=== PATIENT | female | born 1955 | race Caucasian/White ===

== ENCOUNTER → 2018-05-11 12:58 | Outpatient (CLI) | payer OTHER, SELFPAY ==
--- NOTE | 2018-05-11 | DI.MRI.S_ITS ---
PROCEDURE: MR SHOULDER RT WO CON INDICATIONS: PAIN IN RIGHT SHOULDER TECHNIQUE: Noncontrast oblique coronal T2 fast spin echo with fat saturation, oblique sagittal T1 spin echo and T2 fast spin echo with fat saturation, axial T1 spin echo and T2 fast spin echo with fat saturation through the shoulder. COMPARISON: None. FINDINGS: Image quality: Excellent. Rotator cuff: Tendinosis and low-grade articular and bursal surface partial-thickness tear involving distal supraspinatus at its insertion the humeral head is seen. Distal infraspinatus tendinosis is also noted. There is distal subscapularis tendinosis and low-grade intrasubstance partial thickness tear. No full-thickness rotator cuff tendon rupture. Sagittal images demonstrate no significant rotator muscle atrophy. Bones and bursae: No bone marrow contusions or fractures. Moderate acromioclavicular joint osteoarthritis is seen with joint space narrowing and prominent marginal osteophyte formation compressing on musculotendinous junction of supraspinatus. Mild glenohumeral joint osteoarthritis is also seen. The acromion demonstrates conventional anatomy, without an os acromiale. Small amount of fluid is seen in glenohumeral joint and subacromial subdeltoid bursa. Capsule and soft tissues: In the absence of intra-articular contrast, there is suggestion of focal superior anterior labral tear at 12 to 1:00 position. The glenohumeral ligaments appear intact. Tendinosis involving most proximal intra-articular portion of lung in the biceps tendon is seen. The rotator interval appears normal, without fibrosis. The coracohumeral ligament is normal in thickness. IMPRESSION: 1. Tendinosis and low-grade articular and bursal surface partial-thickness tear involving distal supraspinatus. Distal infraspinatus tendinosis. Distal subscapularis tendinosis and low-grade intrasubstance partial thickness tear. No full-thickness rotator cuff tendon rupture. Tendinosis involving most proximal intra-articular portion of long head biceps tendon. 2. Moderate acromioclavicular joint osteoarthritis and mild glenohumeral joint osteoarthritis. 3. Suggestion of focal superior anterior labral tear at 12 to 1:00 position. Dictated by: Christian Zhong M.D. on 05/11/2018 at 14:45 Approved by: Christian Zhong M.D. on 05/11/2018 at 14:49
== END ==
PROVIDERS: Visit Provider General Practice
DX: M25.511 Pain in right shoulder (principal); M75.111 Incomplete rotator cuff tear or rupture of right shoulder, not specified as traumatic; M19.011 Primary osteoarthritis, right shoulder
CPT/HCPCS: 73221

== ENCOUNTER → 2018-08-24 13:46 | Outpatient (REF) | payer OTHER, SELFPAY | LOC: LAB 13:46 | PROVIDERS: Visit Provider Otolaryngology | DX: J34.89 Other specified disorders of nose and nasal sinuses (principal); J01.41 Acute recurrent pansinusitis; G47.33 Obstructive sleep apnea (adult) (pediatric); J32.8 Other chronic sinusitis | CPT/HCPCS: 87070; 87077; 87147; 87186 ==

== ENCOUNTER 2018-10-18 10:08 | Day surgery (SDC) | payer OTHER, SELFPAY ==
--- NOTE | 2018-10-18 | PATH_ITS ---
[facility] Accession Number: [id number] . 01 Material submitted: . PART A: colon - ASCENDING COLON POLYP PART B: rectum - RECTAL POLYP . 02 Diagnosis: A. Ascending Colon, Polyp, Biopsy: Tubular adenoma. . B. Rectum, Polyp, Biopsy: Hyperplastic polyp. V/10/19/2018 . 02 Electronically signed: . Vicky Nolan MD, Pathologist NPI- [id number] . 01 Gross description: . Part A: ASCENDING COLON POLYP: Received in formalin are multiple fragment(s) of renae, soft tissue measuring 0.1 x 0.1 x 0.1 cm to 0.3 x 0.2 x 0.2 cm which is entirely submitted and submitted entirely in 1 cassette(s) Part B: RECTAL POLYP: Received in formalin is 1 fragment(s) of renae, soft tissue measuring 0.4 x 0.4 x 0.4 cm which is entirely submitted and submitted entirely in 1 cassette(s) /DMC /DMC . 02 Pathologist provided ICD-10: D12.2 . 02 CPT . 069910, [id number] Performed at: 01 [facility] [address] Formerly named [facility], [place], [place] [id number] MD Artemio Dixon MD Phone: [phone] Performed at: 02 [facility] [address] [place], [place] [id number] MD Vicky Nolan MD Phone: [phone]
[2018-10-18] MEDS: SODIUM CHLORIDE 0.9% 1,000 ML 100 ML IV (11:46)
[2018-10-18 11:57] VITALS: BP 152/66; PULSE 71; RESP 15; TEMP 36.2; O2SAT 96; BMI 30.7
--- NOTE | 2018-10-18 12:17 | PM.PREOP ---
Pre-operative Note Interval Note History & Physical reviewed/Exam performed by Physician: Yes Changes to H&P: No ASA Class (for procedural sedation): II
--- NOTE | 2018-10-18 12:18 | PM.OP.ENDO ---
Operative Date/Time/Diagnoses Date of procedure: 10/18/18 Time of procedure: 12:18 Pre-op diagnosis: See indication and findings Procedure & Clinicians Study performed: EGD and colonoscopy Same procedure as scheduled: Yes Indications: Dysphagia and history of colon polyps. Also worsening GE reflux. There is a cough but this probably related to lisinopril. Surgeon: Eloisa Cisneros Procedure Notes Procedure in detail: After informed consent was obtained the patient was placed in the left lateral decubitus position. The video upper scope was placed into the oropharynx and with the patient's help swallowed into the esophagus. The esophagus stomach and duodenum were carefully examined. On withdrawal retroflexed view the GE junction was performed. The scope was removed. The patient tolerated the procedure well. The patient was then turned and the scope was substituted and reduced to the rectum. The scope was easily passed the cecum. Preparation was good. On slow withdrawal mucosa was carefully examined. The scope was removed. The patient tolerated the procedure well. Blood loss none Complications none Sedation Total sedation time is 23 minutes Fentanyl 100 mg Versed 7 mg IV titration Findings EGD 1. Normal esophagus with fairly wide open lower esophageal sphincter 2. Normal stomach 3. Normal duodenum Colonoscopy 1. 3 x 8 mm ascending colon polyp removed piecemeal with Jumbo biopsy forceps 2. 6 mm polyp in the rectum Jumbo biopsy removed completely Three. Scattered diverticulosis Sigmoid colon resection at 15 cm. And decide. Completely normal. Will get back in touch with the patient regarding her polyp results. She will need follow-up colonoscopy in 5 years. As for her upper tract symptoms these will merely need to be treated with adjusting medications. She might try now going on Nexium b.i.d. to see if this helps even further.
--- NOTE | 2018-10-18 13:04 | SUR.OPER ---
GLASSES IN LABELED BAG TO PACU WITH PATIENT
[2018-10-18] MEDS: MIDAZOLAM 5 MG/5 ML VIAL IV (13:07)
[2018-10-18] MEDS: fentaNYL 250 MCG/5 ML INJ IV (13:08)
[2018-10-18 13:24] VITALS: BP 98/54; PULSE 68; RESP 14; TEMP 36.6; O2SAT 95
[2018-10-18 13:29] VITALS: BP 103/54; PULSE 67; RESP 12; O2SAT 96
[2018-10-18 13:34] VITALS: BP 106/48; PULSE 67; RESP 15; O2SAT 96
[2018-10-18 13:41] VITALS: BP 127/69; PULSE 68; RESP 14; O2SAT 94
[2018-10-18 13:52] VITALS: BP 132/71; PULSE 72; RESP 13; TEMP 36.2; O2SAT 97
== END 2018-10-18 14:18 | disposition home or self-care (01) ==
PROVIDERS: PCP Preventive Medicine Public Health & General Preventive Medicine; Visit Provider Internal Medicine Gastroenterology
PROC: 0DJD8ZZ Inspection of Lower Intestinal Tract, Via Natural or Artificial Opening Endoscopic (ICD-10-PCS; CPT 45378; principal; 2018-10-18 12:30)
PROC: 0DJ08ZZ Inspection of Upper Intestinal Tract, Via Natural or Artificial Opening Endoscopic (ICD-10-PCS; CPT 43235; 2018-10-18 12:30)
DX: Z86.010 Personal history of colon polyps (principal); R13.10 Dysphagia, unspecified; K21.9 Gastro-esophageal reflux disease without esophagitis; K57.30 Diverticulosis of large intestine without perforation or abscess without bleeding; I10 Essential (primary) hypertension; J45.909 Unspecified asthma, uncomplicated; E03.9 Hypothyroidism, unspecified; D12.2 Benign neoplasm of ascending colon; K62.1 Rectal polyp
CPT/HCPCS: 45380; 43235; 88305; J2250; J3010

== ENCOUNTER → 2019-12-08 15:03 | Outpatient (CLI) | payer OTHER, SELFPAY ==
--- NOTE | 2019-12-08 15:05 | DI.MG.S_ITS ---
BILATERAL DIGITAL SCREENING MAMMOGRAM 3D/2D WITH CAD: 12/08/2019 CLINICAL: Routine screening. Family history of breast cancer. Comparison is made to exams dated: 09/28/2018 mammogram, 08/25/2017 mammogram, and 09/15/2016 mammogram - [facility]. The tissue of both breasts is predominantly fatty. Current study was also evaluated with a Computer Aided Detection (CAD) system. There is a 0.7 cm oval focal asymmetry in the left breast at 7 o'clock in the retroareolar region. This is more prominent and increased in size. No other significant masses, calcifications, or other findings are seen in either breast. IMPRESSION: INCOMPLETE: NEEDS ADDITIONAL IMAGING EVALUATION The 0.7 cm oval focal asymmetry in the left breast resembles a cyst and is indeterminate. Additional views with possible ultrasound are recommended. This exam was interpreted at Station ID: [id number]. NOTE: For mammograms, a report in lay terms will be sent to the patient. Approximately 15% of breast malignancies will not be visualized mammographically. In the management of a palpable breast mass, a negative mammogram must not discourage biopsy of a clinically suspicious lesion. Electronically Signed By: Yves thompson/avelino:12/10/2019 09:08:12 letter sent: Additional Imaging Needed ACR BI-RADS Category 0: Incomplete 3340F
== END ==
PROVIDERS: PCP Preventive Medicine Public Health & General Preventive Medicine; Referring Provider Internal Medicine; Visit Provider Internal Medicine
DX: Z12.31 Encounter for screening mammogram for malignant neoplasm of breast (principal); Z80.3 Family history of malignant neoplasm of breast
CPT/HCPCS: 77063; 77067

== ENCOUNTER → 2019-12-10 07:49 | Outpatient (CLI) | payer OTHER, SELFPAY ==
--- NOTE | 2019-12-10 | DI.MRI.S_ITS ---
PROCEDURE: MR LUMBAR SPINE WO/W CON INDICATIONS: Nerve root and plexus disorder, unspecified TECHNIQUE: Noncontrast sagittal T1 spin echo and T2 fast spin echo, sagittal STIR, axial T1 and T2 fast spin echo through the lumbar spine. In cases with scoliosis, additional coronal T2 fast spin echo may be performed. After the administration of contrast, sagittal and axial T1 spin echo with fat saturation through the lumbar spine. In this patient, additional images were obtained through the sacrum, with oblique coronal T1-weighted and STIR images as well as oblique axial T1 weighted and STIR images. Postcontrast fat saturated T1-weighted images were also obtained through the sacrum and the oblique coronal and oblique axial planes. COMPARISON: None. FINDINGS: Image quality: Excellent. Alignment and curvature: There is normal bony alignment. Marrow: Marrow is of normal overall signal. No acute vertebral body compression fractures. No suspicious marrow enhancement. Spinal cord: Conus medullaris terminates at the T12-L1 level. Visualized spinal cord demonstrates normal signal, without suspicious enhancement. Paraspinous soft tissues: No paravertebral masses or abnormal enhancement. This patient has transitional lumbar anatomy. For the purposes of this examination, the level with the last well-developed disc space is considered to be L5-S1. T12-L1: Normal appearance. L1-L2: Moderate loss of disc height is seen. Loss of disc signal is seen. Moderate disc bulge is seen, which is eccentric to the right. Bridging endplate osteophytes are seen. There is a mild right foraminal disc protrusion seen. There is mild left-sided and moderate right-sided neural foraminal narrowing seen. Mild central canal narrowing is seen. L2-L3: Mild to moderate loss of disc height and disc signal can be seen. Moderate central canal narrowing is seen. There is a focal annular fissure seen posteriorly. Mild to moderate disc bulge is seen. Bridging endplate osteophytes are seen. Mild facet joint hypertrophy is seen. L3-L4: Moderate loss of disc height and disc signal can be seen. Moderate disc bulge is seen, which is eccentric to the right. There is a right lateral recess/right foraminal disc extrusion, with superior migration of the disc material. Moderate facet joint hypertrophy is seen. Fluid is seen within the facet joints themselves. There is at least moderate left-sided and moderate to severe right-sided neural foraminal narrowing seen. There is a degree of compression seen upon the exiting nerve roots. Moderate central canal narrowing is seen. L4-L5: The disc height is well-preserved. Loss of disc signal is seen at this level. Mild generalized disc bulge is seen. Mild to moderate facet hypertrophy is seen. Mild bilateral neural foraminal narrowing is seen. No significant central canal narrowing is seen. L5-S1: The disc height is well-preserved. Loss of disc signal is seen at this level. Mild generalized disc bulge is seen. Mild to moderate facet hypertrophy is seen. There is mild left-sided and no right-sided neural foraminal narrowing seen. No significant central canal narrowing is seen. The sacrum demonstrates normal signal, without abnormal enhancement. No abnormal signal or enhancement can be seen along the sacral plexus. IMPRESSION: Multiple levels of degenerative change are seen, which are overall most prominent at the L3-L4 level. Normal-appearing sacrum, without an abnormality detected of the sacral plexus. Transitional lumbar anatomy. Dictated by: Zak Cardenas M.D. on 12/10/2019 at 8:41 Approved by: Zak Cardenas M.D. on 12/10/2019 at 8:49
== END ==
PROVIDERS: PCP Internal Medicine; Referring Provider Internal Medicine; Visit Provider Internal Medicine
DX: M47.816 Spondylosis without myelopathy or radiculopathy, lumbar region (principal); M47.817 Spondylosis without myelopathy or radiculopathy, lumbosacral region
CPT/HCPCS: 72158

== ENCOUNTER → 2020-01-01 14:14 | Outpatient (CLI) | payer OTHER, SELFPAY ==
--- NOTE | 2020-01-01 | DI.US.S_ITS ---
ULTRASOUND OF LEFT BREAST: 01/01/2020 CLINICAL: Patient returns today to evaluate a focal asymmetry in the left breast. Comparison is made to exams dated: 01/01/2020 mammogram, 12/08/2019 mammogram - [facility], 08/25/2017 mammogram, 09/28/2018 mammogram, and 09/15/2016 mammogram - [facility]. Color flow ultrasound of the left breast was performed on the areas of interest. March scale images of the real-time examination were reviewed. There is a 0.9 cm x 0.6 cm x 0.4 cm oval cyst in the left breast at 9 o'clock anterior depth. This oval cyst displays internal echoes and posterior acoustic enhancement. This corresponds with mammographic findings. IMPRESSION: PROBABLY BENIGN The 0.9 cm x 0.6 cm x 0.4 cm oval cyst in the left breast is consistent with a complicated cyst and is probably benign. A follow-up left ultrasound in 6 months is recommended to demonstrate stability. This exam was interpreted at Station ID: [id number]. Electronically Signed By: Aleyda hu/:01/01/2020 15:38:45 letter sent: Followup Recommended Ultrasound BI-RADS: 3 Probably benign
--- NOTE | 2020-01-01 | DI.MG.S_ITS ---
UNILATERAL LEFT DIGITAL DIAGNOSTIC MAMMOGRAM 3D/2D WITH ADDITIONAL VIEWS: 01/01/2020 CLINICAL: Additional evaluation requested from prior study. Comparison is made to exams dated: 12/08/2019 mammogram - [facility], 09/28/2018 mammogram, and 08/25/2017 mammogram - [facility]. The tissue of left breast is predominantly fatty. There is an oval mass in the left breast at 9 o'clock anterior depth. This is seen in additional views. No other significant masses or calcifications are seen in the breast. IMPRESSION: INCOMPLETE: NEEDS ADDITIONAL IMAGING EVALUATION The oval mass in the left breast likely represents a cyst and is indeterminate. A targeted ultrasound of the left breast is recommended and will be performed immediately following this exam. This exam was interpreted at Station ID: [id number]. NOTE: For mammograms, a report in lay terms will be sent to the patient. Approximately 15% of breast malignancies will not be visualized mammographically. In the management of a palpable breast mass, a negative mammogram must not discourage biopsy of a clinically suspicious lesion. Electronically Signed By: Aleyda Pena M.D. lk/:01/01/2020 15:07:55 ACR BI-RADS Category 0: Incomplete [id number]
== END ==
PROVIDERS: PCP Internal Medicine; Referring Provider Internal Medicine; Visit Provider Internal Medicine
DX: R92.8 Other abnormal and inconclusive findings on diagnostic imaging of breast (principal); N60.02 Solitary cyst of left breast
CPT/HCPCS: 76642; 77065; G0279

== ENCOUNTER → 2020-06-02 07:29 | Outpatient (CLI) | payer OTHER, SELFPAY ==
--- NOTE | 2020-06-02 | DI.US.S_ITS ---
ULTRASOUND OF LEFT BREAST: 06/02/2020 CLINICAL: 6 month follow-up of cyst. Comparison is made to exams dated: 01/01/2020 ultrasound, 01/01/2020 mammogram, 12/08/2019 mammogram - [facility], 09/28/2018 mammogram, 08/25/2017 mammogram, and 09/15/2016 mammogram - [facility]. Color flow ultrasound of the left breast was performed. March scale images of the real-time examination were reviewed. There is a stable 0.9 cm x 0.6 cm x 0.4 cm oval cyst in the left breast at 9 o'clock anterior depth. This oval cyst displays internal echoes and posterior acoustic enhancement. IMPRESSION: BENIGN There is no sonographic evidence of malignancy. The stable 0.9 cm x 0.6 cm x 0.4 cm oval cyst in the left breast is consistent with a complicated cyst and is benign. Return to annual mammogram screening schedule is recommended. SCREENING MAMMOGRAM IS DUE IN 6 MONTHS This exam was interpreted at Station ID: [id number]. Electronically Signed By: Wilferdo Hartman acr/:06/02/2020 11:05:06 letter sent: Normal Exam Ultrasound BI-RADS: 2 Benign
== END ==
PROVIDERS: PCP Internal Medicine; Referring Provider Internal Medicine; Visit Provider Internal Medicine
DX: R92.8 Other abnormal and inconclusive findings on diagnostic imaging of breast (principal); N60.02 Solitary cyst of left breast
CPT/HCPCS: 76642

== ENCOUNTER 2020-06-02 22:55 | Observation (INO) | payer OTHER, SELFPAY ==
[2020-06-02 23:01] VITALS: PULSE 80; RESP 24; O2SAT 96
[2020-06-02 23:02] VITALS: BP 219/106; PULSE 80; RESP 18; O2SAT 95
[2020-06-02 23:07] VITALS: BP 219/109; PULSE 76; RESP 20; TEMP 36.6; O2SAT 97; BMI 33.3
--- NOTE | 2020-06-02 23:08 | ED.CHESTPAIN ---
HPI - Chest Pain General Chief Complaint: Hypertension Stated Complaint: HIGH BLOOD PRESSURE HEAVYNESS OF CHEST Time Seen by Provider: 06/02/20 22:58 Source: patient and family Mode of arrival: Ambulatory Limitations: no limitations History of Present Illness HPI narrative: 64-year-old female, former smoker with history of hypertension and GERD presents with a chief complaint of multiple episodes of anterior chest pressure as well as elevated blood pressure. She has recently seen her primary care provider and some alterations were made in her blood pressure medications, it sounds like largely the addition of spironolactone. She often has blood pressures in the 170s but this evening when she took it she noted it had risen to the 190s. She denied any headache or blurred vision. She states that over the past few weeks she has had increasing episodes of chest pressure with exertion and increased fatigue with exertion. She most recently had chest pressure this evening, while at rest. She denies any radiation of her discomfort nor associated symptoms such as diaphoresis, nausea, vomiting. She denies any history of cardiac disease and has never had provocative testing. MD complaint: chest pain Onset (ago): hour(s) Duration: intermittent and improved Onset: during rest and during exertion Pain location: substernal Severity: moderate Quality: tightness and aching Pain radiation: none Relieving factors: rest Exacerbating factors: exertion Associated symptoms: dyspnea Treatments prior to arrival chest pain: none Related Data On Oral Contraceptives: No Home Medications Medication Instructions Recorded Confirmed esomeprazole magnesium [Nexium] 40 mg PO QDAY #0 06/13/16 06/03/20 fexofenadine [Sherry Allergy] 180 mg PO QDAY #0 06/13/16 06/03/20 fluticasone propionate [Flonase 1 spray INTRANASAL QDAY #0 06/13/16 06/03/20 Allergy Relief] levothyroxine [Synthroid] 0.125 mg PO QAM #0 06/13/16 06/03/20 lisinopril 40 mg PO QDAY #0 06/13/16 06/03/20 Resmed Airsense CPAP #1 ea 11/14/18 06/03/20 trazodone 50 mg tablet 50 mg PO DAILY 11/14/18 06/03/20 spironolactone See Protocol PO DIRECTED 06/03/20 06/03/20 Previous Rx's Medication Instructions Recorded hydrocodone-acetaminophen [[place]] 1 tab PO Q6HP PRN #10 tab 06/13/16 carvedilol 6.25 mg tablet 6.25 mg PO BID #60 tab 12/21/19 chlorthalidone 25 mg tablet 25 mg PO DAILY #30 tab 12/21/19 Allergies Allergy/AdvReac Type Severity Reaction Status Date / Time gluten Allergy Severe Agitated Verified 06/02/20 23:07 amoxicillin [From AUGMENTIN] Allergy Unknown Verified 06/02/20 23:07 clavulanic acid Allergy Unknown Verified 06/02/20 23:07 [From AUGMENTIN] codeine [CODEINE] Allergy Unknown Verified 06/02/20 23:07 Review of Systems Constitutional Constitutional: Denies chills, Reports fatigue, Denies fever(s), Denies frequent falls, Denies lethargy and Denies weakness Eyes Eyes: Denies change in vision, Denies eye discharge, Denies irritation and Denies loss of vision ENT Ears, Nose, Mouth, and Throat: Denies change in voice, Denies dizziness, Denies neck pain, Denies sore throat and Denies throat swelling Cardiovascular Cardiovascular: Reports chest pain, Denies irregular heart rhythm, Denies lightheadedness, Denies palpitations, Denies dyspnea and Reports dyspnea on exertion Respiratory Respiratory: Denies cough, Denies dyspnea, Reports dyspnea on exertion and Denies wheezing Gastrointestinal Gastrointestinal: Denies abdominal pain, Denies change in bowel habits, Denies diarrhea, Denies nausea and Denies vomiting Musculoskeletal Musculoskeletal: Denies neck pain and Denies numbness Integumentary/Breasts Skin/Breast: Denies pruritus, Denies erythema, Denies rash and Denies wounds Neurologic Neurologic: Denies behavioral changes, Denies confusion, Denies dizziness, Denies frequent falls, Denies loss of vision, Denies numbness and Denies weakness Psychiatric Psychiatric: Denies anxiety, Denies behavioral changes, Denies confusion, Denies depression, Denies homicidal ideation and Denies suicidal ideation Endocrine Endocrine: Reports fatigue, Denies flushing and Denies palpitations Hematologic/Lymphatic Hematologic/Lymphatic: Denies easy bruising Allergic/Immunologic Allergic/Immunologic: Denies urticaria, Denies throat swelling and Denies wheezing Patient History Medical History Excessive daytime sleepiness Exercise-induced asthma Hypertension Hypothyroidism Obesity Obstructive sleep apnea syndrome Primary insomnia Snoring Family History (Updated 06/03/20 @ 04:24 by DINORAH Shepherd) Father Myocardial infarction Mother Cancer Brother Atrial fibrillation Sister Atrial fibrillation Myocardial infarction Social History marital status: household members: spouse lives independently: Yes caregiver/support person: No education level: college occupational status: employed ( [employer]) travel history: over 6 months ago Smoking Status: Former smoker alcohol intake: current Smoking Status: Former smoker alcohol intake frequency: 0-2 drinks per day Substance Use Type: does not use Exam Narrative Exam Narrative: GENERAL: [64] year old patient appears stated age. Well-nourished, well-developed patient, in mild distress. HEAD: Atraumatic. Normocephalic. EYES: Pupils equal round and reactive. Extraocular motions intact. No scleral icterus. No injection or drainage. ENT: Nose without bleeding, purulent drainage. Throat without erythema, tonsillar hypertrophy or exudate. Airway patent. NECK: Trachea midline. Non tender CARDIOVASCULAR: Regular rate and rhythm without murmurs, gallops, or rubs. RESPIRATORY: Clear to auscultation. Breath sounds equal bilaterally. No wheezes, rales, or rhonchi. GASTROINTESTINAL: Abdomen soft, non-tender, nondistended. EXTREMITIES: No edema or joint tenderness. BACK: Nontender without deformity or crepitance. No flank tenderness. NEURO: AOx3. SKIN: No rash or erythema of visible areas Initial Vital Signs Initial Vital Signs: Vital Signs Pulse Rate 80 06/02/20 23:01 Respiratory Rate 24 06/02/20 23:01 Pulse Oximetry 96 06/02/20 23:01 Course Course Course Narrative: Patient developed rather significant headache after nitro. Orders Ordered: ED Orders 06/02/20 23:04 Complete Blood Count AUTO DIFF Stat Comprehensive Metabolic Panel Stat D Dimer Stat Lipase Stat NT-proBNP (BNP-Adult 18+) Stat Prothrombin Time INR Stat Troponin & CK Cardiac Panel Stat 06/02/20 23:09 XR chest 1V Stat 06/03/20 00:04 COVID19 Stat 06/03/20 01:06 Education, smoking cessation ONGOING 06/03/20 01:09 Consult to Dietitian, Adult Routine Consult to Discharge Planning Routine 06/03/20 03:13 Troponin I Urgent 06/03/20 07:00 Basic Metabolic Panel Urgent Lipid Panel Urgent Magnesium Urgent Troponin I Urgent Acetaminophen (Acetaminophen 325 Mg Tablet) 650 mg PO Q6HR PRN PRN Reason: Fever/Mild Pain (1-3) Aspirin (Aspirin Ec 81 Mg Tablet) 81 mg PO DAILY [facility] Atorvastatin Calcium (Atorvastatin 20 Mg Tablet) 20 mg PO BEDTIME [facility] Bisacodyl (Bisacodyl 5 Mg Tablet) 10 mg PO DAILY PRN PRN Reason: Constipation Carvedilol (Carvedilol 3.125 Mg Tablet) 6.25 mg PO BIDWM [facility] Docusate Sodium (Docusate 100 Mg Capsule) 100 mg PO BID PRN PRN Reason: Constipation Enoxaparin Sodium (Enoxaparin 40 Mg/0.4 Ml Syringe) 40 mg SUBCUT DAILY [facility] Hydralazine HCl (Hydralazine 20 Mg/Ml Vial) 10 mg IV Q6HR PRN PRN Reason: Hypertension Sodium Chloride (Normal Saline 0.9%) 1,000 mls @ 50 mls/hr IV CONT [facility] Last Admin: 06/03/20 02:42 Dose: 50 mls/hr Documented by: CNEVEU Levothyroxine Sodium (Levothyroxine 125 Mcg Tablet) 125 mcg PO QACBREAK [facility] Lisinopril (Lisinopril 20 Mg Tablet) 40 mg PO DAILY [facility] Morphine Sulfate (Morphine 2 Mg/Ml Inj) 2 mg IV Q5MIN PRN PRN Reason: Chest Pain Naloxone HCl (Naloxone 0.4 Mg/Ml Vial) 0.2 mg IV Q2MIN PRN PRN Reason: Opiate Reversal Nitroglycerin (Nitroglycerin 0.4 Mg Sl Tab) 0.4 mg SL [id number] PRN PRN Reason: Chest Pain Ondansetron HCl (Ondansetron 4 Mg/2 Ml Inj) 4 mg IV Q8HR PRN PRN Reason: Nausea And Vomiting Pantoprazole Sodium (Pantoprazole 40 Mg Tablet) 40 mg PO 0600 [facility] Spironolactone (Spironolactone 25 Mg Tablet) 125 mg PO SEEINSTR [facility] Discontinued Medications Aspirin (Aspirin 81 Mg Chew Tab) 324 mg PO NOW ONE Stop: 06/02/20 23:09 Last Admin: 06/02/20 23:21 Dose: Not Given Documented by: RMARTIN Aspirin (Aspirin 81 Mg Chew Tab) 324 mg PO NOW ONE Stop: 06/02/20 23:49 Last Admin: 06/03/20 00:03 Dose: 324 mg Documented by: NILSON Sodium Chloride (Normal Saline 0.9%) 1,000 mls @ 150 mls/hr IV CONT [facility] Last Infusion: 06/03/20 01:20 Dose: 0 mls/hr Documented by: Admin: 06/02/20 23:16 Dose: 150 mls/hr Documented by: NILSON Nitroglycerin (Nitroglycerin 0.4 Mg Sl Tab) 0.4 mg SL [id number] PRN PRN Reason: Chest Pain Last Admin: 06/03/20 02:32 Dose: 0.4 mg Documented by: Admin: 06/02/20 23:16 Dose: 0.4 mg Documented by: NILSON Nitroglycerin (Nitroglycerin Oint 1 Inch/Gm Oint...G.) 1 inch TOP NOW ONE Stop: 06/03/20 02:57 Last Admin: 06/03/20 03:04 Dose: 1 inch Documented by: SABINO Pantoprazole Sodium (Pantoprazole 40 Mg Vial) 40 mg IV NOW ONE Stop: 06/03/20 00:06 Last Admin: 06/03/20 00:08 Dose: 40 mg Documented by: NILSON Consultations Consultation #1: discussed with restaurant front manager cardio (Korin). She shares the opinion that patient is best served to be admitted for provocative testing and echo. No need to transfer her unless patient rules in. Consultation #2: hospitalist happy to accept. Vital Signs Vital signs: Vital Signs - 8 hr 06/02/20 23:01 06/02/20 23:02 06/02/20 23:07 Temperature 97.8 F Pulse Rate 80 80 76 Respiratory Rate 24 18 20 Blood Pressure 219/106 H 219/109 H Pulse Oximetry 96 95 97 06/02/20 23:16 06/02/20 23:30 06/02/20 23:31 Temperature Pulse Rate 79 89 88 Respiratory Rate 20 20 Blood Pressure 219/106 H 180/84 H Pulse Oximetry 93 94 06/03/20 00:00 Temperature Pulse Rate 89 Respiratory Rate 18 Blood Pressure Pulse Oximetry 95 MDM - Chest Pain Lab Data Result diagrams: 06/02/20 23:04 06/02/20 23:04 Labs: Lab Results 06/02/20 06/02/20 06/02/20 Range/Units 23:04 23:04 23:04 WBC 8.6 (4.5-11.0) X10^3/uL RBC 4.26 (4.0-5.2) X10^6/uL Hgb 13.7 (12.0-16.0) g/dL Hct 39.5 (36-46) % MCV 92.7 (80-100) fL MCH 32.2 (26-34) PG MCHC 34.7 (30-36) % RDW 12.5 (11.6-14.8) % Plt Count 348 (150-400) X10^3/uL Neut % (Auto) 53.9 (50-75) % Lymph % (Auto) 33.7 (25-40) % [place] % (Auto) 9.7 (3-14) % Eos % (Auto) 1.8 L (2-4) % Baso % (Auto) 0.9 (0-2) % Neut # (Auto) 4600 (1002-4322) /uL Lymph # (Auto) 2900 (6421-8443) /uL [place] # (Auto) 800 (0-900) /uL Eos # (Auto) 200 (0-450) /uL Baso # (Auto) 100 (0-100) /uL PT 11.3 (10.1-12.7) SECONDS INR 1.0 (0.9-1.3) D-Dimer < 200 (<230) ng/mL Sodium 139 (137-145) mmol/L Potassium 4.0 (3.4-5.1) mmol/L Chloride 104 (98-107) mmol/L Carbon Dioxide 29 (22-32) mmol/L BUN 16 (7-17) mg/dL Creatinine 0.80 (0.52-1.04) mg/dL Estimated GFR > 60.0 (>60) mL/min BUN/Creatinine Ratio 20.0 (6-22) Glucose 108 (80-110) mg/dL Calcium 9.5 (8.4-10.2) mg/dL Total Bilirubin 0.4 (0.2-1.3) mg/dL AST 56 H (14-36) IU/L ALT 104 H (<35) IU/L Alkaline Phosphatase 78 (38-126) U/L Total Creatine Kinase 79 (30-135) U/L CK-MB (CK-2) TNP CK-MB (CK-2) Rel Index TNP Troponin I < 0.012 (0.01-0.034) ng/mL NT-Pro-B Natriuret Pep 57 (<125) pg/mL Total Protein 8.1 (6.3-8.2) g/dL Albumin 4.6 (3.5-5.0) g/dL Globulin 3.5 (1.7-4.1) g/dL Albumin/Globulin Ratio 1.3 (1.0-2.8) Lipase 109 (23-300) U/L COVID-19 PCR (Negative) 06/03/20 Range/Units 00:04 WBC (4.5-11.0) X10^3/uL RBC (4.0-5.2) X10^6/uL Hgb (12.0-16.0) g/dL Hct (36-46) % MCV (80-100) fL MCH (26-34) PG MCHC (30-36) % RDW (11.6-14.8) % Plt Count (150-400) X10^3/uL Neut % (Auto) (50-75) % Lymph % (Auto) (25-40) % [place] % (Auto) (3-14) % Eos % (Auto) (2-4) % Baso % (Auto) (0-2) % Neut # (Auto) (9494-8491) /uL Lymph # (Auto) (1544-4988) /uL [place] # (Auto) (0-900) /uL Eos # (Auto) (0-450) /uL Baso # (Auto) (0-100) /uL PT (10.1-12.7) SECONDS INR (0.9-1.3) D-Dimer (<230) ng/mL Sodium (137-145) mmol/L Potassium (3.4-5.1) mmol/L Chloride (98-107) mmol/L Carbon Dioxide (22-32) mmol/L BUN (7-17) mg/dL Creatinine (0.52-1.04) mg/dL Estimated GFR (>60) mL/min BUN/Creatinine Ratio (6-22) Glucose (80-110) mg/dL Calcium (8.4-10.2) mg/dL Total Bilirubin (0.2-1.3) mg/dL AST (14-36) IU/L ALT (<35) IU/L Alkaline Phosphatase (38-126) U/L Total Creatine Kinase (30-135) U/L CK-MB (CK-2) CK-MB (CK-2) Rel Index Troponin I (0.01-0.034) ng/mL NT-Pro-B Natriuret Pep (<125) pg/mL Total Protein (6.3-8.2) g/dL Albumin (3.5-5.0) g/dL Globulin (1.7-4.1) g/dL Albumin/Globulin Ratio (1.0-2.8) Lipase (23-300) U/L COVID-19 PCR Negative (Negative) MDM Narrative Medical decision making narrative: Though patient presents with chief complaint of elevated BP there is no clear temporal relationship between HTN and chest pain, when in fact the CP seems to be provoked by exertion. Patient requires admission to further evaluate this. Discharge Plan Departure Patient Disposition: Admitted as Observation Clinical Impression: Chest pain Admit Date/Time: 06/03/20 01:08 Admit Provider: Delfin Piña
--- NOTE | 2020-06-02 23:09 | DI.RAD.S_ITS ---
PROCEDURE: XR CHEST 1V INDICATIONS: chest pain TECHNIQUE: One view of the chest was acquired. COMPARISON: None. FINDINGS: Surgical changes and devices: None. Lungs and pleura: Lungs are clear. No pleural effusions or pneumothorax. Mediastinum: Mediastinal contours appear normal. Heart size is normal. Bones and chest wall: No suspicious bony lesions. Overlying soft tissues appear unremarkable. IMPRESSION: No acute cardiopulmonary disease. Dictated by: Bailey Silva M.D. on 06/03/2020 at 8:46 Approved by: Bailey Silva M.D. on 06/03/2020 at 8:46
[2020-06-02 23:16] VITALS: BP 219/106; PULSE 79
[2020-06-02] MEDS: NITROGLYCERIN 0.4 MG SL TAB SL (23:16)
[2020-06-02] MEDS: SODIUM CHLORIDE 0.9% 1,000 ML 150 ML IV (23:16)
[2020-06-02 23:19] LABS: Add Manual Diff / Slide Review NO; Basophils Absolute Auto 100 /uL (0-100); Basophils Percent Auto 0.9 % (0-2); Eosinophils Absolute Auto 200 /uL (0-450); Eosinophils Percent Auto 1.8 % (2-4); Hematocrit 39.5 % (36-46); Hemoglobin 13.7 g/dL (12.0-16.0); Lymphocytes Absolute Auto 2900 /uL (1100-4500); Lymphocytes Percent Auto 33.7 % (25-40); Mean Corpuscular HGB Conc 34.7 % (30-36); Mean Corpuscular Hemoglobin 32.2 PG (26-34); Mean Corpuscular Volume 92.7 fL (80-100); Monocytes Absolute Auto 800 /uL (0-900); Monocytes Percent Auto 9.7 % (3-14); Neutrophils Absolute Auto 4600 /uL (1500-7000); Neutrophils Percent Auto 53.9 % (50-75); Platelet Count 348 X10^3/uL (150-400); Red Blood Cell Count 4.26 X10^6/uL (4.0-5.2); Red Cell Distribution Width 12.5 % (11.6-14.8); White Blood Cell Count 8.6 X10^3/uL (4.5-11.0)
[2020-06-02 23:21] LABS: Prothrombin Time 11.3 SECONDS (10.1-12.7)
[2020-06-02 23:25] LABS: Alanine Aminotransferase 104 IU/L (<35); Albumin 4.6 g/dL (3.5-5.0); Albumin Globulin Ratio 1.3 (1.0-2.8); Alkaline Phosphatase 78 U/L (38-126); Aspartate Aminotransferase 56 IU/L (14-36); Bilirubin Total 0.4 mg/dL (0.2-1.3); Blood Urea Nitrogen 16 mg/dL (7-17); Calcium 9.5 mg/dL (8.4-10.2); Carbon Dioxide 29 mmol/L (22-32); Chloride 104 mmol/L (98-107); Creatine Kinase 79 U/L (30-135); D Dimer < 200 ng/mL (<230); Estimated Glomerular Filt Rate > 60.0 mL/min (>60); Globulin 3.5 g/dL (1.7-4.1); Glucose 108 mg/dL (80-110); HEMOLYSIS 22 (0-50); Lipase 109 U/L (23-300); Sodium 139 mmol/L (137-145); Total Protein 8.1 g/dL (6.3-8.2)
[2020-06-02 23:30] VITALS: PULSE 89; RESP 20; O2SAT 93
[2020-06-02 23:31] VITALS: BP 180/84; PULSE 88; RESP 20; O2SAT 94
[2020-06-02 23:37] LABS: NT-proBNP (BNP-Adult 18+) 57 pg/mL (<125); Troponin I < 0.012 ng/mL (0.01-0.034)
[2020-06-03] VITALS (11 sets, daily range): BP systolic 138–183; BP diastolic 75–100; PULSE 74–89; RESP 16–20; TEMP 35.9–36.4; O2SAT 95–98; BMI 33.3
[2020-06-03] MEDS: ASPIRIN 81 MG CHEW TAB 324 MG PO (00:03)
[2020-06-03] MEDS: PANTOPRAZOLE 40 MG VIAL IV (00:08)
[2020-06-03 00:36] LABS: COVID19 -Nasal RAPID Negative (Negative)
--- NOTE | 2020-06-03 02:20 | PC.NURSE ---
patient admitted to AC room 207 from ED, report received from ER nurse. Pt can ambulate independently and was able to go to the bathroom without assistance. Pt admission assessment done. Pt complains of chest tightness while in the elevator with ED RN. EKG obtained, Pt is hypertensive without any symptoms aside from chest tightness
[2020-06-03] MEDS: NITROGLYCERIN 0.4 MG SL TAB SL (02:32)
[2020-06-03] MEDS: SODIUM CHLORIDE 0.9% 1,000 ML 50 ML IV (02:42)
[2020-06-03] MEDS: NITROGLYCERIN OINT 1 INCH/GM OINT...G. TOP (03:04)
--- NOTE | 2020-06-03 03:06 | PM.HP.1 ---
History of Present Illness History of Present Illness Date Patient Seen: 06/03/20 Time Patient Seen: 02:30 Chief complaint: HIGH BLOOD PRESSURE HEAVYNESS OF CHEST Narrative: Ms. Mery Price is a 64-year-old female patient with a past medical history significant for exercise-induced asthma, hypertension, hypothyroidism obstructive sleep apnea on CPAP and obesity presents to the ER with complaints of chest pain. The patient recent ports developing 2 episodes of chest pain today with an onset with activity that is nonradiating and nonpleuritic. She does report associated palpitations with shortness of breath and diaphoresis that she thought initially was hot flashes. The patient endorses increasing exertional dyspnea over the last week when walking up hills or stairs. The patient also endorses a 20 lb weight gain over the last few months. The patient reports having routine labs done with low potassium and was recently taken off chlorthalidone and started on spirolactone. She reports blood pressure was up to 190's at home today prompting her to present to the emergency department. She has had no recent flu or cold symptoms, fevers or chills. She endorses that her mother has COVID-19 following at [facility]. She denies headaches or dizziness nasal congestion or sore throat. Chest substernal chest pain as described above with palpitations. She denies epigastric or abdominal pain, no nausea vomiting, no diarrhea or constipation. She denies urinary symptoms. Upon arrival the ER the patient has a temperature of 97.8?, heart rate of 76, blood pressure 219/109, respiratory rate 20 saturating 97% on room air. Chest x-rays taken which finds minimal bibasilar atelectasis. On laboratory analysis he has white count of 8.6, hemoglobin of 13.7, hematocrit of 39.5 platelets 348. She has a PT of 11.3 and INR 1.0. Her D-dimer is less than 200. Her electrolytes are all within normal limits and she has a BUN of 16 and creatinine 0.8. Her nonfasting glucose is 108. She has a total bilirubin of 0.4, AST of 56, ALT of 104 and alkaline phosphatase of 78. Her total CK 79 and troponin is less than 0.012. Her proBNP is 57. COVID screening is negative. In the ER the patient received aspirin 324 mg, nitroglycerin for chest pain and Protonix. Cardiology was consulted and Dr. Langley agrees with admission following troponins and stress test. The patient is admitted to the medicine service for chest pain rule out ACS. Patient History Medical History Excessive daytime sleepiness Exercise-induced asthma Hypertension Hypothyroidism Obesity Obstructive sleep apnea syndrome Primary insomnia Snoring Family & Social History Family History (Updated 06/03/20 @ 04:24 by DINORAH Shepherd) Father Myocardial infarction Mother Cancer Brother Atrial fibrillation Sister Atrial fibrillation Myocardial infarction Social History: household members spouse Prior Living Arrangements House lives independently Yes caregiver/support person No Safety & Behavioral: Feels Safe in Current Yes Environment Been Physically Hurt or No Threatened By a Person Suicidal Ideation Description None Suicide Plan Description No Plan Tobacco & Substance use: Smoking Status Former smoker alcohol intake current alcohol intake frequency 0-2 drinks per day Substance Use Type does not use Meds Home Medications and Allergies Home Medications Medication Instructions Recorded Confirmed Type esomeprazole magnesium [Nexium] 40 mg PO QDAY #0 06/13/16 06/03/20 History fexofenadine [Sherry Allergy] 180 mg PO QDAY #0 06/13/16 06/03/20 History fluticasone propionate [Flonase 1 spray INTRANASAL QDAY #0 06/13/16 06/03/20 History Allergy Relief] hydrocodone-acetaminophen [Kinde] 1 tab PO Q6HP PRN #10 tab 06/13/16 06/03/20 Rx levothyroxine [Synthroid] 0.125 mg PO QAM #0 06/13/16 06/03/20 History lisinopril 40 mg PO QDAY #0 06/13/16 06/03/20 History Resmed Airsense CPAP #1 ea 11/14/18 06/03/20 History trazodone 50 mg tablet 50 mg PO DAILY 11/14/18 06/03/20 History carvedilol 6.25 mg tablet 6.25 mg PO BID #60 tab 12/21/19 06/03/20 Rx chlorthalidone 25 mg tablet 25 mg PO DAILY #30 tab 12/21/19 06/03/20 Rx spironolactone See Protocol PO DIRECTED 06/03/20 06/03/20 History Allergies Allergy/AdvReac Type Severity Reaction Status Date / Time gluten Allergy Severe Agitated Verified 06/02/20 23:07 amoxicillin [From AUGMENTIN] Allergy Unknown Verified 06/02/20 23:07 clavulanic acid Allergy Unknown Verified 06/02/20 23:07 [From AUGMENTIN] codeine [CODEINE] Allergy Unknown Verified 06/02/20 23:07 Review of Systems Review of Systems ROS: Yes All systems reviewed with the patient and are negative except as otherwise documented Exam Vital Signs (past 8 hours): - 06/02/20 23:01 06/02/20 23:02 06/02/20 23:07 Temperature 97.8 F Pulse Rate 80 80 76 Respiratory Rate 24 18 20 Blood Pressure 219/106 H 219/109 H Pulse Oximetry 96 95 97 06/02/20 23:16 06/02/20 23:30 06/02/20 23:31 Temperature Pulse Rate 79 89 88 Respiratory Rate 20 20 Blood Pressure 219/106 H 180/84 H Pulse Oximetry 93 94 06/03/20 00:00 06/03/20 01:54 06/03/20 02:20 Temperature 96.7 F L Pulse Rate 89 76 88 Respiratory Rate 18 20 16 Blood Pressure 183/95 H 156/85 H Pulse Oximetry 95 96 97 06/03/20 02:32 Temperature Pulse Rate 88 Respiratory Rate Blood Pressure 156/85 H Pulse Oximetry Oxygen Delivery Method Room Air Narrative Exam Narrative: GENERAL APPEARANCE: well developed, obese female with a BMI of 33.3, in no acute distress. HEENT: Normocephalic, PERRLA, conjunctiva clear, EOMs intact without nystagmus, mucous membranes are moist and pink. NECK/THYROID: neck supple, no JVD, no thyromegaly, trachea midline. LYMPH NODES: no cervical or supraclavicular lymphadenopathy. SKIN: [place], warm and dry, no visible lesions, rashes, ulcerations or petechiae. HEART: regular rate and rhythm, S1-S2, no murmur, no rubs or gallops, brisk capillary refill, trace bilateral lower extremity edema LUNGS: clear to auscultation bilaterally, no coarseness crackles or wheezing, no cough present CHEST: Symmetrical movement, no accessory muscle use, good tidal volume. ABDOMEN: Soft, round, tympanitic to percussion, no abdominal tenderness, no guarding or peritoneal signs, no organomegaly, no flank or suprapubic tenderness, active bowel tones. BACK: Normal curvature, nontender to palpation, no CVA tenderness on percussion EXTREMITIES: moves all extremities, strength is 5/5 and symmetrical, no deformities or joint effusions. NEUROLOGIC: AAO x 3, no focal neurologic deficits, cranial nerves II-XII grossly intact, sensation intact to light touch, hearing grossly normal to speech. PSYCH: Good judgment, good insight, linear thought process, cooperative, appropriate with stable behavior Objective Labs Result Diagrams: 06/02/20 23:04 06/02/20 23:04 Labs: Laboratory Results - last 24 hr 06/02/20 06/02/20 06/02/20 23:04 23:04 23:04 WBC 8.6 RBC 4.26 Hgb 13.7 Hct 39.5 MCV 92.7 MCH 32.2 MCHC 34.7 RDW 12.5 Plt Count 348 Neut % (Auto) 53.9 Lymph % (Auto) 33.7 [place] % (Auto) 9.7 Eos % (Auto) 1.8 L Baso % (Auto) 0.9 Neut # (Auto) 4600 Lymph # (Auto) 2900 [place] # (Auto) 800 Eos # (Auto) 200 Baso # (Auto) 100 PT 11.3 INR 1.0 D-Dimer < 200 Sodium 139 Potassium 4.0 Chloride 104 Carbon Dioxide 29 BUN 16 Creatinine 0.80 Estimated GFR > 60.0 BUN/Creatinine Ratio 20.0 Glucose 108 Calcium 9.5 Total Bilirubin 0.4 AST 56 H ALT 104 H Alkaline Phosphatase 78 Total Creatine Kinase 79 CK-MB (CK-2) TNP CK-MB (CK-2) Rel Index TNP Troponin I < 0.012 NT-Pro-B Natriuret Pep 57 Total Protein 8.1 Albumin 4.6 Globulin 3.5 Albumin/Globulin Ratio 1.3 Lipase 109 COVID-19 PCR 06/03/20 00:04 WBC RBC Hgb Hct MCV MCH MCHC RDW Plt Count Neut % (Auto) Lymph % (Auto) [place] % (Auto) Eos % (Auto) Baso % (Auto) Neut # (Auto) Lymph # (Auto) [place] # (Auto) Eos # (Auto) Baso # (Auto) PT INR D-Dimer Sodium Potassium Chloride Carbon Dioxide BUN Creatinine Estimated GFR BUN/Creatinine Ratio Glucose Calcium Total Bilirubin AST ALT Alkaline Phosphatase Total Creatine Kinase CK-MB (CK-2) CK-MB (CK-2) Rel Index Troponin I NT-Pro-B Natriuret Pep Total Protein Albumin Globulin Albumin/Globulin Ratio Lipase COVID-19 PCR Negative Assessment & Plan Assessment & Plan narrative: This is a 64-year-old female who presents to the hospital with with 2 episodes of chest pain associated with severe hypertension and progressive exertional dyspnea. 1. Acute chest pain, substernal, nonradiating, present on admission, active -patient without prior personal history cardiovascular disease however significant family history including her father brother and sister. -patient endorses increasing exertional dyspnea for 1 week, 2 episodes of chest pain today with episode chest pain for which she received nitroglycerin in the emergency department. -total CK is 79 and troponin is less than 0.012. BNP is 57. D-dimer is less than 200. -12 lead EKG reveals a normal sinus rhythm with a rate of 78 without ectopy or block, no ST or T-wave changes, no evidence of infarct. -chest x-ray reveals a normal cardiac silhouette with minimal bibasilar atelectasis. -patient received aspirin 324 mg in the emergency department, ordered aspirin 81 mg daily. -ordered atorvastatin 20 mg daily at bedtime -ordered nitroglycerin 0.4 mg sublingual Q 5 minutes x3 as needed for chest pain. -ordered morphine 2 mg IV as needed for chest pain unresponsive to nitroglycerin. -ordered echocardiogram. -Ordered cardiac stress test 40 the patient will be NPO. -will check a lipid panel, hemoglobin A1c, TSH and free T4. 2. Acute hypertensive urgency on chronic hypertension, present on admission, active. -patient presents to the the ER with complaints of chest pain and has elevated blood pressure of 219/109. Blood pressure improved to 162/75 following admission to the inpatient unit. -patient has had recent change in her antihypertensives changing from chlorthalidone to spirolactone. -will continue the patient's routine home regimen of lisinopril, spironolactone and carvedilol. -order hydralazine 10 mg IV as needed for systolic blood pressure greater than 180 or diastolic blood pressure greater than 100. 3. Hypothyroidism, chronic, stable -will continue patient's home regimen of levothyroxine 125 mcg daily. -ordered TSH and free T4 level. 4. Obstructive sleep apnea with CPAP, chronic, stable -requested respiratory therapy consult, patient has own CPAP machine. VTE prophylaxis: Enoxaparin IV fluid: Normal saline 50 cc/hour. Diet: NPO. Code status: Full code, The patient designates her son Albert to be her surrogate decision maker. The patient is admitted to the hospital due to the severity and persistence of her symptoms requiring further evaluation and treatment to prevent complications and adverse events. The patient is admitted as an observation with expected length of stay to be less than 2 midnights. COVID-19 COVID-19 status: Negative Result date/Date tested (Pos, Neg/Pending): 06/03/20 Scores GCS Sourav coma scale eye opening: Spontaneous Sourav coma scale verbal response: Orientated Sourav coma scale motor response: Obey commands [place] coma scale total score: 15
[2020-06-03 03:43] LABS: Troponin I < 0.012 ng/mL (0.01-0.034)
--- NOTE | 2020-06-03 04:16 | DI.ECHO.S_ITS ---
[facility]---------+ [facility] +---------+ : : [address] [address] : : : : [id number] : : : : Phone: [phone] Echocardiogram Report + + :Name: YULIANA REINOSO Study Date: 06/03/2020 Height: 65 in : :[facility] Weight: 200 lb : : Gender: Female BSA: 2.0 m2 : :: 1955 Age: 64 yrs BP: 183/95 mmHg: :Reason For Study: CHEST PAIN, EXERTIONAL DYSPNEA : :Ordering Physician: JOVI, : :DARIN COPELAND Performed By: Nhi Amador : :Referring: DARIN ESPANA : + + Interpretation Summary The left ventricle is normal in size. Left ventricular systolic function appears normal without focal wall motion abnormalities. The ejection fraction is estimated to be 60-65%. The right ventricle is normal in size and function. The right ventricular systolic pressure is estimated to be at least 40 mmHg based on an estimated right atrial pressure of 15 mm Hg. The left atrium is mildly dilated. Right atrial size is normal. There is mild to moderate mitral regurgitation. There is no other significant valvular heart disease. The aortic root is normal size. Procedure: A two-dimensional transthoracic echocardiogram with color flow and Doppler was performed. The study quality was technically adequate. There is no prior echocardiogram noted for this patient. The patient was in sinus rhythm with heart rates between 72-94 bpm during the exam. Left Ventricle: The left ventricle is normal in size. Left ventricular wall thickness is at the upper limits of normal. Left ventricular systolic function appears normal without focal wall motion abnormalities. The ejection fraction is estimated to be 60-65%. Right Ventricle: The right ventricle is normal in size and function. Atria: The left atrium is mildly dilated. Right atrial size is normal. There is no Doppler evidence for an interatrial shunt. Mitral Valve: The mitral valve leaflets appear mildly thickened, but open well. There is mild to moderate mitral regurgitation. Aortic Valve: The aortic valve is trileaflet. The aortic valve opens well. There is no aortic valve stenosis. No aortic regurgitation is present. Tricuspid Valve: The tricuspid valve leaflets are thin and pliable. The right ventricular systolic pressure is estimated to be at least 40 mmHg based on an estimated right atrial pressure of 15 mm Hg. There is mild to moderate tricuspid regurgitation. Pulmonic Valve: The pulmonic valve is not well visualized. There is no pulmonic valvular regurgitation. There is no other significant valvular heart disease. Great Vessels: The aortic root is normal size. The IVC is dilated (diameter is greater than 2.1 cm) and it collapses less than 50% with a sniff. This suggests a high right atrial pressure of 15 mm Hg. Pericardium/ Pleura There is no pericardial effusion. There is no pleural effusion. MMode/2D Measurements & Calculations LVIDd: 4.1 cm LVOT diam: 1.9 cm LVIDs: 2.5 cm Ao root diam: 3.0 cm FS: 39.4 % Ao Arch Diam (Prox Trans): 2.8 cm EPSS: 0.53 cm IVSd: 1.1 cm LVPWd: 1.0 cm LV lion. diameter/BSA (cm/m^2): 2.1 LV sys. diameter/BSA (cm/m^2): 1.3 LA A2 area: 21.5 cm2 RA long axis: 5.0 cm LA A4 area: 19.7 cm2 RA area: 15.9 cm2 LA length (vol): 5.6 cm RA vol: 43.2 ml LA vol: 64.0 ml RA : 21.8 ml/m2 LA vol index: 32.3 ml/m2 IVC diam: 2.2 cm RVD1 (basal): 3.6 cm TAPSE: 2.0 cm Doppler Measurements & Calculations Ao V2 max: 124.5 cm/sec LVOT Max Ric: 115.9 cm/sec Ao V2 mean: 87.7 cm/sec LV V1 max P.4 mmHg Ao max P.2 mmHg LV V1 VTI: 25.3 cm Ao mean P.5 mmHg ELYSSA(I,D): 2.5 cm2 Ao V2 VTI: 27.4 cm ELYSSA(V,D): 2.5 cm2 sev ratio: 0.92 ELYSSA indexed to BSA (cm^2/m^2): 1.3 Med Peak E' Ric: 6.8 cm/sec TR max ric: 248.9 cm/sec Lat Peak E' Ric: 10.3 cm/sec TR max P.8 mmHg PA V2 max: 66.7 cm/sec PA V2 mean: 46.0 cm/sec PA mean P.96 mmHg PA pr(Accel): 3.6 mmHg SV(LVOT): 68.9 ml Reading Physician:02:32 PM
[2020-06-03] MEDS: PANTOPRAZOLE 40 MG TABLET PO (05:41)
[2020-06-03] MEDS: LEVOTHYROXINE 137 MCG TABLET PO (06:49)
[2020-06-03] MEDS: ACETAMINOPHEN 325 MG TABLET 650 MG PO (07:47)
[2020-06-03] MEDS: ASPIRIN EC 81 MG TABLET PO (07:47)
[2020-06-03] MEDS: ENOXAPARIN 40 MG/0.4 ML SYRINGE SUBCUT (07:47)
[2020-06-03 08:00] LABS: BUN Creatinine Ratio 26.1 (6-22); Blood Urea Nitrogen 18 mg/dL (7-17); Calcium 8.9 mg/dL (8.4-10.2); Carbon Dioxide 27 mmol/L (22-32); Chloride 107 mmol/L (98-107); Cholesterol 157 mg/dL (140-199); Estimated Glomerular Filt Rate > 60.0 mL/min (>60); Glucose 114 mg/dL (80-110); HDL Cholesterol 28 mg/dL (40-60); HEMOLYSIS < 15 (0-50); LDL Cholesterol Calculated 88 mg/dL (<100); Magnesium 2.2 mg/dL (1.6-2.3); Potassium 3.8 mmol/L (3.4-5.1); Sodium 139 mmol/L (137-145); Triglycerides 206 mg/dL (35-150)
[2020-06-03 08:12] LABS: Hemoglobin A1C% w Est Avg Glu 5.6 % (4.0-6.0); Troponin I < 0.012 ng/mL (0.01-0.034)
[2020-06-03 08:17] LABS: Free T4, Direct Thyroxine 1.07 ng/dL (0.78-2.19)
--- NOTE | 2020-06-03 10:48 | PC.NURSE ---
Day shiift: Pt off funit for stress test at approx 1045.
--- NOTE | 2020-06-03 12:30 | PC.NURSE ---
Day shift: Pt back on AC unit at approx 1230. Per Stress Test OK for Pt to eat and drink now.
[2020-06-03] MEDS: MAG HYDROX/ALUM/SIMETH 30 ML UDC PO (14:28)
--- NOTE | 2020-06-03 16:49 | P.DS_ITS ---
History of Present Illness History of Present Illness Date Patient Seen: 06/03/20 Time Patient Seen: 16:49 Chief complaint: HIGH BLOOD PRESSURE HEAVYNESS OF CHEST Narrative: As per DINORAH Shepherd: Ms. Mery Price is a 64-year-old female patient with a past medical history significant for exercise-induced asthma, hypertension, hypothyroidism obstructive sleep apnea on CPAP and obesity presents to the ER with complaints of chest pain. The patient recent ports developing 2 episodes of chest pain today with an onset with activity that is nonradiating and nonpleuritic. She does report associated palpitations with shortness of breath and diaphoresis that she thought initially was hot flashes. The patient endorses increasing exertional dyspnea over the last week when walking up hills or stairs. The patient also endorses a 20 lb weight gain over the last few months. The patient reports having routine labs done with low potassium and was recently taken off chlorthalidone and started on spirolactone. She reports blood pressure was up to 190's at home today prompting her to present to the emergency department. She has had no recent flu or cold symptoms, fevers or chills. She endorses that her mother has COVID-19 following at [facility]. She denies headaches or dizziness nasal congestion or sore throat. Chest substernal chest pain as described above with palpitations. She denies epigastric or abdominal pain, no nausea vomiting, no diarrhea or constipation. She denies urinary symptoms. Upon arrival the ER the patient has a temperature of 97.8?, heart rate of 76, blood pressure 219/109, respiratory rate 20 saturating 97% on room air. Chest x-rays taken which finds minimal bibasilar atelectasis. On laboratory analysis he has white count of 8.6, hemoglobin of 13.7, hematocrit of 39.5 platelets 348. She has a PT of 11.3 and INR 1.0. Her D-dimer is less than 200. Her electrolytes are all within normal limits and she has a BUN of 16 and creatinine 0.8. Her nonfasting glucose is 108. She has a total bilirubin of 0.4, AST of 56, ALT of 104 and alkaline phosphatase of 78. Her total CK 79 and troponin is less than 0.012. Her proBNP is 57. COVID screening is negative. In the ER the patient received aspirin 324 mg, nitroglycerin for chest pain and Protonix. Cardiology was consulted and Dr. Langley agrees with admission following troponins and stress test. The patient is admitted to the medicine service for chest pain rule out ACS. Discharge Providers Provider Date of admission: 06/03/20 01:08 Discharge Date: 06/03/20 Primary care physician: Alejandra Barakat MD Consults: 06/03/20 01:09 Consult to Dietitian, Adult Routine Comment: Reason For Exam: Hypertensive urgency and chest Consult to Discharge Planning Routine Comment: 06/03/20 04:50 Consult to Respiratory Therapy Evaluate & Treat Comment: WATSON with CPAP Physician Instructions: Evaluate and treat Discharge provider: Delfin Regalado DO Summary Hospital Course Discharge Diagnosis: 1. Acute chest pain, substernal, nonradiating, present on admission, active 2. hypertensive urgency on chronic hypertension, present on admission, active. 3. Hypothyroidism, chronic, stable 4. Obstructive sleep apnea with CPAP, chronic, stableelow Hospital Course: This is a 64-year-old female who presented to the hospital with with 2 episodes of chest pain associated with severe hypertension and progressive exertional dyspnea. Patient had an intermediate risk score on admi ssion and underwent nuclear stress testing which was deemed low risk. Echocardiogram was unremarkable. She was discharged home with increased dosing of carvedilol and recommendation for follow up as an outpatient. Further evaluation can include pulmonary function testing as an outpatient. Exam Vital Signs (past 8 hours): - 06/03/20 12:50 06/03/20 14:22 06/03/20 15:10 Temperature 96.9 F L 97.5 F L Pulse Rate 83 85 77 Respiratory Rate 16 17 Blood Pressure 170/100 H 165/90 H 152/83 H Pulse Oximetry 96 97 Oxygen Delivery Method Room Air Oxygen Flow Rate 0 Narrative Exam Narrative: GENERAL APPEARANCE: well developed, obese female with a BMI of 33.3, in no acute distress. HEENT: Normocephalic, PERRLA, conjunctiva clear, EOMs intact without nystagmus, mucous membranes are moist and pink. NECK/THYROID: neck supple, no JVD, no thyromegaly, trachea midline. LYMPH NODES: no cervical or supraclavicular lymphadenopathy. SKIN: [place], warm and dry, no visible lesions, rashes, ulcerations or petechiae. HEART: regular rate and rhythm, S1-S2, no murmur, no rubs or gallops, brisk capillary refill, trace bilateral lower extremity edema LUNGS: clear to auscultation bilaterally, no coarseness crackles or wheezing, no cough present CHEST: Symmetrical movement, no accessory muscle use, good tidal volume. ABDOMEN: Soft, round, tympanitic to percussion, no abdominal tenderness, no guarding or peritoneal signs, no organomegaly, no flank or suprapubic tenderness, active bowel tones. BACK: Normal curvature, nontender to palpation, no CVA tenderness on percussion EXTREMITIES: moves all extremities, strength is 5/5 and symmetrical, no deformities or joint effusions. NEUROLOGIC: AAO x 3, no focal neurologic deficits, cranial nerves II-XII grossly intact, sensation intact to light touch, hearing grossly normal to speech. PSYCH: Good judgment, good insight, linear thought process, cooperative, appropriate with stable behavior Objective Labs Result Diagrams: 06/02/20 23:04 06/03/20 07:16 Labs: Laboratory Results - last 24 hr 06/02/20 06/02/20 06/02/20 23:04 23:04 23:04 WBC 8.6 RBC 4.26 Hgb 13.7 Hct 39.5 MCV 92.7 MCH 32.2 MCHC 34.7 RDW 12.5 Plt Count 348 Neut % (Auto) 53.9 Lymph % (Auto) 33.7 Union % (Auto) 9.7 Eos % (Auto) 1.8 L Baso % (Auto) 0.9 Neut # (Auto) 4600 Lymph # (Auto) 2900 Union # (Auto) 800 Eos # (Auto) 200 Baso # (Auto) 100 PT 11.3 INR 1.0 D-Dimer < 200 Sodium 139 Potassium 4.0 Chloride 104 Carbon Dioxide 29 BUN 16 Creatinine 0.80 Estimated GFR > 60.0 BUN/Creatinine Ratio 20.0 Glucose 108 Hemoglobin A1c Calcium 9.5 Magnesium Total Bilirubin 0.4 AST 56 H ALT 104 H Alkaline Phosphatase 78 Total Creatine Kinase 79 CK-MB (CK-2) TNP CK-MB (CK-2) Rel Index TNP Troponin I < 0.012 NT-Pro-B Natriuret Pep 57 Total Protein 8.1 Albumin 4.6 Globulin 3.5 Albumin/Globulin Ratio 1.3 Triglycerides Cholesterol LDL Cholesterol, Calc HDL Cholesterol Lipase 109 TSH Free T4 COVID-19 PCR 06/03/20 06/03/20 06/03/20 00:04 03:13 07:16 WBC RBC Hgb Hct MCV MCH MCHC RDW Plt Count Neut % (Auto) Lymph % (Auto) Union % (Auto) Eos % (Auto) Baso % (Auto) Neut # (Auto) Lymph # (Auto) Union # (Auto) Eos # (Auto) Baso # (Auto) PT INR D-Dimer Sodium 139 Potassium 3.8 Chloride 107 Carbon Dioxide 27 BUN 18 H Creatinine 0.69 Estimated GFR > 60.0 BUN/Creatinine Ratio 26.1 H Glucose 114 H Hemoglobin A1c Calcium 8.9 Magnesium 2.2 Total Bilirubin AST ALT Alkaline Phosphatase Total Creatine Kinase CK-MB (CK-2) CK-MB (CK-2) Rel Index Troponin I < 0.012 < 0.012 NT-Pro-B Natriuret Pep Total Protein Albumin Globulin Albumin/Globulin Ratio Triglycerides 206 H Cholesterol 157 LDL Cholesterol, Calc 88 HDL Cholesterol 28 L Lipase TSH Free T4 COVID-19 PCR Negative 06/03/20 06/03/20 07:16 07:16 WBC RBC Hgb Hct MCV MCH MCHC RDW Plt Count Neut % (Auto) Lymph % (Auto) Union % (Auto) Eos % (Auto) Baso % (Auto) Neut # (Auto) Lymph # (Auto) Union # (Auto) Eos # (Auto) Baso # (Auto) PT INR D-Dimer Sodium Potassium Chloride Carbon Dioxide BUN Creatinine Estimated GFR BUN/Creatinine Ratio Glucose Hemoglobin A1c 5.6 Calcium Magnesium Total Bilirubin AST ALT Alkaline Phosphatase Total Creatine Kinase CK-MB (CK-2) CK-MB (CK-2) Rel Index Troponin I NT-Pro-B Natriuret Pep Total Protein Albumin Globulin Albumin/Globulin Ratio Triglycerides Cholesterol LDL Cholesterol, Calc HDL Cholesterol Lipase TSH 11.0 H Free T4 1.07 COVID-19 PCR [facility] Medical History Excessive daytime sleepiness Exercise-induced asthma Hypertension Hypothyroidism Obesity Obstructive sleep apnea syndrome Primary insomnia Snoring Family History (Updated 06/03/20 @ 04:24 by DINORAH Shepherd) Father Myocardial infarction Mother Cancer Brother Atrial fibrillation Sister Atrial fibrillation Myocardial infarction Social History marital status: household members: spouse lives independently: Yes caregiver/support person: No education level: college occupational status: employed ( [employer]) travel history: over 6 months ago Smoking Status: Former smoker alcohol intake: current Discharge Plan Discharge Plan Patient Disposition: Home Provider Discharge Comment: You were admitted to the hospital with chest pain. Your stress test was deemed low risk for heart disease. Your blood pressure was high and your carvedilol will be increased. Follow up with your primary care provider for another blood pressure check and further medication titration later this week if possible. I also would recommend a pulmonary function test to check for lung disease. Discharge orders & Medications Prescriptions: New carvedilol 12.5 mg tablet 12.5 mg PO BID 30 Days Qty: 60 RF: 0 Continued lisinopril 20 MG tablet 40 mg PO QDAY Qty: 0 RF: 0 fexofenadine [Sherry Allergy] 180 mg tablet 180 mg PO QDAY Qty: 0 RF: 0 levothyroxine [Synthroid] 125 MCG tablet 0.125 mg PO QAM Qty: 0 RF: 0 fluticasone propionate [Flonase Allergy Relief] 9.9 ML spray,suspension 1 spray Intranasal QDAY Qty: 0 RF: 0 esomeprazole magnesium [Nexium] 40 MG capsule,delayed release(DR/EC) 40 mg PO QDAY Qty: 0 RF: 0 hydrocodone-acetaminophen [[place]hertz] 5 MG/325 MG tablet 1 tab PO Q6HP PRNQty: 10 RF: 0 spironolactone 25 mg tablet See Protocol mg PO BEDTIME RF: 0 trazodone 50 mg tablet 50 mg PO DAILY RF: 0 Discontinued carvedilol 6.25 mg tablet 6.25 mg PO BID Qty: 60 RF: 0 chlorthalidone 25 mg tablet 25 mg PO DAILY Qty: 30 RF: 0 No Action (DME) Resmed Airsense CPAP Qty: 1 RF: 0 Follow up/Referrals: Alejandra Barakat MD [Primary Care Provider] - Diet/Activity/Treatments Diet: Diet as Tolerated and Low-sodium Activity: As tolerated Discharge Data Primary Care Provider: Alejandra Barakat Attending Provider: Delfin Piña
--- NOTE | 2020-06-03 17:15 | CM.DANOTE ---
DCP/Assessment: Reviewed chart. Patient is a 64yr old female admitted to [facility] with [facility] pain. PCP listed is Alejandra Barakat. Primary payor is 1) [employer]. Met with patient and spouse at bedside. Patient reports completely I in all ADL's. Patient active and works full-time. P: Home when stable. 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 Yes History Provided By Patient,Medical Record Prior Living Arrangements House Household Members spouse Type of transporation used prior to Drives own vehicle admit Independent with ADL's Yes Is patient alert and oriented? Yes Caregiver for Another No Barriers to Discharge No Discharge Plan Home Transportation Arrangement Family to provide transport. Referrals Initiated None needed Whiteboard Updated in Patient Room with Yes name and ext. # of Commercial Light Fixture Assembler Review Status In Process Next Review Type Continued Stay Review
--- NOTE | 2020-06-03 17:39 | DI.NM.S_ITS ---
DATE OF SERVICE: 06/03/2020 PROCEDURE: Exercise perfusion study. DATE OF STUDY: 06/03/2020. INDICATIONS: Chest pain with underlying hypertension. RADIOPHARMACEUTICAL: 25.0 millicurie technetium-99m Myoview IV was injected at stress. Please note this is a exercise stress perfusion study only. CARDIAC STRESS: The patient underwent exercise perfusion study under the supervision of an attending staff. She walked on Von protocol for 6 minutes and achieved 89 percent of target heart rate with normal blood pressure response. The patient achieved 7 METS of workload. Functional aerobic impairment positive 7%. She felt fatigued. At about 5 minutes and 19 seconds during exercise, patient felt chest tightness, which got resolved within a few minutes in recovery. Baseline rhythm was sinus with some nonspecific ST/T changes. During stress, no convincing ischemic changes. Patient may have some nonspecific ST/T changes. No significant arrhythmias seen. RAW DATA: Large breast shadow was seen. GATED STUDY: Stress LV ejection fraction 85% without any obvious wall motion abnormalities. Lung/heart ratio 0.45 which is borderline. LV stress end- diastolic volume 87 mL. MYOCARDIAL PERFUSION SCAN: Stress supine and stress prone images revealed some apical thinning, otherwise normal myocardial perfusion. CONCLUSION: I will call this study likely a normal myocardial perfusion study without any convincing ischemia or infarction on perfusion scan. Large breast shadow was seen during raw images. Overall preserved left ventricular function. Functional aerobic impairment positive 7%. No convincing ischemic changes. No significant arrhythmias. The patient has chest tightness at peak exercise, which got resolved during recovery. As far as perfusion scan is concerned, this is a low risk perfusion scan. Correlate clinically. Mery Kimble - YARA/holly/miki doc#: [id number]/job#: [id number] dd: 06/03/2020 16:42:00 dt: 06/03/2020 17:26:00 DICTATING MD/COPIES TO: Paulette Gardner MD COPIES MNE: SAHIL;
--- NOTE | 2020-06-03 18:24 | PC.NURSE ---
SHIFT Report received 1530, care assumed. A&Ox4. VSS. Discharge plan and orders received. Tele dc'd, pt dressed, IV dc'd. Discharge instructions given. Out by wheelchair with PERSONAL LINES ACCOUNT MANAGER to private vehicle at 1803.
--- NOTE | 2020-06-05 15:49 | PC.NURSE ---
Late Entry; NS infusion initiated 06/03 at 02:42, stopped per d/c order, at 11:52.
== END 2020-06-03 18:03 | disposition home or self-care (01) ==
LOC: ED 06-03 01:08 → AC 06-03 01:09
PROVIDERS: Admitting Provider Nurse Practitioner Adult Health; Emergency Provider Emergency Medicine; PCP Internal Medicine; Visit Provider Nurse Practitioner Adult Health
DX: I16.0 Hypertensive urgency (principal); I10 Essential (primary) hypertension; K21.9 Gastro-esophageal reflux disease without esophagitis; J45.990 Exercise induced bronchospasm; E03.9 Hypothyroidism, unspecified; G47.33 Obstructive sleep apnea (adult) (pediatric); E66.9 Obesity, unspecified; Z11.59 Encounter for screening for other viral diseases
CPT/HCPCS: 36415; 71045; 78451; 80048; 80053; 80061; 82550; 83036; 83690; 83735; 83880; 84439; 84443; 84484; 85025; 85379; 85610; 87635; 93005; 93010; 93017; 93306; 94762; 96361; 96372; 96374; 99282; 99284; G0378; A9502; C9113; J1650

== ENCOUNTER 2020-09-22 09:00 | Outpatient (RCR) | payer OTHER, SELFPAY ==
[2020-06-03 01:38] VITALS: BMI 33.3
--- NOTE | 2020-07-07 16:49 | PT.OIE ---
Current Diagnoses Pain in unspecified wrist (07/07/20) Pain in right hand (07/07/20) Strain of intrinsic muscle, fascia and tendon of right thumb at wrist and hand level, initial encounter (07/07/20) Past Medical History (Last Reviewed 07/04/20 @ 20:49 by DINORAH Hurley) Excessive daytime sleepiness Exercise-induced asthma Hypertension Hypothyroidism Obesity Obstructive sleep apnea syndrome Primary insomnia Snoring Visit Care Team Role Provider Type Alejandra Barakat MD Attending Provider Non-Staff Primary Care Provider Referring Provider Specialty: Internal Medicine Address: [address] [place] [address], 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 Hospitalized May 2020 for HBP, now controlled. 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 Saw a couple weeks after returning and was given exercises that made it worse. Was given a R thumb splint at night. States it has helped. Prior Treatments and Tests Nighttime thumb splint. 2 yrs ago treatment for tendonitis of R elbow with possibly damage to Biceps. Treatment Goals Patient/Caregiver Goals Pt goal is to get exercises that she can do on her own mostly because of her job and to become painfree. Prior Functional Status Baseline Function- ADL's Independent Baseline Function- Mobility Independent Baseline Function- Work/School No limitations with performing work duties. Baseline Function- Recreation/Hobbies Row, ex @ gym (high intensity) Current Functional Impairments (Reported) Functional Limitations- ADL's Drives with mostly L hand and keeps R hand down resting. 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 Retiring with last day, 08/15/2020 Functional Limitations- Recreation/ Gym is closed. Hobbies Personal Factors Other Personal Factors That May Effect Skin CA Therapy/Recovery PT-OP-C Subjective Start: 07/04/20 19:08 Freq: Status: Active Protocol: Document 07/07/20 08:17 LRN (Rec: 07/07/20 09:04 LRN [id number]) Patient Questionnaires Quick Dash- Upper Extremity Quick Dash UE Score 43.18 Quick Dash UE Impairment 40 to 59% Impaired (Score 40- 59) OP-PT Pain Assessment Location Right Medial Hand Pain Location Details Around R thumb (MCP joint) Intensity 5 Scale Used Numeric (0 - 10) Description Aching Description- Other Lifting something has sharp pain. Frequency Constant Radiating Location Radiates up medial arm to R shoulder Pain Alleviating Factors Cold,Heat,Medication Other Pain Alleviating Factors Tyelenol & aspercreme PT-OP-F Manual Assessment Start: 07/04/20 19:08 Freq: Status: Active Protocol: Document 07/07/20 08:17 LRN (Rec: 07/07/20 10:25 LRN [id number]) Manual Assessments Soft Tissue Assessment Soft Tissue Mobility Assessment ......Tender R hand with AP & PA glides at CMC joint and at MCP/trapezium and trapezium/ trapezoid, and to lesser extent trapezoid/capitate joints. Scaphoid joints with trapezium & trapezoid mildly tender with PA glides. R hand ADD Policus muscle weakness and visible atrophy. PT-OP-H Neuro Start: 07/04/20 19:08 Freq: Status: Active Protocol: Document 07/07/20 08:17 LRN (Rec: 07/07/20 09:04 LRN [id number]) Sensation Evaluation Comments Summary Comments Driving or exercising on Eliptical has numbness of R hand. Tingling after a while numb. PT-OP-J Posture/Palpation/Skin Start: 07/04/20 19:08 Freq: Status: Active Protocol: Document 07/07/20 08:17 LRN (Rec: 07/07/20 09:04 LRN [id number]) Posture Evaluation Comments Posture Comments Forward rounded shoulders. R thumb atrophy at 1st interosseous. Palpation Assessment Location R hand Palpation Location Snuff Box Palpation Findings Tenderness Palpation Details Extreme tenderness at tendons of anatomical snuff box of R hand. Tenderness of carpel bones closest to CMC joint. PT-OP-K Range of Motion Start: 07/04/20 19:08 Freq: Status: Active Protocol: Document 07/07/20 08:17 LRN (Rec: 07/07/20 09:04 LRN [id number]) Elbow/Forearm Range of Motion Elbow/Forearm Right Active Elbow/Forearm ROM WFL Yes Left Active Elbow/Forearm ROM WFL Yes Wrist Goniometric Range of Motion Wrist Right Wrist ROM WFL No Flexion Active (degrees) 60 Extension Active (degrees) 50 Ulnar Deviation Active (degrees) 29 Radial Deviation Active (degrees) 15 Left Wrist ROM WFL Yes Flexion Active (degrees) 64 Extension Active (degrees) 65 Ulnar Deviation Active (degrees) 50 Radial Deviation Active (degrees) 38 PT-OP-L Special Tests Start: 07/04/20 19:08 Freq: Status: Active Protocol: Document 07/07/20 08:17 LRN (Rec: 07/07/20 09:04 LRN [id number]) Special Tests Wrist/Hand Special Tests Lateral Epicondylitis Extended Test Results - Comments Pain at R wrist, not elbow Kay's Test Results + Comments Indicates possible de quervain 's tenosynovitis PT-OP-M Strength Start: 07/04/20 19:08 Freq: Status: Active Protocol: Document 07/07/20 08:17 LRN (Rec: 07/07/20 09:04 LRN [id number]) Shoulder Strength Shoulder Manual Muscle Testing Right Comments Generally 5/5 with pain in R UE. Elbow/Forearm Strength Elbow and Forearm Manual Muscle Testing Left Comments Generally 5/5 Right Comments Generally 5/5 with pain in R UE. Wrist Strength Wrist Manual Muscle Testing Right Flexion (C7) 3+ Fair+ Extension (C6) 3+ Fair+ Ulnar Deviation 5 Normal Radial Deviation 4 Good Left Comments Generally 5/5 Finger/Thumb Strength Finger Manual Muscle Testing Right Thumb Flexion (fingers C8) 5 Normal Extension (thumb C8) 3 Fair Adduction 3 Fair Abduction (fingers T1) 5 Normal Hand Field Radio Technician/Pinch Strength Hand Dominance Hand Dominance Right Hand Strength Left Field Radio Technician (lbs) 31 Comments 3 trials (lbs): 30, 35, 30 Right Field Radio Technician (lbs) 20 Comments 3 trials (lbs): 20, 20, 20 PT-OP-Q Treatments Start: 07/04/20 19:08 Freq: Status: Active Protocol: Document 07/07/20 08:17 LRN (Rec: 07/07/20 10:25 LRN [id number]) Self-Care/Home Management Treatment Education Patient Education Home Exercise Program,Pain Management Other Education Discussed results of evaluation and scheduling for plan of care. Pt was not able to come at opening time for another visit this week; therefore started at 1x this week. Pt is open to more visits per week to help eliminate the pain. Activities Self-Care/Home Management Activities Instructed pt in self care use of cryotherapy at home to R wrist. Discussed use of thumb splint during the day as well as at nighttime. Instructed pt in self care of thumb flex gentle stretch with progression to addition of wrist UD if able to do thumb flex stretch without pain. PT-OP-T Assessment and Plan Start: 07/04/20 19:08 Freq: Status: Active Protocol: Document 07/07/20 08:17 LRN (Rec: 07/07/20 09:04 LRN [id number]) Physical Therapy Assessment Rehab Potential Rehabilitation Potential Excellent Evaluation Complexity Number of Personal Factors/Comorbidities 1-2 Number of Body Systems Impaired 4 or More Clinical Presentation at Evaluation Stable Impairments Impairments Activity Tolerance,Edema,Pain, Posture,ROM,Sensation,Soft Tissue Mobility,Strength Goals Five Impairment Decreased function per UE QuickDASH score 43.18 (40<60% impairment) Halfway Goal (LTG) Improve function per UE QuickDASH score of no more than 39. LTG Duration 10/05/20 Four Impairment Decreased R hand strength (20# right, 31# left) Short Term Goal (STG) Improve R dominant hand occupational health technician strength by 5#'s. STG Duration 09/01/20 Halfway Goal (LTG) Symmetrical occupational health technician strength without R wrist pain. LTG Duration 10/05/20 Three Impairment Decreased R wrist mobility Short Term Goal (STG) Improve mobility. STG Duration 08/25/20 Halfway Goal (LTG) Normal R wrist mobility equal to the L (Initial: ext: 50 deg's R, 65 deg's L; flex: 60 deg's R, 64 deg's L, UD: 29 deg's R, 50 deg's L, RD: 15 deg's R, 38 deg's L) LTG Duration 10/05/20 Two Impairment Pt not able to write due to R wrist/thumb pain Medical Sales Representative Goal (LTG) Pt will be able to hold a pen and write without pain. LTG Duration 10/05/20 One Impairment Lacks appropriate self care HEP Short Term Goal (STG) Pt started on initial HEP of stretches and self care. STG Duration 07/18/20 Halfway Goal (LTG) Pt educated in a HEP for strengthening and prevention of reoccurance of symptoms. LTG Duration 10/05/20 Assessment Summary Assessment Pt presents with + Finklestein Test indicating possible de quervain's tenosynovitis. Pt treatment will focus on decreasing inflammatioin and pain followed by progressive slow increase in strength for painfree strengthening. The pt will benefit from skilled physical therapy for modalities to reduce inflammation and pt education on proper R wrist/thumb care and slow progressive strengthening on mostly a home program at pt's request. If she is not able to manage at 1x/week then we will try increasing to 2x/week in order to decrease pain and inflammation as quickly as possible. Physical Therapy Plan Frequency and Duration Frequency of Treatment 1-2x/week Plan of Care Start Date 07/07/20 Plan of Care End Date 10/05/20 Therapeutic Interventions Therapeutic Interventions Home Exercise Program,Joint Mobilizations,Manual Therapy, Patient/Caregiver Education, Self-Care/Home Management,Soft Tissue Mobilization,Taping, Therapeutic Exercises Modalities Cold Pack/Ice Massage,Hot Packs,Ultrasound Other Therapeutic Interventions Iontophoresis with 4mg/ml Dexamethasone w/Sodium Phosphate. Next Visit Focus/Plan Next Note Type Treatment Note Next Visit Plan Issue HEP: R thumb stretch ( Thumb flexor carpi radialis longus & brevis, Kay stretch), R wrist stretches ( flex, ext, RD, UD, supination) , AB/AD strengthening of fingers and thumb. Educate pt in modaility use at home. Educate pt in contrast baths. JMT of carpels (Radial side: Trapezium, Trapezoid). K-tape for inflammation and muscle relaxation, Ultrasound and Iontophoresis, When pain managed, start strengthening of intrinsics, AD's AB's, wrist.
--- NOTE | 2020-07-07 16:49 | PT.OPPOC ---
Physical, Occupational & Speech Therapy At [facility] Current Diagnoses Pain in unspecified wrist (07/07/20) Pain in right hand (07/07/20) Strain of intrinsic muscle, fascia and tendon of right thumb at wrist and hand level, initial encounter (07/07/20) Visit Care Team Role Provider Type Alejandra Barakat MD Attending Provider Non-Staff Primary Care Provider Referring Provider Specialty: Internal Medicine Address: [address] [place] [address], [id number] Email: Plan Of Care PT-OP-T Assessment and Plan Start: 07/04/20 19:08 Freq: Status: Active Protocol: Document 07/07/20 08:17 LRN (Rec: 07/07/20 09:04 LRN [id number]) Physical Therapy Assessment Rehab Potential Rehabilitation Potential Excellent Evaluation Complexity Number of Personal Factors/Comorbidities 1-2 Number of Body Systems Impaired 4 or More Clinical Presentation at Evaluation Stable Impairments Impairments Activity Tolerance,Edema,Pain, Posture,ROM,Sensation,Soft Tissue Mobility,Strength Goals Five Impairment Decreased function per UE QuickDASH score 43.18 (40<60% impairment) Ramp Boss Goal (LTG) Improve function per UE QuickDASH score of no more than 39. LTG Duration 10/05/20 Four Impairment Decreased R hand strength (20# right, 31# left) Short Term Goal (STG) Improve R dominant hand traffic circuit engineer strength by 5#'s. STG Duration 09/01/20 Ramp Boss Goal (LTG) Symmetrical traffic circuit engineer strength without R wrist pain. LTG Duration 10/05/20 Three Impairment Decreased R wrist mobility Short Term Goal (STG) Improve mobility. STG Duration 08/25/20 Ramp Boss Goal (LTG) Normal R wrist mobility equal to the L (Initial: ext: 50 deg's R, 65 deg's L; flex: 60 deg's R, 64 deg's L, UD: 29 deg's R, 50 deg's L, RD: 15 deg's R, 38 deg's L) LTG Duration 10/05/20 Two Impairment Pt not able to write due to R wrist/thumb pain Ramp Boss Goal (LTG) Pt will be able to hold a pen and write without pain. LTG Duration 10/05/20 One Impairment Lacks appropriate self care HEP Short Term Goal (STG) Pt started on initial HEP of stretches and self care. STG Duration 07/18/20 Prison Goal (LTG) Pt educated in a HEP for strengthening and prevention of reoccurance of symptoms. LTG Duration 10/05/20 Assessment Summary Assessment Pt presents with + Finklestein Test indicating possible de quervain's tenosynovitis. Pt treatment will focus on decreasing inflammatioin and pain followed by progressive slow increase in strength for painfree strengthening. The pt will benefit from skilled physical therapy for modalities to reduce inflammation and pt education on proper R wrist/thumb care and slow progressive strengthening on mostly a home program at pt's request. If she is not able to manage at 1x/week then we will try increasing to 2x/week in order to decrease pain and inflammation as quickly as possible. Physical Therapy Plan Frequency and Duration Frequency of Treatment 1-2x/week Plan of Care Start Date 07/07/20 Plan of Care End Date 10/05/20 Therapeutic Interventions Therapeutic Interventions Home Exercise Program,Joint Mobilizations,Manual Therapy, Patient/Caregiver Education, Self-Care/Home Management,Soft Tissue Mobilization,Taping, Therapeutic Exercises Modalities Cold Pack/Ice Massage,Hot Packs,Ultrasound Other Therapeutic Interventions Iontophoresis with 4mg/ml Dexamethasone w/Sodium Phosphate. Next Visit Focus/Plan Next Note Type Treatment Note Next Visit Plan Issue HEP: R thumb stretch ( Thumb flexor carpi radialis longus & brevis, Kay stretch), R wrist stretches ( flex, ext, RD, UD, supination) , AB/AD strengthening of fingers and thumb. Educate pt in modaility use at home. Educate pt in contrast baths. JMT of carpels (Radial side: Trapezium, Trapezoid). K-tape for inflammation and muscle relaxation, Ultrasound and Iontophoresis, When pain managed, start strengthening of intrinsics, AD's AB's, wrist. Plan of Care Dates Plan of Care Start Date 07/07/20 Plan of Care End Date 10/05/20 Electronically Signed by: Aleyda Alvarez, PT 07/08/20 4051 Please Sign and Return: I have reviewed this Plan of Care and certify that the skilled therapy services above are required to meet the patient?s needs. Physician Signature Date Printed Name and Credentials Clinical Instructor Signature Printed Name and Credentials
--- NOTE | 2020-07-14 17:15 | PT.OTN ---
Current Diagnoses Pain in unspecified wrist (07/14/20) Pain in right hand (07/14/20) Strain of intrinsic muscle, fascia and tendon of right thumb at wrist and hand level, initial encounter (07/14/20) Physical Therapy Treatment Note PT-OP-A Visit Information Start: 07/04/20 19:08 Freq: Status: Active Protocol: Document 07/14/20 08:15 LRN (Rec: 07/14/20 09:03 LRN [id number]) Out-Patient Physical Therapy Visit Information Visit Information Visit Type Treatment Note Visit Start Time 08:15 Visit Stop Time 09:00 Total Visit Minutes 45 Visit Number 2 Evaluation Information Evaluation Date 07/07/20 Precautions Precautions 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 Hospitalized May 2020 for HBP, now controlled. 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 Saw a couple weeks after returning and was given exercises that made it worse. Was given a R thumb splint at night. States it has helped. Prior Treatments and Tests Nighttime thumb splint. 2 yrs ago treatment for tendonitis of R elbow with possibly damage to Biceps. Treatment Goals Patient/Caregiver Goals Pt goal is to get exercises that she can do on her own mostly because of her job and to become painfree. Prior Functional Status Baseline Function- ADL's Independent Baseline Function- Mobility Independent Baseline Function- Work/School No limitations with performing work duties. Baseline Function- Recreation/Hobbies Row, ex @ gym (high intensity) Current Functional Impairments (Reported) Functional Limitations- ADL's Drives with mostly L hand and keeps R hand down resting. 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 Retiring with last day, 08/15/2020 Functional Limitations- Recreation/ Gym is closed. Hobbies Personal Factors Other Personal Factors That May Effect Skin CA Therapy/Recovery PT-OP-C Subjective Start: 07/04/20 19:08 Freq: Status: Active Protocol: Document 07/14/20 08:15 LRN (Rec: 07/14/20 09:03 LRN [id number]) OP-PT Subjective Patient Comments Patient Comments Still hurts quite a bit but it helps to have the R thumb/ wrist splint on. Must take the splint off when having to write. Pain is down a little bit. Patient Questionnaires Quick Dash- Upper Extremity Quick Dash UE Score 43.18 Quick Dash UE Impairment 40 to 59% Impaired (Score 40- 59) PT-OP-F Manual Assessment Start: 07/04/20 19:08 Freq: Status: Active Protocol: Document 07/07/20 08:17 LRN (Rec: 07/07/20 10:25 LRN [id number]) Manual Assessments Soft Tissue Assessment Soft Tissue Mobility Assessment ......Tender R hand with AP & PA glides at CMC joint and at MCP/trapezium and trapezium/ trapezoid, and to lesser extent trapezoid/capitate joints. Scaphoid joints with trapezium & trapezoid mildly tender with PA glides. R hand ADD Policus muscle weakness and visible atrophy. PT-OP-H Neuro Start: 07/04/20 19:08 Freq: Status: Active Protocol: Document 07/07/20 08:17 LRN (Rec: 07/07/20 09:04 LRN [id number]) Sensation Evaluation Comments Summary Comments Driving or exercising on Eliptical has numbness of R hand. Tingling after a while numb. PT-OP-J Posture/Palpation/Skin Start: 07/04/20 19:08 Freq: Status: Active Protocol: Document 07/07/20 08:17 LRN (Rec: 07/07/20 09:04 LRN [id number]) Posture Evaluation Comments Posture Comments Forward rounded shoulders. R thumb atrophy at 1st interosseous. Palpation Assessment Location R hand Palpation Location Snuff Box Palpation Findings Tenderness Palpation Details Extreme tenderness at tendons of anatomical snuff box of R hand. Tenderness of carpel bones closest to CMC joint. PT-OP-K Range of Motion Start: 07/04/20 19:08 Freq: Status: Active Protocol: Document 07/07/20 08:17 LRN (Rec: 07/07/20 09:04 LRN [id number]) Elbow/Forearm Range of Motion Elbow/Forearm Right Active Elbow/Forearm ROM WFL Yes Left Active Elbow/Forearm ROM WFL Yes Wrist Goniometric Range of Motion Wrist Right Wrist ROM WFL No Flexion Active (degrees) 60 Extension Active (degrees) 50 Ulnar Deviation Active (degrees) 29 Radial Deviation Active (degrees) 15 Left Wrist ROM WFL Yes Flexion Active (degrees) 64 Extension Active (degrees) 65 Ulnar Deviation Active (degrees) 50 Radial Deviation Active (degrees) 38 PT-OP-L Special Tests Start: 07/04/20 19:08 Freq: Status: Active Protocol: Document 07/07/20 08:17 LRN (Rec: 07/07/20 09:04 LRN [id number]) Special Tests Wrist/Hand Special Tests Lateral Epicondylitis Extended Test Results - Comments Pain at R wrist, not elbow Kay's Test Results + Comments Indicates possible de quervain 's tenosynovitis PT-OP-M Strength Start: 07/04/20 19:08 Freq: Status: Active Protocol: Document 07/07/20 08:17 LRN (Rec: 07/07/20 09:04 LRN [id number]) Shoulder Strength Shoulder Manual Muscle Testing Right Comments Generally 5/5 with pain in R UE. Elbow/Forearm Strength Elbow and Forearm Manual Muscle Testing Left Comments Generally 5/5 Right Comments Generally 5/5 with pain in R UE. Wrist Strength Wrist Manual Muscle Testing Right Flexion (C7) 3+ Fair+ Extension (C6) 3+ Fair+ Ulnar Deviation 5 Normal Radial Deviation 4 Good Left Comments Generally 5/5 Finger/Thumb Strength Finger Manual Muscle Testing Right Thumb Flexion (fingers C8) 5 Normal Extension (thumb C8) 3 Fair Adduction 3 Fair Abduction (fingers T1) 5 Normal Hand Registered Nurse/Pinch Strength Hand Dominance Hand Dominance Right Hand Strength Left Registered Nurse (lbs) 31 Comments 3 trials (lbs): 30, 35, 30 Right Registered Nurse (lbs) 20 Comments 3 trials (lbs): 20, 20, 20 PT-OP-Q Treatments Start: 07/04/20 19:08 Freq: Status: Active Protocol: Document 07/14/20 08:15 LRN (Rec: 07/14/20 09:03 LRN [id number]) Therapeutic Exercises Sitting Exercises Tendon Glides Sitting Exercise Name AROM intrinsics Side right Kay stretch Side right Reps/Minutes 4 Thumb passive flex stretch Sitting Exercise Name Wrist neutral, passive flex @ MCP & IP jt flex Side right Reps/Minutes 2', plus extra time Comments Extra time for max tolerance position for stretch Manual Therapy Treatment Soft Tissue Mobilization R thumb extensors Body Location R thumb extensors & AB Mobilization Type Strumming,Sustained Pressure Intensity/Depth Moderate Body Position Sitting Self-Care/Home Management Treatment Education Other Education Educated pt in how to write without using the thumb. Activities Self-Care/Home Management Activities Issued & reviewed HEP: Tendon Gliding ex of fingers (2-4) of table top glides, finger curls, fingers fisting. Started light movement of thumb from slight flex to shadow duck hold. Pt to do without pain. PT-OP-R Modalities Start: 07/04/20 19:08 Freq: Status: Active Protocol: Document 07/14/20 08:15 LRN (Rec: 07/14/20 09:03 LRN [id number]) Iontophoresis Treatment R wrist Treatment Medication Dexamethasone (-) Medication Dosage 4mg/mL Treatment Polarity Negative to Negative Active Electrode Placement Thumb ext/AB tendons/AD ms. Dispersive Electrode Placement Forearm PT-OP-T Assessment and Plan Start: 07/04/20 19:08 Freq: Status: Active Protocol: Document 07/14/20 08:15 LRN (Rec: 07/14/20 09:03 LRN [id number]) Physical Therapy Assessment Goals Five Impairment Decreased function per UE QuickDASH score 43.18 (40<60% impairment) Can Cleaner Goal (LTG) Improve function per UE QuickDASH score of no more than 39. 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 STG Duration 09/01/20 Can Cleaner Goal (LTG) Symmetrical airconditioning plant operator strength without R wrist pain. LTG Duration 10/05/20 Three Impairment Decreased R wrist mobility Short Term Goal (STG) Improve mobility. STG Duration 08/25/20 Senior Care Goal (LTG) Normal R wrist mobility equal to the L (Initial: ext: 50 deg's R, 65 deg's L; flex: 60 deg's R, 64 deg's L, UD: 29 deg's R, 50 deg's L, RD: 15 deg's R, 38 deg's L) LTG Duration 10/05/20 Two Impairment Pt not able to write due to R wrist/thumb pain Can Cleaner Goal (LTG) Pt will be able to hold a pen and write without pain. LTG Duration 10/05/20 One Impairment Lacks appropriate self care HEP Short Term Goal (STG) Pt started on initial HEP of stretches and self care. STG Duration 07/18/20 (07/14/20: Started tendon glides of fingers and slightly w/thumb) Senior Care Goal (LTG) Pt educated in a HEP for strengthening and prevention of reoccurance of symptoms. LTG Duration 10/05/20 Progress Towards Goals Progress Comments R wrist pain less with more use of thumb splint. Assessment Summary Assessment Pt's R hand/wrist pain has lessened with use of thumb splint wearing all day. She increases discomfort during her day when using her thumb to write. Suggestion and education to reduce usage of thumb when writing should be helpful. Pt tends to push her limits; therefore continued encouragement to not work into pain will be necessary. Physical Therapy Plan Frequency and Duration Frequency of Treatment 1-2x/week Plan of Care Start Date 07/07/20 Plan of Care End Date 10/05/20 Next Visit Focus/Plan Next Note Type Treatment Note Next Visit Plan Assess response to Iontophoresis. Issue HEP: R thumb stretch (Thumb flexor carpi radialis longus & brevis , Kay stretch), R wrist stretches (flex, ext, RD , UD, supination), AB/AD strengthening of fingers and thumb. Educate pt in modaility use at home. Issue contrast bath for self detention program. JMT of carpels (Radial side: Trapezium, Trapezoid). K-tape for inflammation and muscle relaxation, Ultrasound and Iontophoresis, When pain managed, start strengthening of intrinsics, AD's AB's, wrist.
--- NOTE | 2020-07-21 09:53 | PT.OTN ---
Current Diagnoses Pain in unspecified wrist (07/21/20) Pain in right hand (07/21/20) Strain of intrinsic muscle, fascia and tendon of right thumb at wrist and hand level, initial encounter (07/21/20) Physical Therapy Treatment Note PT-OP-A Visit Information Start: 07/04/20 19:08 Freq: Status: Active Protocol: Document 07/21/20 08:17 LRN (Rec: 07/21/20 09:06 LRN [id number]) Out-Patient Physical Therapy Visit Information Visit Information Visit Type Treatment Note Visit Start Time 08:17 Visit Stop Time 09:03 Total Visit Minutes 46 Visit Number 3 Evaluation Information Evaluation Date 07/07/20 Precautions Precautions 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 Hospitalized May 2020 for HBP, now controlled. 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 Saw a couple weeks after returning and was given exercises that made it worse. Was given a R thumb splint at night. States it has helped. Prior Treatments and Tests Nighttime thumb splint. 2 yrs ago treatment for tendonitis of R elbow with possibly damage to Biceps. Treatment Goals Patient/Caregiver Goals Pt goal is to get exercises that she can do on her own mostly because of her job and to become painfree. Prior Functional Status Baseline Function- ADL's Independent Baseline Function- Mobility Independent Baseline Function- Work/School No limitations with performing work duties. Baseline Function- Recreation/Hobbies Row, ex @ gym (high intensity) Current Functional Impairments (Reported) Functional Limitations- ADL's Drives with mostly L hand and keeps R hand down resting. 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 Hobbies Personal Factors Other Personal Factors That May Effect Skin CA Therapy/Recovery PT-OP-C Subjective Start: 07/04/20 19:08 Freq: Status: Active Protocol: Document 07/21/20 08:17 LRN (Rec: 07/21/20 09:06 LRN [id number]) OP-PT Subjective Patient Comments Patient Comments Patch helped a lot, took the pain away. States after removal of the patch the pain returned. States working makes the R wrist hurt again. Pt states she must do her job as she is retiring and her last day is 08/15/20. Pt agreeable to minimize treatments until after retiring. PT-OP-F Manual Assessment Start: 07/04/20 19:08 Freq: Status: Active Protocol: Document 07/07/20 08:17 LRN (Rec: 07/07/20 10:25 LRN [id number]) Manual Assessments Soft Tissue Assessment Soft Tissue Mobility Assessment ......Tender R hand with AP & PA glides at CMC joint and at MCP/trapezium and trapezium/ trapezoid, and to lesser extent trapezoid/capitate joints. Scaphoid joints with trapezium & trapezoid mildly tender with PA glides. R hand ADD Policus muscle weakness and visible atrophy. PT-OP-H Neuro Start: 07/04/20 19:08 Freq: Status: Active Protocol: Document 07/07/20 08:17 LRN (Rec: 07/07/20 09:04 LRN [id number]) Sensation Evaluation Comments Summary Comments Driving or exercising on Eliptical has numbness of R hand. Tingling after a while numb. PT-OP-J Posture/Palpation/Skin Start: 07/04/20 19:08 Freq: Status: Active Protocol: Document 07/07/20 08:17 LRN (Rec: 07/07/20 09:04 LRN [id number]) Posture Evaluation Comments Posture Comments Forward rounded shoulders. R thumb atrophy at 1st interosseous. Palpation Assessment Location R hand Palpation Location Snuff Box Palpation Findings Tenderness Palpation Details Extreme tenderness at tendons of anatomical snuff box of R hand. Tenderness of carpel bones closest to CMC joint. PT-OP-K Range of Motion Start: 07/04/20 19:08 Freq: Status: Active Protocol: Document 07/21/20 08:17 LRN (Rec: 07/21/20 09:06 LRN [id number]) Thumb Goniometric Range of Motion Thumb Right Thumb ROM WFL No MCP Flexion Passive (degrees) 70 IP Flexion Passive (degrees) 90 PT-OP-L Special Tests Start: 07/04/20 19:08 Freq: Status: Active Protocol: Document 07/07/20 08:17 LRN (Rec: 07/07/20 09:04 LR [id number]) Special Tests Wrist/Hand Special Tests Lateral Epicondylitis Extended Test Results - Comments Pain at R wrist, not elbow Kay's Test Results + Comments Indicates possible de quervain 's tenosynovitis PT-OP-M Strength Start: 07/04/20 19:08 Freq: Status: Active Protocol: Document 07/07/20 08:17 LRN (Rec: 07/07/20 09:04 [facility] [id number]) Shoulder Strength Shoulder Manual Muscle Testing Right Comments Generally 5/5 with pain in R UE. Elbow/Forearm Strength Elbow and Forearm Manual Muscle Testing Left Comments Generally 5/5 Right Comments Generally 5/5 with pain in R UE. Wrist Strength Wrist Manual Muscle Testing Right Flexion (C7) 3+ Fair+ Extension (C6) 3+ Fair+ Ulnar Deviation 5 Normal Radial Deviation 4 Good Left Comments Generally 5/5 Finger/Thumb Strength Finger Manual Muscle Testing Right Thumb Flexion (fingers C8) 5 Normal Extension (thumb C8) 3 Fair Adduction 3 Fair Abduction (fingers T1) 5 Normal Hand Credit Review Manager/Pinch Strength Hand Dominance Hand Dominance Right Hand Strength Left Credit Review Manager (lbs) 31 Comments 3 trials (lbs): 30, 35, 30 Right Credit Review Manager (lbs) 20 Comments 3 trials (lbs): 20, 20, 20 PT-OP-Q Treatments Start: 07/04/20 19:08 Freq: Status: Active Protocol: Document 07/21/20 08:17 LRN (Rec: 07/21/20 09:06 [facility] [id number]) Therapeutic Exercises Sitting Exercises Elbow Curls Sitting Exercise Name Elbow Curl Side right Resistance 2# Equipment Used db Reps/Minutes 10x 3 Comments Pt fatigued with each set Tricep Ext Sitting Exercise Name Overhead elbow ext Reps/Minutes 10x 3 Tendon Glides Sitting Exercise Name AROM intrinsics Side right Kay stretch Side right Reps/Minutes 4 Comments Low tolerance Thumb passive flex stretch Sitting Exercise Name Wrist neutral, passive flex @ MCP & IP jt flex Side right Reps/Minutes 4' Comments Extra time for max tolerance position for stretch & rest periods Manual Therapy Treatment Soft Tissue Mobilization R thumb extensors Body Location R thumb extensors & AB, AD, Flexors Mobilization Type Strumming,Sustained Pressure Intensity/Depth Moderate Body Position Sitting Self-Care/Home Management Treatment Education Patient Education Pain Management Other Education Educated pt in use of contrast bath method to reduce inflammation at hand. Discussed with pt importance of resting the thumb and discussed minimizing therapy visits until she is able to focus on her program (once she has retired). PT-OP-R Modalities Start: 07/04/20 19:08 Freq: Status: Active Protocol: Document 07/21/20 08:17 LRN (Rec: 07/21/20 09:06 LRN [id number]) Iontophoresis Treatment R wrist Treatment Medication Dexamethasone (-) Medication Dosage 4mg/mL Treatment Polarity Negative to Negative Active Electrode Placement Thumb ext/AB tendons/AD ms. Dispersive Electrode Placement Forearm PT-OP-T Assessment and Plan Start: 07/04/20 19:08 Freq: Status: Active Protocol: Document 07/21/20 08:17 LRN (Rec: 07/21/20 09:06 LRN [id number]) Physical Therapy Assessment Goals Five Impairment Decreased function per UE QuickDASH score 43.18 (40<60% impairment) Half-Way Goal (LTG) Improve function per UE QuickDASH score of no more than 39. 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 STG Duration 09/01/20 Half-Way Goal (LTG) Symmetrical automatic shirring machine operator strength without R wrist pain. LTG Duration 10/05/20 Three Impairment Decreased R wrist mobility Short Term Goal (STG) Improve mobility. STG Duration 08/25/20 Center Mgr Goal (LTG) Normal R wrist mobility equal to the L (Initial: ext: 50 deg's R, 65 deg's L; flex: 60 deg's R, 64 deg's L, UD: 29 deg's R, 50 deg's L, RD: 15 deg's R, 38 deg's L) LTG Duration 04/11/21 Two Impairment Pt not able to write due to R wrist/thumb pain Center Mgr Goal (LTG) Pt will be able to hold a pen and write without pain. LTG Duration 10/05/20 One Impairment Lacks appropriate self care HEP Short Term Goal (STG) Pt started on initial HEP of stretches and self care. STG Duration 07/18/20 (07/14/20: Started tendon glides of fingers and slightly w/thumb) Center Mgr Goal (LTG) Pt educated in a HEP for strengthening and prevention of reoccurance of symptoms. LTG Duration 10/05/20 Progress Towards Goals Progress Towards Goals Slow Progress due to Activity Tolerance Progress Comments Progress slow due to pt continued work requirements. Assessment Summary Assessment Pt had positive response to use of iontophoresis, but was negated by us of her hand while at work by the end of the day. 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 Physical Therapy Plan Frequency and Duration Frequency of Treatment 1-2x/week Plan of Care Start Date 07/07/20 Plan of Care End Date 10/05/20 Next Visit Focus/Plan Next Note Type Treatment Note Next Visit Plan Assess response to Iontophoresis. Monitor for cervical involvement. Issue HEP: R thumb stretch ( Thumb flexor carpi radialis longus & brevis, Kay stretch), R wrist stretches ( flex, ext, RD, UD, supination) , AB/AD strengthening of fingers. Educate & issue modality use at home (cryotherapy & contrast bath). JMT of carpels (Radial side: Trapezium, Trapezoid). K-tape for inflammation and muscle relaxation, Ultrasound and Iontophoresis. When pain managed, start strengthening of intrinsics, AD's AB's, wrist.
--- NOTE | 2020-07-28 16:20 | PT.OTN ---
Current Diagnoses Pain in unspecified wrist (07/28/20) Pain in right hand (07/28/20) Strain of intrinsic muscle, fascia and tendon of right thumb at wrist and hand level, initial encounter (07/28/20) Physical Therapy Treatment Note PT-OP-A Visit Information Start: 07/04/20 19:08 Freq: Status: Active Protocol: Document 07/28/20 15:02 LRN (Rec: 07/28/20 16:17 LRN [id number]) Out-Patient Physical Therapy Visit Information Visit Information Visit Type Treatment Note Visit Start Time 15:02 Visit Stop Time 15:51 Total Visit Minutes 49 Visit Number 4 Evaluation Information Evaluation Date 07/07/20 Precautions Precautions 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 Hospitalized May 2020 for HBP, now controlled. 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 Saw a couple weeks after returning and was given exercises that made it worse. Was given a R thumb splint at night. States it has helped. Prior Treatments and Tests Nighttime thumb splint. 2 yrs ago treatment for tendonitis of R elbow with possibly damage to Biceps. Treatment Goals Patient/Caregiver Goals Pt goal is to get exercises that she can do on her own mostly because of her job and to become painfree. Prior Functional Status Baseline Function- ADL's Independent Baseline Function- Mobility Independent Baseline Function- Work/School No limitations with performing work duties. Baseline Function- Recreation/Hobbies Row, ex @ gym (high intensity) Current Functional Impairments (Reported) Functional Limitations- ADL's Drives with mostly L hand and keeps R hand down resting. 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 Hobbies Personal Factors Other Personal Factors That May Effect Skin CA Therapy/Recovery PT-OP-C Subjective Start: 07/04/20 19:08 Freq: Status: Active Protocol: Document 07/28/20 15:02 LRN (Rec: 07/28/20 16:17 LRN [id number]) OP-PT Subjective Patient Comments Patient Comments States her thumb is sore, gets sore sometime from being in brace. States her thumb felt good after the last session for 3 days. Hurt on due to return to work, typing and writing makes her worse. PT-OP-F Manual Assessment Start: 07/04/20 19:08 Freq: Status: Active Protocol: Document 07/07/20 08:17 LRN (Rec: 07/07/20 10:25 LRN [id number]) Manual Assessments Soft Tissue Assessment Soft Tissue Mobility Assessment ......Tender R hand with AP & PA glides at CMC joint and at MCP/trapezium and trapezium/ trapezoid, and to lesser extent trapezoid/capitate joints. Scaphoid joints with trapezium & trapezoid mildly tender with PA glides. R hand ADD Policus muscle weakness and visible atrophy. PT-OP-H Neuro Start: 07/04/20 19:08 Freq: Status: Active Protocol: Document 07/07/20 08:17 LRN (Rec: 07/07/20 09:04 LRN [id number]) Sensation Evaluation Comments Summary Comments Driving or exercising on Eliptical has numbness of R hand. Tingling after a while numb. PT-OP-J Posture/Palpation/Skin Start: 07/04/20 19:08 Freq: Status: Active Protocol: Document 07/07/20 08:17 LRN (Rec: 07/07/20 09:04 LRN [id number]) Posture Evaluation Comments Posture Comments Forward rounded shoulders. R thumb atrophy at 1st interosseous. Palpation Assessment Location R hand Palpation Location Snuff Box Palpation Findings Tenderness Palpation Details Extreme tenderness at tendons of anatomical snuff box of R hand. Tenderness of carpel bones closest to CMC joint. PT-OP-K Range of Motion Start: 07/04/20 19:08 Freq: Status: Active Protocol: Document 07/21/20 08:17 LRN (Rec: 07/21/20 09:06 LRN [id number]) Thumb Goniometric Range of Motion Thumb Right Thumb ROM WFL No MCP Flexion Passive (degrees) 70 IP Flexion Passive (degrees) 90 PT-OP-L Special Tests Start: 07/04/20 19:08 Freq: Status: Active Protocol: Document 07/07/20 08:17 LRN (Rec: 07/07/20 09:04 LRN [id number]) Special Tests Wrist/Hand Special Tests Lateral Epicondylitis Extended Test Results - Comments Pain at R wrist, not elbow Kay's Test Results + Comments Indicates possible de quervain 's tenosynovitis PT-OP-M Strength Start: 07/04/20 19:08 Freq: Status: Active Protocol: Document 07/07/20 08:17 LRN (Rec: 07/07/20 09:04 LR [id number]) Shoulder Strength Shoulder Manual Muscle Testing Right Comments Generally 5/5 with pain in R UE. Elbow/Forearm Strength Elbow and Forearm Manual Muscle Testing Left Comments Generally 5/5 Right Comments Generally 5/5 with pain in R UE. Wrist Strength Wrist Manual Muscle Testing Right Flexion (C7) 3+ Fair+ Extension (C6) 3+ Fair+ Ulnar Deviation 5 Normal Radial Deviation 4 Good Left Comments Generally 5/5 Finger/Thumb Strength Finger Manual Muscle Testing Right Thumb Flexion (fingers C8) 5 Normal Extension (thumb C8) 3 Fair Adduction 3 Fair Abduction (fingers T1) 5 Normal Hand Sales Department Clerk/Pinch Strength Hand Dominance Hand Dominance Right Hand Strength Left Sales Department Clerk (lbs) 31 Comments 3 trials (lbs): 30, 35, 30 Right Sales Department Clerk (lbs) 20 Comments 3 trials (lbs): 20, 20, 20 PT-OP-Q Treatments Start: 07/04/20 19:08 Freq: Status: Active Protocol: Document 07/28/20 15:02 LRN (Rec: 07/28/20 16:17 LRN [id number]) Therapeutic Exercises Sitting Exercises Wrist stretch Sitting Exercise Name Flex, Ext Side right Pronation Sitting Exercise Name Active & resisted Side right Equipment Used Lev 2 TB Supination Sitting Exercise Name Stretch, active & resisted Side right Equipment Used Lev 2 TB Comments Resisted DC'd due to R lateral wrist pain Elbow Curls Sitting Exercise Name Elbow Curl - no docketing specialist w/thumb Side right Resistance 2# Equipment Used db Reps/Minutes 10x 3 Tricep Ext Sitting Exercise Name Overhead elbow ext - no docketing specialist w /thumb Side right Reps/Minutes 10x 3 Kay stretch Side right Reps/Minutes 3' Comments Low tolerance Thumb passive flex stretch Sitting Exercise Name Wrist neutral, passive flex @ MCP & IP jt flex Side right Reps/Minutes 4' Comments Extra time for max tolerance position for stretch & rest periods Manual Therapy Treatment Soft Tissue Mobilization R Wrist/forearm Body Location R posterior wrist/forearm Mobilization Type Myofascial Release,Strumming, Sustained Pressure Intensity/Depth Moderate Body Position Sitting R thumb extensors Body Location R thumb extensors & AB, AD, Flexors Mobilization Type Strumming,Sustained Pressure Intensity/Depth Moderate Body Position Sitting PT-OP-R Modalities Start: 07/04/20 19:08 Freq: Status: Active Protocol: Document 07/28/20 15:02 LRN (Rec: 07/28/20 16:17 LRN [id number]) Iontophoresis Treatment R wrist Treatment Medication Dexamethasone (-) Medication Dosage 4mg/mL Treatment Polarity Negative to Negative Active Electrode Placement Thumb ext/AB tendons/AD ms. Dispersive Electrode Placement Forearm Ultrasound Therapy Treatment R Thenar [place] Treatment Duration (minutes) 8 Patient Position Sitting Coupling Medium Ultrasound Gel Applicator Size (cm2) 2 Mode Setting Pulsed Duty Cycle 50% Intensity Setting (w/cm2) 1.0 Comments R AB & ext tendons area of Snuff Box. PT-OP-T Assessment and Plan Start: 07/04/20 19:08 Freq: Status: Active Protocol: Document 07/28/20 15:02 LRN (Rec: 07/28/20 16:17 LRN [id number]) Physical Therapy Assessment Goals Five Impairment Decreased function per UE QuickDASH score 43.18 (40<60% impairment) Automatic Paint Sprayer Operator Goal (LTG) Improve function per UE QuickDASH score of no more than 39. LTG Duration 10/05/20 Four Impairment Decreased R hand strength (20# right, 31# left) Short Term Goal (STG) Improve R dominant hand docketing specialist strength by 5#'s. STG Duration 09/01/20 Residential Goal (LTG) Symmetrical docketing specialist strength without R wrist pain. LTG Duration 10/05/20 Three Impairment Decreased R wrist mobility Short Term Goal (STG) Improve mobility. STG Duration 08/25/20 Residential Goal (LTG) Normal R wrist mobility equal to the L (Initial: ext: 50 deg's R, 65 deg's L; flex: 60 deg's R, 64 deg's L, UD: 29 deg's R, 50 deg's L, RD: 15 deg's R, 38 deg's L) LTG Duration 10/05/20 Two Impairment Pt not able to write due to R wrist/thumb pain Residential Goal (LTG) Pt will be able to hold a pen and write without pain. LTG Duration 10/05/20 One Impairment Lacks appropriate self care HEP Short Term Goal (STG) Pt started on initial HEP of stretches and self care. STG Duration 07/18/20 (07/14/20: Started tendon glides of fingers and slightly w/thumb) Automatic Paint Sprayer Operator Goal (LTG) Pt educated in a HEP for strengthening and prevention of reoccurance of symptoms. LTG Duration 10/05/20 Assessment Summary Assessment + Finklestein Test; therefore possible De Quervain's tenosynovitis. 3 day relief of pain after last treatment ( ionto), but pain return with work activities. Pt able to tolerate tucking R thumb into fist without pain, but pain onset with UD. At end of therapy pt pain felt in wrist extensors. Physical Therapy Plan Frequency and Duration Frequency of Treatment 1-2x/week Plan of Care Start Date 07/07/20 Plan of Care End Date 10/05/20 Next Visit Focus/Plan Next Note Type Treatment Note Next Visit Plan Monitor for cervical involvement. Issue HEP: R thumb stretch ( Thumb flexor carpi radialis longus & brevis, Kay stretch), R wrist stretches ( flex, ext, RD, UD, supination) , AB/AD strengthening of fingers. Educate & issue modality use at home (cryotherapy & contrast bath). JMT of carpels (Radial side: Trapezium, Trapezoid). K-tape for inflammation and muscle relaxation, Ultrasound and Iontophoresis. When pain managed, start strengthening of intrinsics, AD's AB's, wrist.
--- NOTE | 2020-08-08 16:42 | PT.OTN ---
Current Diagnoses Pain in unspecified wrist (08/08/20) Pain in right hand (08/08/20) Strain of intrinsic muscle, fascia and tendon of right thumb at wrist and hand level, initial encounter (08/08/20) Physical Therapy Treatment Note PT-OP-A Visit Information Start: 07/04/20 19:08 Freq: Status: Active Protocol: Document 08/08/20 10:30 LRN (Rec: 08/08/20 11:11 LRN [id number]) Out-Patient Physical Therapy Visit Information Visit Information Visit Type Treatment Note Visit Start Time 10:30 Visit Stop Time 11:17 Total Visit Minutes 47 Visit Number 5 Evaluation Information Evaluation Date 07/07/20 Precautions Precautions 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 Hospitalized May 2020 for HBP, now controlled. 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 Saw a couple weeks after returning and was given exercises that made it worse. Was given a R thumb splint at night. States it has helped. Prior Treatments and Tests Nighttime thumb splint. 2 yrs ago treatment for tendonitis of R elbow with possibly damage to Biceps. Treatment Goals Patient/Caregiver Goals Pt goal is to get exercises that she can do on her own mostly because of her job and to become painfree. Prior Functional Status Baseline Function- ADL's Independent Baseline Function- Mobility Independent Baseline Function- Work/School No limitations with performing work duties. Baseline Function- Recreation/Hobbies Row, ex @ gym (high intensity) Current Functional Impairments (Reported) Functional Limitations- ADL's Drives with mostly L hand and keeps R hand down resting. 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 Retiring with last day, 08/15/2020 Functional Limitations- Recreation/ Gym is closed. Hobbies Personal Factors Other Personal Factors That May Effect Skin CA Therapy/Recovery PT-OP-C Subjective Start: 07/04/20 19:08 Freq: Status: Active Protocol: Document 08/08/20 10:30 LRN (Rec: 08/08/20 11:11 LRN [id number]) OP-PT Subjective Patient Comments Patient Comments Still sore in R wrist and medial foream. Hurts worse first in morning and worse if not wearing the brace at night . Last week of work next week . Will be having a relief next week. PT-OP-F Manual Assessment Start: 07/04/20 19:08 Freq: Status: Active Protocol: Document 07/07/20 08:17 LRN (Rec: 07/07/20 10:25 LRN [id number]) Manual Assessments Soft Tissue Assessment Soft Tissue Mobility Assessment ......Tender R hand with AP & PA glides at CMC joint and at MCP/trapezium and trapezium/ trapezoid, and to lesser extent trapezoid/capitate joints. Scaphoid joints with trapezium & trapezoid mildly tender with PA glides. R hand ADD Policus muscle weakness and visible atrophy. PT-OP-H Neuro Start: 07/04/20 19:08 Freq: Status: Active Protocol: Document 07/07/20 08:17 LRN (Rec: 07/07/20 09:04 LRN [id number]) Sensation Evaluation Comments Summary Comments Driving or exercising on Eliptical has numbness of R hand. Tingling after a while numb. PT-OP-J Posture/Palpation/Skin Start: 07/04/20 19:08 Freq: Status: Active Protocol: Document 07/07/20 08:17 LRN (Rec: 07/07/20 09:04 LRN [id number]) Posture Evaluation Comments Posture Comments Forward rounded shoulders. R thumb atrophy at 1st interosseous. Palpation Assessment Location R hand Palpation Location Snuff Box Palpation Findings Tenderness Palpation Details Extreme tenderness at tendons of anatomical snuff box of R hand. Tenderness of carpel bones closest to CMC joint. PT-OP-K Range of Motion Start: 07/04/20 19:08 Freq: Status: Active Protocol: Document 07/21/20 08:17 LRN (Rec: 07/21/20 09:06 LRN [id number]) Thumb Goniometric Range of Motion Thumb Right Thumb ROM WFL No MCP Flexion Passive (degrees) 70 IP Flexion Passive (degrees) 90 PT-OP-L Special Tests Start: 07/04/20 19:08 Freq: Status: Active Protocol: Document 07/07/20 08:17 LRN (Rec: 07/07/20 09:04 LRN [id number]) Special Tests Wrist/Hand Special Tests Lateral Epicondylitis Extended Test Results - Comments Pain at R wrist, not elbow Kay's Test Results + Comments Indicates possible de quervain 's tenosynovitis PT-OP-M Strength Start: 07/04/20 19:08 Freq: Status: Active Protocol: Document 07/07/20 08:17 LRN (Rec: 07/07/20 09:04 LRN [id number]) Shoulder Strength Shoulder Manual Muscle Testing Right Comments Generally 5/5 with pain in R UE. Elbow/Forearm Strength Elbow and Forearm Manual Muscle Testing Left Comments Generally 5/5 Right Comments Generally 5/5 with pain in R UE. Wrist Strength Wrist Manual Muscle Testing Right Flexion (C7) 3+ Fair+ Extension (C6) 3+ Fair+ Ulnar Deviation 5 Normal Radial Deviation 4 Good Left Comments Generally 5/5 Finger/Thumb Strength Finger Manual Muscle Testing Right Thumb Flexion (fingers C8) 5 Normal Extension (thumb C8) 3 Fair Adduction 3 Fair Abduction (fingers T1) 5 Normal Hand Control Systems Eng/Pinch Strength Hand Dominance Hand Dominance Right Hand Strength Left Control Systems Eng (lbs) 31 Comments 3 trials (lbs): 30, 35, 30 Right Control Systems Eng (lbs) 20 Comments 3 trials (lbs): 20, 20, 20 PT-OP-Q Treatments Start: 07/04/20 19:08 Freq: Status: Active Protocol: Document 08/08/20 10:30 LRN (Rec: 08/08/20 11:11 LRN [id number]) Manual Therapy Treatment Soft Tissue Mobilization Cervical Body Location Posterior neck & UT Mobilization Type Rolling,Strumming Intensity/Depth Moderate Body Position Prone Manual Traction Cervical Details Manual & Mechanical Traction Body Position Supine Reps/Duration 3' Self-Care/Home Management Treatment Education Other Education Discussed pt could try home C/ S traction on her spouse's home unit at lowest setting and 10-8# or minimal if reduction of pain occurs. PT-OP-R Modalities Start: 07/04/20 19:08 Freq: Status: Active Protocol: Document 08/08/20 10:30 LRN (Rec: 08/08/20 11:11 LRN [id number]) Spinal Traction Traction Treatment Cervical Method Static Patient Position Supine Force Applied (Pounds) 8 Duration of Treatment (Minutes) 8 Heating Pad Applied No Traction Treatment Comment Elimination of R shoulder, forearm, wrist and thumb pain. Ultrasound Therapy Treatment R posterior neck Treatment Duration (minutes) 8 Patient Position Prone Mode Setting Continuous Duty Cycle 100% Intensity Setting (w/cm2) 1.7 PT-OP-T Assessment and Plan Start: 07/04/20 19:08 Freq: Status: Active Protocol: Document 08/08/20 10:30 LRN (Rec: 08/08/20 11:11 LRN [id number]) Physical Therapy Assessment Goals Five Impairment Decreased function per UE QuickDASH score 43.18 (40<60% impairment) Salesperson Hosiery Goal (LTG) Improve function per UE QuickDASH score of no more than 39. LTG Duration 10/05/20 Four Impairment Decreased R hand strength (20# right, 31# left) Short Term Goal (STG) Improve R dominant hand language pathologist strength by 5#'s. STG Duration 09/01/20 Salesperson Hosiery Goal (LTG) Symmetrical language pathologist strength without R wrist pain. LTG Duration 10/05/20 Three Impairment Decreased R wrist mobility Short Term Goal (STG) Improve mobility. STG Duration 08/25/20 Residential Goal (LTG) Normal R wrist mobility equal to the L (Initial: ext: 50 deg's R, 65 deg's L; flex: 60 deg's R, 64 deg's L, UD: 29 deg's R, 50 deg's L, RD: 15 deg's R, 38 deg's L) LTG Duration 10/05/20 Two Impairment Pt not able to write due to R wrist/thumb pain Salesperson Hosiery Goal (LTG) Pt will be able to hold a pen and write without pain. LTG Duration 10/05/20 One Impairment Lacks appropriate self care HEP Short Term Goal (STG) Pt started on initial HEP of stretches and self care. STG Duration 07/18/20 (07/14/20: Started tendon glides of fingers and slightly w/thumb) Residential Goal (LTG) Pt educated in a HEP for strengthening and prevention of reoccurance of symptoms. LTG Duration 10/05/20 Assessment Summary Assessment Cervical traction resulted in reduction in R shoulder, forearm, wrist, Thenar [place] pain by 70% (pain decreased from 5/10 to 2/10). Tight R UT/posterior neck, L midback paraspinals and decreased thoracic mobility. Physical Therapy Plan Frequency and Duration Frequency of Treatment 1-2x/week Plan of Care Start Date 07/07/20 Plan of Care End Date 10/05/20 Next Visit Focus/Plan Next Note Type Treatment Note Next Visit Plan Assess for response to traction. Issue HEP: R thumb stretch ( Thumb flexor carpi radialis longus & brevis, Kay stretch), R wrist stretches ( flex, ext, RD, UD, supination) , AB/AD strengthening of fingers. Educate & issue modality use at home (cryotherapy & contrast bath). JMT of carpels (Radial side: Trapezium, Trapezoid). K-tape for inflammation and muscle relaxation, Ultrasound and Iontophoresis. When pain managed, start strengthening of intrinsics, AD's AB's, wrist.
--- NOTE | 2020-08-21 17:35 | PT.OTN ---
Current Diagnoses Pain in unspecified wrist (08/21/20) Radiculopathy, site unspecified (08/21/20) Pain in right hand (08/21/20) Strain of intrinsic muscle, fascia and tendon of right thumb at wrist and hand level, initial encounter (08/21/20) Physical Therapy Treatment Note PT-OP-A Visit Information Start: 07/04/20 19:08 Freq: Status: Active Protocol: Document 08/21/20 12:46 LRN (Rec: 08/21/20 13:29 LRN [id number]) Out-Patient Physical Therapy Visit Information Visit Information Visit Type Progress Note Visit Start Time 12:46 Visit Stop Time 13:27 Total Visit Minutes 41 Visit Number 6 Evaluation Information Evaluation Date 07/07/20 Precautions Precautions 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 Hospitalized May 2020 for HBP, now controlled. 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 Saw a couple weeks after returning and was given exercises that made it worse. Was given a R thumb splint at night. States it has helped. Prior Treatments and Tests Nighttime thumb splint. 2 yrs ago treatment for tendonitis of R elbow with possibly damage to Biceps. Treatment Goals Patient/Caregiver Goals Pt goal is to get exercises that she can do on her own mostly because of her job and to become painfree. Prior Functional Status Baseline Function- ADL's Independent Baseline Function- Mobility Independent Baseline Function- Work/School No limitations with performing work duties. Baseline Function- Recreation/Hobbies Row, ex @ gym (high intensity) Current Functional Impairments (Reported) Functional Limitations- ADL's Drives with mostly L hand and keeps R hand down resting. 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 Retiring with last day, 08/15/2020 Functional Limitations- Recreation/ Gym is closed. Hobbies Personal Factors Other Personal Factors That May Effect Skin CA Therapy/Recovery PT-OP-C Subjective Start: 07/04/20 19:08 Freq: Status: Active Protocol: Document 08/21/20 12:46 LRN (Rec: 08/21/20 13:29 LRN [id number]) OP-PT Subjective Patient Comments Patient Comments Was starting to feel better but misplaced wrist splint then it was worse again. PT-OP-F Manual Assessment Start: 07/04/20 19:08 Freq: Status: Active Protocol: Document 08/21/20 12:46 LRN (Rec: 08/21/20 17:35 LRN [id number]) Manual Assessments Soft Tissue Assessment Soft Tissue Mobility Assessment No palpable pain in R forearm or volar wrist after manual c. tx. No edema in R forearm is visible. R hand ADD Policus muscle weakness and visible atrophy. PT-OP-H Neuro Start: 07/04/20 19:08 Freq: Status: Active Protocol: Document 07/07/20 08:17 LRN (Rec: 07/07/20 09:04 LRN [id number]) Sensation Evaluation Comments Summary Comments Driving or exercising on [employer] has numbness of R hand. Tingling after a while numb. PT-OP-J Posture/Palpation/Skin Start: 07/04/20 19:08 Freq: Status: Active Protocol: Document 07/07/20 08:17 LRN (Rec: 07/07/20 09:04 LRN [id number]) Posture Evaluation Comments Posture Comments Forward rounded shoulders. R thumb atrophy at 1st interosseous. Palpation Assessment Location R hand Palpation Location Snuff Box Palpation Findings Tenderness Palpation Details Extreme tenderness at tendons of anatomical snuff box of R hand. Tenderness of carpel bones closest to CMC joint. PT-OP-K Range of Motion Start: 07/04/20 19:08 Freq: Status: Active Protocol: Document 07/21/20 08:17 LRN (Rec: 07/21/20 09:06 LRN [id number]) Thumb Goniometric Range of Motion Thumb Right Thumb ROM WFL No MCP Flexion Passive (degrees) 70 IP Flexion Passive (degrees) 90 PT-OP-L Special Tests Start: 07/04/20 19:08 Freq: Status: Active Protocol: Document 07/07/20 08:17 LRN (Rec: 07/07/20 09:04 LRN [id number]) Special Tests Wrist/Hand Special Tests Lateral Epicondylitis Extended Test Results - Comments Pain at R wrist, not elbow Kay's Test Results + Comments Indicates possible de quervain 's tenosynovitis PT-OP-M Strength Start: 07/04/20 19:08 Freq: Status: Active Protocol: Document 07/07/20 08:17 LRN (Rec: 07/07/20 09:04 LRN [id number]) Shoulder Strength Shoulder Manual Muscle Testing Right Comments Generally 5/5 with pain in R UE. Elbow/Forearm Strength Elbow and Forearm Manual Muscle Testing Left Comments Generally 5/5 Right Comments Generally 5/5 with pain in R UE. Wrist Strength Wrist Manual Muscle Testing Right Flexion (C7) 3+ Fair+ Extension (C6) 3+ Fair+ Ulnar Deviation 5 Normal Radial Deviation 4 Good Left Comments Generally 5/5 Finger/Thumb Strength Finger Manual Muscle Testing Right Thumb Flexion (fingers C8) 5 Normal Extension (thumb C8) 3 Fair Adduction 3 Fair Abduction (fingers T1) 5 Normal Hand [employer] Restaurant/Pinch Strength Hand Dominance Hand Dominance Right Hand Strength Left [employer] (lbs) 31 Comments 3 trials (lbs): 30, 35, 30 Right [employer] (lbs) 20 Comments 3 trials (lbs): 20, 20, 20 PT-OP-Q Treatments Start: 07/04/20 19:08 Freq: Status: Active Protocol: Document 08/21/20 12:46 LRN (Rec: 08/21/20 13:29 LRN [id number]) Therapeutic Exercises Supine Exercises Pec stretch Supine Exercise Name Pec Minor stretch Side right Cervical SB stretch Supine Exercise Name Cervical SB stretch Side bilateral Cervical retraction Supine Exercise Name Chin tuck Reps/Minutes 10 hold x 8 Comments Extra time needed for training of max positioning Manual Therapy Treatment Soft Tissue Mobilization Pec Minor Body Location R Pec Minor Mobilization Type Myofascial Release,Other Intensity/Depth Moderate Body Position Supine Comments OTHER: Contract/Relax (C/R) stretch Cervical Body Location Suboccipital Mobilization Type Sustained Pressure Intensity/Depth Moderate Body Position Supine Comments Suboccipital release R Wrist/forearm Body Location R posterior wrist/forearm Mobilization Type Strumming,Sustained Pressure Intensity/Depth Moderate Body Position Sitting Comments Relieved pain with c. tx R thumb extensors Body Location R thumb extensors & AB, AD, Flexors Mobilization Type Strumming,Sustained Pressure Intensity/Depth Moderate Body Position Sitting Comments Relieved pain with c. tx Manual Traction Cervical Details Manual C. tx Reps/Duration 8' Self-Care/Home Management Treatment Education Patient Education Home Exercise Program Activities Self-Care/Home Management Activities Issued & reviewed HEP: Radial n stretch & I/S pt in Pec stretch, C retraction stretch, C SB stretch. PT-OP-R Modalities Start: 07/04/20 19:08 Freq: Status: Active Protocol: Document 08/08/20 10:30 LRN (Rec: 08/08/20 11:11 LRN [id number]) Spinal Traction Traction Treatment Cervical Method Static Patient Position Supine Force Applied (Pounds) 8 Duration of Treatment (Minutes) 8 Heating Pad Applied No Traction Treatment Comment Elimination of R shoulder, forearm, wrist and thumb pain. Ultrasound Therapy Treatment R posterior neck Treatment Duration (minutes) 8 Patient Position Prone Mode Setting Continuous Duty Cycle 100% Intensity Setting (w/cm2) 1.7 PT-OP-T Assessment and Plan Start: 07/04/20 19:08 Freq: Status: Active Protocol: Document 08/21/20 12:46 LRN (Rec: 08/21/20 17:02 LRN [id number]) Physical Therapy Assessment Rehab Potential Rehabilitation Potential Excellent Evaluation Complexity Number of Personal Factors/Comorbidities 1-2 Number of Body Systems Impaired 4 or More Clinical Presentation at Evaluation Stable Impairments Impairments Activity Tolerance,Pain, Posture,ROM,Sensation,Soft Tissue Mobility,Strength Goals Five Impairment Decreased function per UE QuickDASH score 43.18 (40<60% impairment) Half-Way Goal (LTG) Improve function per UE QuickDASH score of no more than 39. LTG Duration 10/05/20 Four Impairment Decreased R hand strength (20# right, 31# left) Short Term Goal (STG) Improve R dominant hand instrument maker strength by 5#'s. STG Duration 09/01/20 Half-Way Goal (LTG) Symmetrical instrument maker strength without R wrist pain. LTG Duration 10/05/20 Three Impairment Decreased R wrist mobility Short Term Goal (STG) Improve mobility. STG Duration 08/25/20 Basket Mender Goal (LTG) Normal R wrist mobility equal to the L (Initial: ext: 50 deg's R, 65 deg's L; flex: 60 deg's R, 64 deg's L, UD: 29 deg's R, 50 deg's L, RD: 15 deg's R, 38 deg's L) LTG Duration 10/05/20 Two Impairment Pt not able to write due to R wrist/thumb pain Basket Mender Goal (LTG) Pt will be able to hold a pen and write without pain. LTG Duration 10/05/20 One Impairment Lacks appropriate self care HEP Short Term Goal (STG) Pt started on initial HEP of stretches and self care. HEP ISSUED TO DATE: *Finger tendon glides, *UE radial nerve stretch INSTRUCTIONS: SUP: *Cervical SB stretch, *Pec stretch, *C retraction stretch STG Duration 07/18/20 (08/21/20: Progressing) Half-Way Goal (LTG) Pt educated in a HEP for strengthening and prevention of reoccurance of symptoms. LTG Duration 10/05/20 Progress Towards Goals Progress Towards Goals Slow Progress due to Activity Tolerance Progress Comments Progress slow due to pt using R hand without brace causing increased pain. Assessment Summary Assessment Pt is a 64 yo female with R thumb/wrist/forearm pain. 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 She had a + response to C. tx last session with elimination of pain upon traction; therefore it is expected that she has cervical involvement causing R hand pain. Pt recalled relief of R thumb pain for a couple hours after last session of traction. Manual cervical traction helped to reduce pain in R thumb and at volar surface of wrist and forearm today. Pain was reproduced briefly with Suboccipital release. Pt felt relief of ms tension with Pec minor stretching. + Radial nerve glide. Pt had no R hand pain after treatment. Physical Therapy Plan Frequency and Duration Frequency of Treatment 1-2x/week Plan of Care Start Date 07/07/20 Plan of Care End Date 10/05/20 Therapeutic Interventions Therapeutic Interventions Home Exercise Program,Joint Mobilizations,Manual Therapy, Patient/Caregiver Education, Self-Care/Home Management,Soft Tissue Mobilization, Therapeutic Activities, Therapeutic Exercises Modalities Cold Pack/Ice Massage,Hot Packs,Traction- Mechanical Other Referrals/Consults Referrals/Consults Recommended If pt is unable to gain stability in her UE symptoms, cervical imaging (recommend MRI) would be appropriate. Next Visit Focus/Plan Next Note Type Progress Note Next Visit Plan Start treatment for R UE pain due to cervical involvement but complete home care for R thumb/wrist/forearm pain. Review radial n stretch, start cervical ext strengthening, Issue HEP: R thumb stretch ( Thumb flexor carpi radialis longus & brevis, Kay stretch), R wrist stretches ( flex, ext, RD, UD, supination) , AB/AD strengthening of fingers. Educate & issue modality use at home (cryotherapy & contrast bath). Pain managed, start strengthening intrinsics, AD's AB's, wrist.
--- NOTE | 2020-08-21 17:36 | PT.OPPOC ---
Physical, Occupational & Speech Therapy At [facility] Current Diagnoses Pain in unspecified wrist (08/21/20) Radiculopathy, site unspecified (08/21/20) Pain in right hand (08/21/20) Strain of intrinsic muscle, fascia and tendon of right thumb at wrist and hand level, initial encounter (08/21/20) Visit Care Team Role Provider Type Alejandra Barakat MD Attending Provider Non-Staff Primary Care Provider Referring Provider Specialty: Internal Medicine Address: [address] [place] [address], [facility] Email: Plan Of Care PT-OP-T Assessment and Plan Start: 07/04/20 19:08 Freq: Status: Active Protocol: Document 08/21/20 12:46 LRN (Rec: 08/21/20 17:02 LRN [id number]) Physical Therapy Assessment Rehab Potential Rehabilitation Potential Excellent Evaluation Complexity Number of Personal Factors/Comorbidities 1-2 Number of Body Systems Impaired 4 or More Clinical Presentation at Evaluation Stable Impairments Impairments Activity Tolerance,Pain, Posture,ROM,Sensation,Soft Tissue Mobility,Strength Goals Five Impairment Decreased function per UE QuickDASH score 43.18 (40<60% impairment) Mcc Goal (LTG) Improve function per UE QuickDASH score of no more than 39. LTG Duration 10/05/20 Four Impairment Decreased R hand strength (20# right, 31# left) Short Term Goal (STG) Improve R dominant hand retail marketing executive strength by 5#'s. STG Duration 09/01/20 Batch And Furnace Operator Goal (LTG) Symmetrical retail marketing executive strength without R wrist pain. LTG Duration 10/05/20 Three Impairment Decreased R wrist mobility Short Term Goal (STG) Improve mobility. STG Duration 08/25/20 Batch And Furnace Operator Goal (LTG) Normal R wrist mobility equal to the L (Initial: ext: 50 deg's R, 65 deg's L; flex: 60 deg's R, 64 deg's L, UD: 29 deg's R, 50 deg's L, RD: 15 deg's R, 38 deg's L) LTG Duration 10/05/20 Two Impairment Pt not able to write due to R wrist/thumb pain Mcc Goal (LTG) Pt will be able to hold a pen and write without pain. LTG Duration 10/05/20 One Impairment Lacks appropriate self care HEP Short Term Goal (STG) Pt started on initial HEP of stretches and self care. HEP ISSUED TO DATE: *Finger tendon glides, *UE radial nerve stretch INSTRUCTIONS: SUP: *Cervical SB stretch, *Pec stretch, *C retraction stretch STG Duration 07/18/20 (08/21/20: Progressing) Batch And Furnace Operator Goal (LTG) Pt educated in a HEP for strengthening and prevention of reoccurance of symptoms. LTG Duration 10/05/20 Progress Towards Goals Progress Towards Goals Slow Progress due to Activity Tolerance Progress Comments Progress slow due to pt using R hand without brace causing increased pain. Assessment Summary Assessment Pt is a 64 yo female with R thumb/wrist/forearm pain. 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 She had a + response to C. tx last session with elimination of pain upon traction; therefore it is expected that she has cervical involvement causing R hand pain. Pt recalled relief of R thumb pain for a couple hours after last session of traction. Manual cervical traction helped to reduce pain in R thumb and at volar surface of wrist and forearm today. Pain was reproduced briefly with Suboccipital release. Pt felt relief of ms tension with Pec minor stretching. + Radial nerve glide. Pt had no R hand pain after treatment. Physical Therapy Plan Frequency and Duration Frequency of Treatment 1-2x/week Plan of Care Start Date 07/07/20 Plan of Care End Date 10/05/20 Therapeutic Interventions Therapeutic Interventions Home Exercise Program,Joint Mobilizations,Manual Therapy, Patient/Caregiver Education, Self-Care/Home Management,Soft Tissue Mobilization, Therapeutic Activities, Therapeutic Exercises Modalities Cold Pack/Ice Massage,Hot Packs,Traction- Mechanical Other Referrals/Consults Referrals/Consults Recommended If pt is unable to gain stability in her UE symptoms, cervical imaging (recommend MRI) would be appropriate. Next Visit Focus/Plan Next Note Type Progress Note Next Visit Plan Start treatment for R UE pain due to cervical involvement but complete home care for R thumb/wrist/forearm pain. Review radial n stretch, start cervical ext strengthening, Issue HEP: R thumb stretch ( Thumb flexor carpi radialis longus & brevis, Kay stretch), R wrist stretches ( flex, ext, RD, UD, supination) , AB/AD strengthening of fingers. Educate & issue modality use at home (cryotherapy & contrast bath). Pain managed, start strengthening intrinsics, AD's AB's, wrist. Plan of Care Dates Plan of Care Start Date 07/07/20 Plan of Care End Date 10/05/20 Electronically Signed by: Aleyda Alvarez, PT 08/21/20 1131 Please Sign and Return: I have reviewed this Plan of Care and certify that the skilled therapy services above are required to meet the patient?s needs. Physician Signature Date Printed Name and Credentials Clinical Instructor Signature Printed Name and Credentials
--- NOTE | 2020-08-26 12:33 | PT.OTN ---
Current Diagnoses Pain in unspecified wrist (08/26/20) Radiculopathy, site unspecified (08/26/20) Pain in right hand (08/26/20) Strain of intrinsic muscle, fascia and tendon of right thumb at wrist and hand level, initial encounter (08/26/20) Physical Therapy Treatment Note PT-OP-A Visit Information Start: 07/04/20 19:08 Freq: Status: Active Protocol: Document 08/26/20 10:44 LRN (Rec: 08/26/20 11:26 LRN [id number]) Out-Patient Physical Therapy Visit Information Visit Information Visit Type Treatment Note Visit Note 1 after PN Visit Start Time 10:44 Visit Stop Time 11:29 Total Visit Minutes 45 Visit Number 7 Evaluation Information Evaluation Date 07/07/20 Precautions Precautions 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 Hospitalized May 2020 for HBP, now controlled. 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 Saw a couple weeks after returning and was given exercises that made it worse. Was given a R thumb splint at night. States it has helped. Prior Treatments and Tests Nighttime thumb splint. 2 yrs ago treatment for tendonitis of R elbow with possibly damage to Biceps. Treatment Goals Patient/Caregiver Goals Pt goal is to get exercises that she can do on her own mostly because of her job and to become painfree. Prior Functional Status Baseline Function- ADL's Independent Baseline Function- Mobility Independent Baseline Function- Work/School No limitations with performing work duties. Baseline Function- Recreation/Hobbies Row, ex @ gym (high intensity) Current Functional Impairments (Reported) Functional Limitations- ADL's Drives with mostly L hand and keeps R hand down resting. 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 Retiring with last day, 08/15/2020 Functional Limitations- Recreation/ Gym is closed. Hobbies Personal Factors Other Personal Factors That May Effect Skin CA Therapy/Recovery PT-OP-C Subjective Start: 07/04/20 19:08 Freq: Status: Active Protocol: Document 08/26/20 10:44 LRN (Rec: 08/26/20 11:26 LRN [id number]) OP-PT Subjective Patient Comments Patient Comments Doing a little better because wearing wrist splint. After last session was painfree in thumb for 1.5 days. Pain today is 2/10. PT-OP-F Manual Assessment Start: 07/04/20 19:08 Freq: Status: Active Protocol: Document 08/21/20 12:46 LRN (Rec: 08/21/20 17:35 LRN [id number]) Manual Assessments Soft Tissue Assessment Soft Tissue Mobility Assessment No palpable pain in R forearm or volar wrist after manual c. tx. No edema in R forearm is visible. R hand ADD Policus muscle weakness and visible atrophy. PT-OP-H Neuro Start: 07/04/20 19:08 Freq: Status: Active Protocol: Document 07/07/20 08:17 LRN (Rec: 07/07/20 09:04 LRN [id number]) Sensation Evaluation Comments Summary Comments Driving or exercising on Eliptical has numbness of R hand. Tingling after a while numb. PT-OP-J Posture/Palpation/Skin Start: 07/04/20 19:08 Freq: Status: Active Protocol: Document 07/07/20 08:17 LRN (Rec: 07/07/20 09:04 LRN [id number]) Posture Evaluation Comments Posture Comments Forward rounded shoulders. R thumb atrophy at 1st interosseous. Palpation Assessment Location R hand Palpation Location Snuff Box Palpation Findings Tenderness Palpation Details Extreme tenderness at tendons of anatomical snuff box of R hand. Tenderness of carpel bones closest to CMC joint. PT-OP-K Range of Motion Start: 07/04/20 19:08 Freq: Status: Active Protocol: Document 07/21/20 08:17 LRN (Rec: 07/21/20 09:06 LRN [id number]) Thumb Goniometric Range of Motion Thumb Right Thumb ROM WFL No MCP Flexion Passive (degrees) 70 IP Flexion Passive (degrees) 90 PT-OP-L Special Tests Start: 07/04/20 19:08 Freq: Status: Active Protocol: Document 07/07/20 08:17 LRN (Rec: 07/07/20 09:04 LRN [id number]) Special Tests Wrist/Hand Special Tests Lateral Epicondylitis Extended Test Results - Comments Pain at R wrist, not elbow Kay's Test Results + Comments Indicates possible de quervain 's tenosynovitis PT-OP-M Strength Start: 07/04/20 19:08 Freq: Status: Active Protocol: Document 07/07/20 08:17 LRN (Rec: 07/07/20 09:04 LRN [id number]) Shoulder Strength Shoulder Manual Muscle Testing Right Comments Generally 5/5 with pain in R UE. Elbow/Forearm Strength Elbow and Forearm Manual Muscle Testing Left Comments Generally 5/5 Right Comments Generally 5/5 with pain in R UE. Wrist Strength Wrist Manual Muscle Testing Right Flexion (C7) 3+ Fair+ Extension (C6) 3+ Fair+ Ulnar Deviation 5 Normal Radial Deviation 4 Good Left Comments Generally 5/5 Finger/Thumb Strength Finger Manual Muscle Testing Right Thumb Flexion (fingers C8) 5 Normal Extension (thumb C8) 3 Fair Adduction 3 Fair Abduction (fingers T1) 5 Normal Hand Procurement Buyer/Pinch Strength Hand Dominance Hand Dominance Right Hand Strength Left Procurement Buyer (lbs) 31 Comments 3 trials (lbs): 30, 35, 30 Right Procurement Buyer (lbs) 20 Comments 3 trials (lbs): 20, 20, 20 PT-OP-Q Treatments Start: 07/04/20 19:08 Freq: Status: Active Protocol: Document 08/26/20 10:44 LRN (Rec: 08/26/20 11:26 LRN [id number]) Therapeutic Exercises Supine Exercises Radial n stretch Supine Exercise Name Radial n glide Side right R hand water resource project manager with/without thumb Supine Exercise Name R hand water resource project manager strengthening with occasional manual c.tx Reps/Minutes 10x 1 gripping, 8x 3 sets wrist ext Comments Pt moving slow and cautiously Cervical retraction Supine Exercise Name Chin tuck Reps/Minutes 10 hold x 8 Comments Extra time needed for training of max positioning Standing Exercises Radial n glide Standing Exercise Name Radial n glide Side right Manual Therapy Treatment Soft Tissue Mobilization Cervical Body Location Suboccipital, paraspinals, UT Mobilization Type Sustained Pressure Intensity/Depth Moderate Body Position Prone Comments 18' Manual Traction Cervical Details Manual C. tx Body Position Supine Reps/Duration 10' Comments 10# Self-Care/Home Management Treatment Education Patient Education Home Exercise Program Other Education Reviewed and educated pt in use of her home cervical Lacy traction unit at lowerest setting, 8-10' with 8 -10# pull and precautions of use discussed regarding increased symptoms. Activities Self-Care/Home Management Activities I/S pt in chin tuck and cervical ext in chair ex. PT-OP-R Modalities Start: 07/04/20 19:08 Freq: Status: Active Protocol: Document 08/08/20 10:30 LRN (Rec: 08/08/20 11:11 LRN [id number]) Spinal Traction Traction Treatment Cervical Method Static Patient Position Supine Force Applied (Pounds) 8 Duration of Treatment (Minutes) 8 Heating Pad Applied No Traction Treatment Comment Elimination of R shoulder, forearm, wrist and thumb pain. Ultrasound Therapy Treatment R posterior neck Treatment Duration (minutes) 8 Patient Position Prone Mode Setting Continuous Duty Cycle 100% Intensity Setting (w/cm2) 1.7 PT-OP-T Assessment and Plan Start: 07/04/20 19:08 Freq: Status: Active Protocol: Document 08/26/20 10:44 LRN (Rec: 08/26/20 11:26 LRN [id number]) Physical Therapy Assessment Goals Five Impairment Decreased function per UE QuickDASH score 43.18 (40<60% impairment) Bin Cleaner Goal (LTG) Improve function per UE QuickDASH score of no more than 39. LTG Duration 10/05/20 Four Impairment Decreased R hand strength (20# right, 31# left) Short Term Goal (STG) Improve R dominant hand water resource project manager strength by 5#'s. STG Duration 09/01/20 Bin Cleaner Goal (LTG) Symmetrical water resource project manager strength without R wrist pain. LTG Duration 10/05/20 Three Impairment Decreased R wrist mobility Short Term Goal (STG) Improve mobility. STG Duration 08/25/20 Bin Cleaner Goal (LTG) Normal R wrist mobility equal to the L (Initial: ext: 50 deg's R, 65 deg's L; flex: 60 deg's R, 64 deg's L, UD: 29 deg's R, 50 deg's L, RD: 15 deg's R, 38 deg's L) LTG Duration 10/05/20 Two Impairment Pt not able to write due to R wrist/thumb pain Bin Cleaner Goal (LTG) Pt will be able to hold a pen and write without pain. LTG Duration 10/05/20 One Impairment Lacks appropriate self care HEP Short Term Goal (STG) Pt started on initial HEP of stretches and self care. HEP ISSUED TO DATE: *Finger tendon glides, *UE radial nerve stretch INSTRUCTIONS: SUP: *Cervical SB stretch, *Pec stretch, *C retraction stretch, *Active C . ext in chair ex. STG Duration 07/18/20 (08/21/20: Progressing) Long-Term Goal (LTG) Pt educated in a HEP for strengthening and prevention of reoccurance of symptoms. LTG Duration 10/05/20 Assessment Summary Assessment Pt had + response to static cervical traction last treatment with pain resolution 1.5 days. Pt is finishing up at work and appears to be exacerbating her R thumb pain with use and probable poor cervical positioning. The pt is to use her hot tub at home to relax her neck/shoulder muscles, then try her spouse's home traction unit with I/S for same set up of 8-10', 8-10 #. She seems to have a good understanding of precautions of use (no increase in symptoms and limiting time and lb of pull). Physical Therapy Plan Frequency and Duration Frequency of Treatment 1-2x/week Plan of Care Start Date 07/07/20 Plan of Care End Date 10/05/20 Next Visit Focus/Plan Next Note Type Treatment Note Next Visit Plan Treatment for R UE pain due to cervical involvement but complete home care for R thumb /wrist/forearm pain. Review sitting active C ext strengthening and progress as tolerated. Review radial n stretch. Issue HEP: R thumb stretch ( Thumb flexor carpi radialis longus & brevis, Kay stretch), R wrist stretches ( flex, ext, RD, UD, supination) , AB/AD strengthening of fingers. Pain managed, start strengthening intrinsics, AD's AB's, wrist.
--- NOTE | 2020-09-01 12:28 | PT.OTN ---
Current Diagnoses Pain in unspecified wrist (09/01/20) Radiculopathy, site unspecified (09/01/20) Pain in right hand (09/01/20) Strain of intrinsic muscle, fascia and tendon of right thumb at wrist and hand level, initial encounter (09/01/20) Physical Therapy Treatment Note PT-OP-A Visit Information Start: 07/04/20 19:08 Freq: Status: Active Protocol: Document 09/01/20 11:33 LRN (Rec: 09/01/20 12:25 LRN [id number]) Out-Patient Physical Therapy Visit Information Visit Information Visit Type Treatment Note Visit Note 2 after PN Visit Start Time 11:33 Visit Stop Time 12:15 Total Visit Minutes 42 Visit Number 8 Evaluation Information Evaluation Date 07/07/20 Precautions Precautions 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 Hospitalized May 2020 for HBP, now controlled. 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 Saw a couple weeks after returning and was given exercises that made it worse. Was given a R thumb splint at night. States it has helped. Prior Treatments and Tests Nighttime thumb splint. 2 yrs ago treatment for tendonitis of R elbow with possibly damage to Biceps. Treatment Goals Patient/Caregiver Goals Pt goal is to get exercises that she can do on her own mostly because of her job and to become painfree. Prior Functional Status Baseline Function- ADL's Independent Baseline Function- Mobility Independent Baseline Function- Work/School No limitations with performing work duties. Baseline Function- Recreation/Hobbies Row, ex @ gym (high intensity) Current Functional Impairments (Reported) Functional Limitations- ADL's Drives with mostly L hand and keeps R hand down resting. 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 Hobbies Personal Factors Other Personal Factors That May Effect Skin CA Therapy/Recovery PT-OP-C Subjective Start: 07/04/20 19:08 Freq: Status: Active Protocol: Document 09/01/20 11:33 LRN (Rec: 09/01/20 12:25 LRN [id number]) OP-PT Subjective Patient Comments Patient Comments After the last session felt better for 1.5 days, then tried to remove a credit card from wallet with R thumb and index finger causing a lot of pain. Had to wash thumb brace 2 days ago, therefore more discomfort in the R wrist. Pain R thumb today 3/10, after thumb assessment pain was 4-5 /10, decreased after treatment . PT-OP-F Manual Assessment Start: 07/04/20 19:08 Freq: Status: Active Protocol: Document 08/21/20 12:46 LRN (Rec: 08/21/20 17:35 LRN [id number]) Manual Assessments Soft Tissue Assessment Soft Tissue Mobility Assessment No palpable pain in R forearm or volar wrist after manual c. tx. No edema in R forearm is visible. R hand ADD Policus muscle weakness and visible atrophy. PT-OP-H Neuro Start: 07/04/20 19:08 Freq: Status: Active Protocol: Document 07/07/20 08:17 LRN (Rec: 07/07/20 09:04 LRN [id number]) Sensation Evaluation Comments Summary Comments Driving or exercising on Eliptical has numbness of R hand. Tingling after a while numb. PT-OP-J Posture/Palpation/Skin Start: 07/04/20 19:08 Freq: Status: Active Protocol: Document 07/07/20 08:17 LRN (Rec: 07/07/20 09:04 LRN [id number]) Posture Evaluation Comments Posture Comments Forward rounded shoulders. R thumb atrophy at 1st interosseous. Palpation Assessment Location R hand Palpation Location Snuff Box Palpation Findings Tenderness Palpation Details Extreme tenderness at tendons of anatomical snuff box of R hand. Tenderness of carpel bones closest to CMC joint. PT-OP-K Range of Motion Start: 07/04/20 19:08 Freq: Status: Active Protocol: Document 07/21/20 08:17 LRN (Rec: 07/21/20 09:06 LRN [id number]) Thumb Goniometric Range of Motion Thumb Right Thumb ROM WFL No MCP Flexion Passive (degrees) 70 IP Flexion Passive (degrees) 90 PT-OP-L Special Tests Start: 07/04/20 19:08 Freq: Status: Active Protocol: Document 07/07/20 08:17 LRN (Rec: 07/07/20 09:04 LRN [id number]) Special Tests Wrist/Hand Special Tests Lateral Epicondylitis Extended Test Results - Comments Pain at R wrist, not elbow Kay's Test Results + Comments Indicates possible de quervain 's tenosynovitis PT-OP-M Strength Start: 07/04/20 19:08 Freq: Status: Active Protocol: Document 07/07/20 08:17 LRN (Rec: 07/07/20 09:04 LRN [id number]) Shoulder Strength Shoulder Manual Muscle Testing Right Comments Generally 5/5 with pain in R UE. Elbow/Forearm Strength Elbow and Forearm Manual Muscle Testing Left Comments Generally 5/5 Right Comments Generally 5/5 with pain in R UE. Wrist Strength Wrist Manual Muscle Testing Right Flexion (C7) 3+ Fair+ Extension (C6) 3+ Fair+ Ulnar Deviation 5 Normal Radial Deviation 4 Good Left Comments Generally 5/5 Finger/Thumb Strength Finger Manual Muscle Testing Right Thumb Flexion (fingers C8) 5 Normal Extension (thumb C8) 3 Fair Adduction 3 Fair Abduction (fingers T1) 5 Normal Hand Mechanical Design Engineer/Pinch Strength Hand Dominance Hand Dominance Right Hand Strength Left Mechanical Design Engineer (lbs) 31 Comments 3 trials (lbs): 30, 35, 30 Right Mechanical Design Engineer (lbs) 20 Comments 3 trials (lbs): 20, 20, 20 PT-OP-Q Treatments Start: 07/04/20 19:08 Freq: Status: Active Protocol: Document 09/01/20 11:33 LRN (Rec: 09/01/20 12:25 LRN [id number]) Therapeutic Exercises Supine Exercises R wrist ext Supine Exercise Name Active Wrist ext stretch Side right Reps/Minutes 5-10 holds, 3' R sup/pron Supine Exercise Name Active Sup/Pron gentle stretch Side right Reps/Minutes 5-10 holds, 3' Sitting Exercises Wrist flex Sitting Exercise Name Active wrist flex (elbow 90 deg's flexed) Side right Equipment Used table to support forearm Reps/Minutes 6' Comments Low tolerance after numerous times positioning Elbow Curls Sitting Exercise Name Elbow Curls Side bilateral Equipment Used 2# ankle wgt around forearms Reps/Minutes 10x 3 Tricep Ext Sitting Exercise Name Tricep Ext (arms overhead) Side bilateral Equipment Used 2# ankle wgt around forearms Reps/Minutes 10x 3 Kay stretch Sitting Exercise Name [place] stretch Side right Comments Minimal movement to obtain stretch PT-OP-R Modalities Start: 07/04/20 19:08 Freq: Status: Active Protocol: Document 09/01/20 11:33 LRN (Rec: 09/01/20 12:25 LRN [id number]) Ultrasound Therapy Treatment R forearm Treatment Duration (minutes) 4 Patient Position Supine Coupling Medium Ultrasound Gel Applicator Size (cm2) 2 Frequency Setting (mHz) 3 Mode Setting Pulsed Duty Cycle 50% Intensity Setting (w/cm2) 1.0 Comments R thumb AB ms belly R [place] Treatment Duration (minutes) 4 Patient Position Supine Coupling Medium Ultrasound Gel Applicator Size (cm2) 2 Frequency Setting (mHz) 3 Mode Setting Pulsed Duty Cycle 50% Intensity Setting (w/cm2) 1.0 Comments US to Thenar eminence and snuff box. PT-OP-T Assessment and Plan Start: 07/04/20 19:08 Freq: Status: Active Protocol: Document 09/01/20 11:33 LRN (Rec: 09/01/20 12:25 LRN [id number]) Physical Therapy Assessment Goals Five Impairment Decreased function per UE QuickDASH score 43.18 (40<60% impairment) Snf Goal (LTG) Improve function per UE QuickDASH score of no more than 39. LTG Duration 10/05/20 Four Impairment Decreased R hand strength (20# right, 31# left) Short Term Goal (STG) Improve R dominant hand assistant oceanographer strength by 5#'s. STG Duration 09/01/20 Vault Service Mechanic Goal (LTG) Symmetrical assistant oceanographer strength without R wrist pain. LTG Duration 10/05/20 Three Impairment Decreased R wrist mobility Short Term Goal (STG) Improve mobility. STG Duration 08/25/20 Snf Goal (LTG) Normal R wrist mobility equal to the L (Initial: ext: 50 deg's R, 65 deg's L; flex: 60 deg's R, 64 deg's L, UD: 29 deg's R, 50 deg's L, RD: 15 deg's R, 38 deg's L) LTG Duration 10/05/20 Two Impairment Pt not able to write due to R wrist/thumb pain Snf Goal (LTG) Pt will be able to hold a pen and write without pain. LTG Duration 10/05/20 One Impairment Lacks appropriate self care HEP Short Term Goal (STG) Pt started on initial HEP of stretches and self care. HEP ISSUED TO DATE: *Finger tendon glides, *UE radial nerve stretch INSTRUCTIONS: SUP: *Cervical SB stretch, *Pec stretch, *C retraction stretch, *Active C . ext in chair ex. STG Duration 07/18/20 (08/21/20: Progressing) Vault Service Mechanic Goal (LTG) Pt educated in a HEP for strengthening and prevention of reoccurance of symptoms. LTG Duration 10/05/20 Progress Towards Goals Progress Towards Goals Slow Progress due to Activity Tolerance Progress Comments Pt re-strained her R thumb AB' s, flexor; therefore lower tolerance to activity today. Assessment Summary Assessment + Kay, active wrist AROM is painful with no change in pain during cervical traction; therefore pt appears to have strained her R thumb AB's, flexor and R thumb pain is not involving cervical spine. Physical Therapy Plan Frequency and Duration Frequency of Treatment 1-2x/week Plan of Care Start Date 07/07/20 Plan of Care End Date 10/05/20 Next Visit Focus/Plan Next Note Type Treatment Note Next Visit Plan Review I/S HEP for active wrist flex/ext/sup/pron. Assess for priority of treatment of R UE pain due to cervical involvement or R thumb strain. Continue home care for R thumb/wrist/forearm pain. Review sitting active C ext strengthening and progress as tolerated. Review radial n stretch. Issue HEP: R thumb stretch ( Thumb flexor carpi radialis longus & brevis, Kay stretch), R wrist stretches ( flex, ext, RD, UD, supination) , AB/AD strengthening of fingers. Pain managed, start strengthening intrinsics, AD's AB's, wrist.
--- NOTE | 2020-09-22 13:03 | PT.OPPOC ---
Physical, Occupational & Speech Therapy At [facility] Current Diagnoses Pain in unspecified wrist (09/22/20) Radiculopathy, site unspecified (09/22/20) Pain in right hand (09/22/20) Strain of intrinsic muscle, fascia and tendon of right thumb at wrist and hand level, initial encounter (09/22/20) Visit Care Team Role Provider Type Alejandra Barakat MD Attending Provider Non-Staff Primary Care Provider Referring Provider Specialty: Internal Medicine Address: [address] [place] [address], [address] Email: Plan Of Care PT-OP-T Assessment and Plan Start: 07/04/20 19:08 Freq: Status: Active Protocol: Document 09/22/20 09:05 LRN (Rec: 09/22/20 10:28 LRN [id number]) Physical Therapy Assessment Rehab Potential Rehabilitation Potential Excellent Evaluation Complexity Number of Personal Factors/Comorbidities 1-2 Number of Body Systems Impaired 4 or More Clinical Presentation at Evaluation Stable Impairments Impairments Activity Tolerance,Pain, Posture,ROM,Sensation,Soft Tissue Mobility,Strength Goals Five Impairment Decreased function per UE QuickDASH score 43.18 (40<60% impairment) Long-Term Goal (LTG) Improve function per UE QuickDASH score of no more than 39. (09/22/20: UE QuickDASH is 34. 09) LTG Duration 10/05/20 (09/22/20: MET GOAL) Four Impairment Decreased R hand strength (20# right, 31# left) Short Term Goal (STG) Improve R dominant hand biztalk developer strength by 5#'s. (09/22/20: No change, biztalk developer strength is 20# without pain, avg of 3 trials). STG Duration 09/01/20 (09/22/20: No change) Long-Term Goal (LTG) Symmetrical biztalk developer strength without R wrist pain. LTG Duration 10/05/20 Three Impairment Decreased R wrist mobility Short Term Goal (STG) Improve mobility. STG Duration 08/25/20 (09/22/20: Improved after stretching) Broiler Chef Or Cook Goal (LTG) Normal R wrist mobility equal to the L (Initial: ext: 50 deg's R, 65 deg's L; flex: 60 deg's R, 64 deg's L, UD: 29 deg's R, 50 deg's L, RD: 15 deg's R, 38 deg's L) (09/22/20: ext: 24 deg's R, 65 deg's L; flex: 66 deg's R, 64 deg's L; UD & RD not assessed ) LTG Duration 10/05/20 (09/22/20: Improved after stretching) Two Impairment Pt not able to write due to R wrist/thumb pain Long-Term Goal (LTG) Pt will be able to hold a pen and write without pain. LTG Duration 10/05/20 (09/22/20: NOT MET) One Impairment Lacks appropriate self care HEP Short Term Goal (STG) Pt started on initial HEP of stretches and self care. HEP ISSUED TO DATE: *Finger tendon glides, *UE radial nerve stretch, *Thumb active & passive ROM: flex, ext, AB, *Intrinsics INSTRUCTIONS: SUP: *Cervical SB stretch, *Pec stretch, *C retraction stretch, *Active C . ext in chair ex. *R Wrist stretch into flex, ext & supination. STG Duration 07/18/20 (09/22/20: MET GOAL) Broiler Chef Or Cook Goal (LTG) Pt educated in a HEP for strengthening and prevention of reoccurance of symptoms. LTG Duration 10/05/20 Progress Towards Goals Progress Comments Goal #5 MET. Function improved per UE QuickDASH score 34.09 indicated 20<40% impairment. Pain has lessened from 5/10 to 3/10. Progressed HEP for all AROM/ PROM stretch of thumb & verbal I/S for wrist. Assessment Summary Assessment Pt has resolution of R neck/ shoulder pain with use of home traction unit. Pt primarily having R wrist/thumb pain with use. Her R wrist/thumb mobility improves with stretching. She is able to perform active ROM of the wrist and thumb without pain if within her painfree ROM. She still has limitations with strength due to pain and soft tissue restrictions from wearing her wrist/thumb brace; therefore further therapy to progress the pt on her ROM & strengthening program would be beneficial. Physical Therapy Plan Frequency and Duration Frequency of Treatment 1-2x/week Plan of Care Start Date 09/22/20 Plan of Care End Date 11/22/22 Therapeutic Interventions Therapeutic Interventions Home Exercise Program,Joint Mobilizations,Manual Therapy, Patient/Caregiver Education, Self-Care/Home Management,Soft Tissue Mobilization, Therapeutic Activities, Therapeutic Exercises Modalities Cold Pack/Ice Massage,Hot Packs Next Visit Focus/Plan Next Note Type Treatment Note Next Visit Plan Review HEP issued last treatment (R thumb stretch ( Thumb flexor carpi radialis longus & brevis, Kay stretch), R wrist stretches ( flex, ext, RD, UD, supination) and AB/AD strengthening of fingers). Continue home care for R thumb/wrist/forearm pain . Review radial n stretch. Issue HEP: AB/AD strengthening of thumb if can do without pain. Pain managed, start strengthening intrinsics, AD's AB's, wrist. Plan of Care Dates Plan of Care Start Date 09/22/20 Plan of Care End Date 11/22/22 Electronically Signed by: Aleyda Alvarez, PT 09/23/20 5039 Please Sign and Return: I have reviewed this Plan of Care and certify that the skilled therapy services above are required to meet the patient?s needs. Physician Signature Date Printed Name and Credentials Clinical Instructor Signature Printed Name and Credentials
--- NOTE | 2020-09-22 13:04 | PT.OTN ---
Current Diagnoses Pain in unspecified wrist (09/22/20) Radiculopathy, site unspecified (09/22/20) Pain in right hand (09/22/20) Strain of intrinsic muscle, fascia and tendon of right thumb at wrist and hand level, initial encounter (09/22/20) Physical Therapy Treatment Note PT-OP-A Visit Information Start: 07/04/20 19:08 Freq: Status: Active Protocol: Document 09/22/20 09:05 LRN (Rec: 09/22/20 10:28 LRN [id number]) Out-Patient Physical Therapy Visit Information Visit Information Visit Type Progress Note Visit Start Time 09:05 Visit Stop Time 09:50 Total Visit Minutes 45 Visit Number 9 Evaluation Information Evaluation Date 07/07/20 Precautions Precautions 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 Hospitalized May 2020 for HBP, now controlled. 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 Saw a couple weeks after returning and was given exercises that made it worse. Was given a R thumb splint at night. States it has helped. Prior Treatments and Tests Nighttime thumb splint. 2 yrs ago treatment for tendonitis of R elbow with possibly damage to Biceps. Treatment Goals Patient/Caregiver Goals Pt goal is to get exercises that she can do on her own mostly because of her job and to become painfree. Prior Functional Status Baseline Function- ADL's Independent Baseline Function- Mobility Independent Baseline Function- Work/School No limitations with performing work duties. Baseline Function- Recreation/Hobbies Row, ex @ gym (high intensity) Current Functional Impairments (Reported) Functional Limitations- ADL's Drives with mostly L hand and keeps R hand down resting. 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 Retiring with last day, 08/15/2020 Functional Limitations- Recreation/ Gym is closed. Hobbies Personal Factors Other Personal Factors That May Effect Skin CA Therapy/Recovery PT-OP-C Subjective Start: 07/04/20 19:08 Freq: Status: Active Protocol: Document 09/22/20 09:05 LRN (Rec: 09/22/20 10:28 LRN [id number]) OP-PT Subjective Patient Comments Patient Comments Chemo on the face. R Wrist and thumb still hurts, wearing the wrist splint. Everything else (neck shoulder) feels fine. Used the C. traction. Referrals go away on the due to [facility]. L wrist/ thumb is fine. Patient Questionnaires Quick Dash- Upper Extremity Quick Dash UE Score 34.09 Quick Dash UE Impairment 20 to 39% Impaired (Score 20- 39) OP-PT Pain Assessment Pain Assessment Grid Paper Pain Assessment Grid Completed Yes Location Right Medial Hand Pain Location Details R anterior wrist Intensity 3 Scale Used Numeric (0 - 10) PT-OP-F Manual Assessment Start: 07/04/20 19:08 Freq: Status: Active Protocol: Document 08/21/20 12:46 LRN (Rec: 08/21/20 17:35 LRN [id number]) Manual Assessments Soft Tissue Assessment Soft Tissue Mobility Assessment No palpable pain in R forearm or volar wrist after manual c. tx. No edema in R forearm is visible. R hand ADD Policus muscle weakness and visible atrophy. PT-OP-H Neuro Start: 07/04/20 19:08 Freq: Status: Active Protocol: Document 07/07/20 08:17 LRN (Rec: 07/07/20 09:04 LRN [id number]) Sensation Evaluation Comments Summary Comments Driving or exercising on [employer]pt[employer] has numbness of R hand. Tingling after a while numb. PT-OP-J Posture/Palpation/Skin Start: 07/04/20 19:08 Freq: Status: Active Protocol: Document 07/07/20 08:17 LRN (Rec: 07/07/20 09:04 LRN [id number]) Posture Evaluation Comments Posture Comments Forward rounded shoulders. R thumb atrophy at 1st interosseous. Palpation Assessment Location R hand Palpation Location Snuff Box Palpation Findings Tenderness Palpation Details Extreme tenderness at tendons of anatomical snuff box of R hand. Tenderness of carpel bones closest to CMC joint. PT-OP-K Range of Motion Start: 07/04/20 19:08 Freq: Status: Active Protocol: Document 09/22/20 09:05 LRN (Rec: 09/22/20 10:28 LRN [id number]) Wrist Goniometric Range of Motion Wrist Right Wrist ROM WFL No Flexion Active (degrees) 48 Extension Active (degrees) 10 Left Wrist ROM WFL Yes Flexion Active (degrees) 62 Extension Active (degrees) 38 ROM Limitations Comments After stretching R wrist: Ext was 10 deg's, now 24 deg's . Flex was 48 degs, now 66 deg's . Thumb Goniometric Range of Motion Thumb Left MCP Flexion Active (degrees) 54 MCP Flexion Passive (degrees) 60 IP Flexion Active (degrees) 28 IP Extension Active (degrees) 38 Comments AB is 60 deg's. Right Thumb ROM WFL No MCP Flexion Active (degrees) 50 MCP Flexion Passive (degrees) 68 IP Flexion Active (degrees) 4 IP Extension Active (degrees) 6 Comments PROM: MCP jt increased 60-68 deg's with stretching. AB is 50 deg's PT-OP-L Special Tests Start: 07/04/20 19:08 Freq: Status: Active Protocol: Document 07/07/20 08:17 LRN (Rec: 07/07/20 09:04 LRN [id number]) Special Tests Wrist/Hand Special Tests Lateral Epicondylitis Extended Test Results - Comments Pain at R wrist, not elbow Kay's Test Results + Comments Indicates possible de quervain 's tenosynovitis PT-OP-M Strength Start: 07/04/20 19:08 Freq: Status: Active Protocol: Document 09/22/20 09:05 LRN (Rec: 09/22/20 10:28 LRN [id number]) Hand Conference Manager/Pinch Strength Hand Strength Left Conference Manager (lbs) 31 Comments 3 trials (lbs): 30, 35, 30 Right Conference Manager (lbs) 20 Comments 3 trials (lbs): 22#, 21#, 18# PT-OP-Q Treatments Start: 07/04/20 19:08 Freq: Status: Active Protocol: Document 09/22/20 09:05 LRN (Rec: 09/22/20 10:28 LRN [id number]) Therapeutic Exercises Supine Exercises R wrist ext Supine Exercise Name Wrist ext stretch Side right Reps/Minutes 3' R sup/pron Supine Exercise Name Sup gentle stretch Side right Reps/Minutes 3' Sitting Exercises Wrist flex Sitting Exercise Name Active wrist flex (elbow 90 deg's flexed) Side right Equipment Used table to support forearm Reps/Minutes 9' Comments Low tolerance after numerous times positioning Wrist stretch Sitting Exercise Name Ext Side right Reps/Minutes 9' Supination Sitting Exercise Name Stretch Side right Reps/Minutes 3' Tendon Glides Sitting Exercise Name AROM intrinsics Side right Reps/Minutes 5' Kay stretch Sitting Exercise Name [place] stretch Side right Reps/Minutes 3' Self-Care/Home Management Treatment Education Patient Education Home Exercise Program Other Education Reviewed goals and discussed pt's Plan of care. Activities Self-Care/Home Management Activities Issued & reviewed HEP: *Thumb active & passive ROM: flex, ext, AB, *Intrinsics *Thumb active & passive ROM: flex, ext, AB, *Intrinsics PT-OP-R Modalities Start: 07/04/20 19:08 Freq: Status: Active Protocol: Document 09/01/20 11:33 LRN (Rec: 09/01/20 12:25 LRN [id number]) Ultrasound Therapy Treatment R forearm Treatment Duration (minutes) 4 Patient Position Supine Coupling Medium Ultrasound Gel Applicator Size (cm2) 2 Frequency Setting (mHz) 3 Mode Setting Pulsed Duty Cycle 50% Intensity Setting (w/cm2) 1.0 Comments R thumb AB ms belly R [place] Treatment Duration (minutes) 4 Patient Position Supine Coupling Medium Ultrasound Gel Applicator Size (cm2) 2 Frequency Setting (mHz) 3 Mode Setting Pulsed Duty Cycle 50% Intensity Setting (w/cm2) 1.0 Comments US to Thenar eminence and snuff box. PT-OP-T Assessment and Plan Start: 07/04/20 19:08 Freq: Status: Active Protocol: Document 09/22/20 09:05 LRN (Rec: 09/22/20 10:28 LRN [id number]) Physical Therapy Assessment Rehab Potential Rehabilitation Potential Excellent Evaluation Complexity Number of Personal Factors/Comorbidities 1-2 Number of Body Systems Impaired 4 or More Clinical Presentation at Evaluation Stable Impairments Impairments Activity Tolerance,Pain, Posture,ROM,Sensation,Soft Tissue Mobility,Strength Goals Five Impairment Decreased function per UE QuickDASH score 43.18 (40<60% impairment) Residential Goal (LTG) Improve function per UE QuickDASH score of no more than 39. (09/22/20: UE QuickDASH is 34. 09) LTG Duration 10/05/20 (09/22/20: MET GOAL) Four Impairment Decreased R hand strength (20# right, 31# left) Short Term Goal (STG) Improve R dominant hand estimating engineer strength by 5#'s. (09/22/20: No change, estimating engineer strength is 20# without pain, avg of 3 trials). STG Duration 09/01/20 (09/22/20: No change) Residential Goal (LTG) Symmetrical estimating engineer strength without R wrist pain. LTG Duration 10/05/20 Three Impairment Decreased R wrist mobility Short Term Goal (STG) Improve mobility. STG Duration 08/25/20 (09/22/20: Improved after stretching) Athletics Teacher Goal (LTG) Normal R wrist mobility equal to the L (Initial: ext: 50 deg's R, 65 deg's L; flex: 60 deg's R, 64 deg's L, UD: 29 deg's R, 50 deg's L, RD: 15 deg's R, 38 deg's L) (09/22/20: ext: 24 deg's R, 65 deg's L; flex: 66 deg's R, 64 deg's L; UD & RD not assessed ) LTG Duration 10/05/20 (09/22/20: Improved after stretching) Two Impairment Pt not able to write due to R wrist/thumb pain Residential Goal (LTG) Pt will be able to hold a pen and write without pain. LTG Duration 10/05/20 (09/22/20: NOT MET) One Impairment Lacks appropriate self care HEP Short Term Goal (STG) Pt started on initial HEP of stretches and self care. HEP ISSUED TO DATE: *Finger tendon glides, *UE radial nerve stretch, *Thumb active & passive ROM: flex, ext, AB, *Intrinsics INSTRUCTIONS: SUP: *Cervical SB stretch, *Pec stretch, *C retraction stretch, *Active C . ext in chair ex. *R Wrist stretch into flex, ext & supination. STG Duration 07/18/20 (09/22/20: MET GOAL) Residential Goal (LTG) Pt educated in a HEP for strengthening and prevention of reoccurance of symptoms. LTG Duration 10/05/20 Progress Towards Goals Progress Comments Goal #5 MET. Function improved per UE QuickDASH score 34.09 indicated 20<40% impairment. Pain has lessened from 5/10 to 3/10. Progressed HEP for all AROM/ PROM stretch of thumb & verbal I/S for wrist. Assessment Summary Assessment Pt has resolution of R neck/ shoulder pain with use of home traction unit. Pt primarily having R wrist/thumb pain with use. Her R wrist/thumb mobility improves with stretching. She is able to perform active ROM of the wrist and thumb without pain if within her painfree ROM. She still has limitations with strength due to pain and soft tissue restrictions from wearing her wrist/thumb brace; therefore further therapy to progress the pt on her ROM & strengthening program would be beneficial. Physical Therapy Plan Frequency and Duration Frequency of Treatment 1-2x/week Plan of Care Start Date 09/22/20 Plan of Care End Date 11/22/22 Therapeutic Interventions Therapeutic Interventions Home Exercise Program,Joint Mobilizations,Manual Therapy, Patient/Caregiver Education, Self-Care/Home Management,Soft Tissue Mobilization, Therapeutic Activities, Therapeutic Exercises Modalities Cold Pack/Ice Massage,Hot Packs Next Visit Focus/Plan Next Note Type Treatment Note Next Visit Plan Review HEP issued last treatment (R thumb stretch ( Thumb flexor carpi radialis longus & brevis, Kay stretch), R wrist stretches ( flex, ext, RD, UD, supination) and AB/AD strengthening of fingers). Continue home care for R thumb/wrist/forearm pain . Review radial n stretch. Issue HEP: AB/AD strengthening of thumb if can do without pain. Pain managed, start strengthening intrinsics, AD's AB's, wrist.
--- NOTE | 2020-12-09 13:09 | PT.OPDS ---
Current Diagnoses Pain in unspecified wrist (09/22/20) Radiculopathy, site unspecified (09/22/20) Pain in right hand (09/22/20) Strain of intrinsic muscle, fascia and tendon of right thumb at wrist and hand level, initial encounter (09/22/20) Visit Care Team Role Provider Type Alejandra Barakat MD Attending Provider Non-Staff Primary Care Provider Referring Provider Specialty: Internal Medicine Address: [address] [place] [address], [facility] Email: Visit Number Visit Number 9 Discharge Summary PT-OP-B Current Condition Start: 07/04/20 19:08 Freq: Status: Active Protocol: Document 07/07/20 08:17 LRN (Rec: 07/07/20 09:04 LRN [id number]) Current Condition History of Current Condition Onset Date March 2020 Current Complaints 03/2020 History of Current Condition Started in March 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 Saw a couple weeks after returning and was given exercises that made it worse. Was given a R thumb splint at night. States it has helped. Prior Treatments and Tests Nighttime thumb splint. 2 yrs ago treatment for tendonitis of R elbow with possibly damage to Biceps. Treatment Goals Patient/Caregiver Goals Pt goal is to get exercises that she can do on her own mostly because of her job and to become painfree. Prior Functional Status Baseline Function- ADL's Independent Baseline Function- Mobility Independent Baseline Function- Work/School No limitations with performing work duties. Baseline Function- Recreation/Hobbies Row, ex @ gym (high intensity) Current Functional Impairments (Reported) Functional Limitations- ADL's Drives with mostly L hand and keeps R hand down resting. 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 Retiring with last day, 08/15/2020 Functional Limitations- Recreation/ Gym is closed. Hobbies Personal Factors Other Personal Factors That May Effect Skin CA Therapy/Recovery PT-OP-C Subjective Start: 07/04/20 19:08 Freq: Status: Active Protocol: Document 09/22/20 09:05 LRN (Rec: 09/22/20 10:28 LRN [id number]) OP-PT Subjective Patient Comments Patient Comments Chemo on the face. R Wrist and thumb still hurts, wearing the wrist splint. Everything else (neck shoulder) feels fine. Used the C. traction. Referrals go away on the due to [facility]. L wrist/ thumb is fine. Patient Questionnaires Quick Dash- Upper Extremity Quick Dash UE Score 34.09 Quick Dash UE Impairment 20 to 39% Impaired (Score 20- 39) OP-PT Pain Assessment Pain Assessment Grid Paper Pain Assessment Grid Completed Yes Location Right Medial Hand Pain Location Details R anterior wrist Intensity 3 Scale Used Numeric (0 - 10) PT-OP-F Manual Assessment Start: 07/04/20 19:08 Freq: Status: Active Protocol: Document 08/21/20 12:46 LRN (Rec: 08/21/20 17:35 LRN [id number]) Manual Assessments Soft Tissue Assessment Soft Tissue Mobility Assessment No palpable pain in R forearm or volar wrist after manual c. tx. No edema in R forearm is visible. R hand ADD Policus muscle weakness and visible atrophy. PT-OP-H Neuro Start: 07/04/20 19:08 Freq: Status: Active Protocol: Document 07/07/20 08:17 LRN (Rec: 07/07/20 09:04 LRN [id number]) Sensation Evaluation Comments Summary Comments Driving or exercising on [employer] has numbness of R hand. Tingling after a while numb. PT-OP-J Posture/Palpation/Skin Start: 07/04/20 19:08 Freq: Status: Active Protocol: Document 07/07/20 08:17 LRN (Rec: 07/07/20 09:04 LRN [id number]) Posture Evaluation Comments Posture Comments Forward rounded shoulders. R thumb atrophy at 1st interosseous. Palpation Assessment Location R hand Palpation Location Snuff Box Palpation Findings Tenderness Palpation Details Extreme tenderness at tendons of anatomical snuff box of R hand. Tenderness of carpel bones closest to CMC joint. PT-OP-K Range of Motion Start: 07/04/20 19:08 Freq: Status: Active Protocol: Document 09/22/20 09:05 LRN (Rec: 09/22/20 10:28 LRN [id number]) Wrist Goniometric Range of Motion Wrist Right Wrist ROM WFL No Flexion Active (degrees) 48 Extension Active (degrees) 10 Left Wrist ROM WFL Yes Flexion Active (degrees) 62 Extension Active (degrees) 38 ROM Limitations Comments After stretching R wrist: Ext was 10 deg's, now 24 deg's . Flex was 48 degs, now 66 deg's . Thumb Goniometric Range of Motion Thumb Left MCP Flexion Active (degrees) 54 MCP Flexion Passive (degrees) 60 IP Flexion Active (degrees) 28 IP Extension Active (degrees) 38 Comments AB is 60 deg's. Right Thumb ROM WFL No MCP Flexion Active (degrees) 50 MCP Flexion Passive (degrees) 68 IP Flexion Active (degrees) 4 IP Extension Active (degrees) 6 Comments PROM: MCP jt increased 60-68 deg's with stretching. AB is 50 deg's PT-OP-L Special Tests Start: 07/04/20 19:08 Freq: Status: Active Protocol: Document 07/07/20 08:17 LRN (Rec: 07/07/20 09:04 LRN [id number]) Special Tests Wrist/Hand Special Tests Lateral Epicondylitis Extended Test Results - Comments Pain at R wrist, not elbow Kay's Test Results + Comments Indicates possible de quervain 's tenosynovitis PT-OP-M Strength Start: 07/04/20 19:08 Freq: Status: Active Protocol: Document 09/22/20 09:05 LRN (Rec: 09/22/20 10:28 LRN [id number]) Hand Functional Tester Typewriters/Pinch Strength Hand Strength Left Functional Tester Typewriters (lbs) 31 Comments 3 trials (lbs): 30, 35, 30 Right Functional Tester Typewriters (lbs) 20 Comments 3 trials (lbs): 22#, 21#, 18# PT-OP-T Assessment and Plan Start: 07/04/20 19:08 Freq: Status: Active Protocol: Document 12/09/20 13:03 LRN (Rec: 12/09/20 13:09 LRN [id number]) Physical Therapy Assessment Goals Five Impairment Decreased function per UE QuickDASH score 43.18 (40<60% impairment) [facility] Healer Goal (LTG) Improve function per UE QuickDASH score of no more than 39. (09/22/20: UE QuickDASH is 34. 09) LTG Duration 10/05/20 (09/22/20: MET GOAL) Four Impairment Decreased R hand strength (20# right, 31# left) Short Term Goal (STG) Improve R dominant hand rock climbing instructor strength by 5#'s. (09/22/20: No change, rock climbing instructor strength is 20# without pain, avg of 3 trials). STG Duration 09/01/20 (12/09/20: Pt unavailable for final assessment) [facility] Goal (LTG) Symmetrical rock climbing instructor strength without R wrist pain. LTG Duration 10/05/20 (12/09/20: Pt unavailable for final assessment) Three Impairment Decreased R wrist mobility Short Term Goal (STG) Improve mobility. STG Duration 08/25/20 (12/09/20: Pt unavailable for final assessment) [facility] Goal (LTG) Normal R wrist mobility equal to the L (Initial: ext: 50 deg's R, 65 deg's L; flex: 60 deg's R, 64 deg's L, UD: 29 deg's R, 50 deg's L, RD: 15 deg's R, 38 deg's L) (09/22/20: ext: 24 deg's R, 65 deg's L; flex: 66 deg's R, 64 deg's L; UD & RD not assessed ) LTG Duration 10/05/20 (12/09/20: Pt unavailable for final assessment) Two Impairment Pt not able to write due to R wrist/thumb pain [facility] Goal (LTG) Pt will be able to hold a pen and write without pain. LTG Duration 10/05/20 (09/22/20: NOT MET) One Impairment Lacks appropriate self care HEP Short Term Goal (STG) Pt started on initial HEP of stretches and self care. HEP ISSUED TO DATE: *Finger tendon glides, *UE radial nerve stretch, *Thumb active & passive ROM: flex, ext, AB, *Intrinsics INSTRUCTIONS: SUP: *Cervical SB stretch, *Pec stretch, *C retraction stretch, *Active C . ext in chair ex. *R Wrist stretch into flex, ext & supination. STG Duration 07/18/20 (09/22/20: MET GOAL) [facility]aler Goal (LTG) Pt educated in a HEP for strengthening and prevention of reoccurance of symptoms. LTG Duration 10/05/20 (12/09/20: NOT MET ) Assessment Summary Assessment Pt was last seen 09/22/20. At that time, the pt had resolution of R neck/shoulder pain with use of home traction unit. Pt was primarily having R wrist/thumb pain with use. Her R wrist/thumb mobility improved with stretching. She was able to perform active ROM of the wrist and thumb without pain if within her painfree ROM. She still had limitations with strength due to pain and soft tissue restrictions from wearing her wrist/thumb brace; therefore further therapy to progress the pt on her ROM & strengthening program would have been beneficial. Pt did not return for last schedules appt on 09/29/20, and no further appointments were scheduled. Pt is being discharged due to lack of attendance. Physical Therapy Plan Discharge Physical Therapy Discharge Reasons No Longer Attending PT Discharge Comments Pt did not complete the rehabilitation program. Thank you for your referral
== END 2020-12-10 07:46 | disposition home or self-care (01) ==
LOC: PHYS 09:00
PROVIDERS: PCP Internal Medicine; Referring Provider Internal Medicine; Visit Provider Internal Medicine
DX: M25.539 Pain in unspecified wrist (principal); S66.411A Strain of intrinsic muscle, fascia and tendon of right thumb at wrist and hand level, initial encounter; M79.641 Pain in right hand; M54.10 Radiculopathy, site unspecified
CPT/HCPCS: 97012; 97035; 97110; 97140; 97161; 97535

== ENCOUNTER → 2020-11-17 06:57 | Outpatient (CLI) | payer OTHER, SELFPAY ==
[2020-06-03 01:38] VITALS: BMI 33.3
[2020-11-17 08:26] LABS: Alanine Aminotransferase 59 IU/L (<35); Albumin 4.5 g/dL (3.5-5.0); Albumin Globulin Ratio 1.6 (1.0-2.8); Alkaline Phosphatase 72 U/L (38-126); Aspartate Aminotransferase 42 IU/L (14-36); BUN Creatinine Ratio 28.8 (6-22); Bilirubin Total 0.4 mg/dL (0.2-1.3); Blood Urea Nitrogen 19 mg/dL (7-17); Calcium 9.6 mg/dL (8.4-10.2); Carbon Dioxide 29 mmol/L (22-32); Chloride 98 mmol/L (98-107); Cholesterol 149 mg/dL (140-199); Estimated Glomerular Filt Rate > 60.0 mL/min (>60); Globulin 2.9 g/dL (1.7-4.1); Glucose 100 mg/dL (80-110); HDL Cholesterol 31 mg/dL (40-60); HEMOLYSIS < 15 (0-50); LDL Cholesterol Calculated 87 mg/dL (<100); Potassium 3.3 mmol/L (3.4-5.1); Sodium 136 mmol/L (137-145); Total Protein 7.4 g/dL (6.3-8.2); Triglycerides 153 mg/dL (35-150)
[2020-11-17 08:37] LABS: Add Manual Diff / Slide Review NO; Basophils Absolute Auto 100 /uL (0-100); Basophils Percent Auto 0.8 % (0-2); Eosinophils Absolute Auto 100 /uL (0-450); Eosinophils Percent Auto 1.5 % (2-4); Hematocrit 36.9 % (36-46); Hemoglobin 13.2 g/dL (12.0-16.0); Lymphocytes Absolute Auto 2500 /uL (1100-4500); Lymphocytes Percent Auto 38.2 % (25-40); Mean Corpuscular HGB Conc 35.7 % (30-36); Mean Corpuscular Hemoglobin 32.2 PG (26-34); Mean Corpuscular Volume 90.2 fL (80-100); Monocytes Absolute Auto 700 /uL (0-900); Monocytes Percent Auto 10.9 % (3-14); Neutrophils Absolute Auto 3200 /uL (1500-7000); Neutrophils Percent Auto 48.6 % (50-75); Platelet Count 294 X10^3/uL (150-400); Red Blood Cell Count 4.09 X10^6/uL (4.0-5.2); Red Cell Distribution Width 11.9 % (11.6-14.8); White Blood Cell Count 6.5 X10^3/uL (4.5-11.0)
[2020-11-17 08:39] LABS: Free T4, Direct Thyroxine 1.17 ng/dL (0.78-2.19)
[2020-11-17 08:40] LABS: Vitamin D 25 Hydroxy (D3) 32.8 ng/mL (30.0-100.0)
[2020-11-17 08:53] LABS: Thyroid Stimulating Hormone 1.85 uIU/mL (0.47-4.68)
[2020-11-17 09:13] LABS: Vitamin B12 354 pg/mL (239-931)
[2020-11-21 10:37] LABS: Aldosterone/Renin Activity Rat 0.7 (0.0-30.0); Plama Renin, LC/MS/MS 10.262 ng/mL/hr (0.167-5.380)
== END ==
PROVIDERS: PCP Family Medicine; Referring Provider Family Medicine; Visit Provider Family Medicine
DX: E03.9 Hypothyroidism, unspecified (principal); E78.5 Hyperlipidemia, unspecified; I10 Essential (primary) hypertension
CPT/HCPCS: 36415; 80053; 80061; 82088; 82306; 82607; 84244; 84439; 84443; 84481; 85025

== ENCOUNTER → 2020-12-04 12:04 | Outpatient (CLI) | payer OTHER, SELFPAY ==
[2020-06-03 01:38] VITALS: BMI 33.3
--- NOTE | 2020-12-04 12:05 | DI.RAD.S_ITS ---
PROCEDURE: XR HAND RT MIN 3V INDICATIONS: pain TECHNIQUE: 3 views of the hand(s) acquired. COMPARISON: None. FINDINGS: Bones: No fractures or dislocations. Carpal bones are normally aligned. No suspicious bony lesions. Mild degenerative joint disease at the radiocarpal joint, triscaphe joint, 1st carpometacarpal joint, 1st metacarpophalangeal joint and multiple interphalangeal joints. Soft tissues: No suspicious soft tissue calcifications. IMPRESSION: No acute osseous abnormalities. Mild degenerative joint disease. Dictated by: Bailey Silva M.D. on 12/04/2020 at 17:30 Approved by: Bailey Silva M.D. on 12/04/2020 at 17:31
== END ==
PROVIDERS: PCP Family Medicine; Referring Provider Family Medicine; Visit Provider Family Medicine
DX: M79.644 Pain in right finger(s) (principal); M18.11 Unilateral primary osteoarthritis of first carpometacarpal joint, right hand; M19.041 Primary osteoarthritis, right hand
CPT/HCPCS: 73130

== ENCOUNTER → 2020-12-08 11:33 | Outpatient (CLI) | payer OTHER, SELFPAY ==
[2020-06-03 01:38] VITALS: BMI 33.3
--- NOTE | 2020-12-08 11:35 | DI.MG.S_ITS ---
BILATERAL DIGITAL SCREENING MAMMOGRAM 3D/2D WITH CAD: 12/08/2020 CLINICAL: Routine screening. Family history of breast cancer. Comparison is made to exams dated: 01/01/2020 mammogram, 12/08/2019 mammogram - [facility], 09/28/2018 mammogram - [facility], 06/02/2020 ultrasound - [facility], and 08/25/2017 mammogram - [facility]. The tissue of both breasts is predominantly fatty. Current study was also evaluated with a Computer Aided Detection (CAD) system. There is a benign cyst in the left breast. No significant masses, calcifications, or other findings are seen in either breast. There has been no significant interval change. IMPRESSION: BENIGN There is no mammographic evidence of malignancy. A 1 year screening mammogram is recommended. This exam was interpreted at Station ID: [id number]. NOTE: For mammograms, a report in lay terms will be sent to the patient. Approximately 15% of breast malignancies will not be visualized mammographically. In the management of a palpable breast mass, a negative mammogram must not discourage biopsy of a clinically suspicious lesion. Electronically Signed By: Go mattson/avelino:12/08/2020 15:35:26 letter sent: Normal Exam ACR BI-RADS Category 2: Benign Finding(s) [id number]
== END ==
PROVIDERS: PCP Family Medicine; Referring Provider Family Medicine; Visit Provider Family Medicine
DX: Z12.31 Encounter for screening mammogram for malignant neoplasm of breast (principal); Z80.3 Family history of malignant neoplasm of breast
CPT/HCPCS: 77063; 77067

== ENCOUNTER → 2021-08-19 07:24 | Outpatient (CLI) | payer OTHER, SELFPAY ==
[2020-06-03 01:38] VITALS: BMI 33.3
[2021-08-19 08:54] LABS: Add Manual Diff / Slide Review NO; Basophils Absolute Auto 0 /uL (0-100); Basophils Percent Auto 0.7 % (0-2); Eosinophils Absolute Auto 100 /uL (0-450); Eosinophils Percent Auto 1.3 % (2-4); Hematocrit 39.6 % (36-46); Hemoglobin 13.6 g/dL (12.0-16.0); Lymphocytes Absolute Auto 2000 /uL (1100-4500); Lymphocytes Percent Auto 29.7 % (25-40); Mean Corpuscular HGB Conc 34.4 % (30-36); Mean Corpuscular Hemoglobin 31.2 PG (26-34); Mean Corpuscular Volume 90.6 fL (80-100); Monocytes Absolute Auto 600 /uL (0-900); Monocytes Percent Auto 8.8 % (3-14); Neutrophils Absolute Auto 4100 /uL (1500-7000); Neutrophils Percent Auto 59.5 % (50-75); Platelet Count 319 X10^3/uL (150-400); Red Blood Cell Count 4.37 X10^6/uL (4.0-5.2); Red Cell Distribution Width 12.6 % (11.6-14.8); White Blood Cell Count 6.8 X10^3/uL (4.5-11.0)
[2021-08-19 09:10] LABS: Alanine Aminotransferase 27 IU/L (<35); Albumin 4.7 g/dL (3.5-5.0); Albumin Globulin Ratio 1.6 (1.0-2.8); Alkaline Phosphatase 56 U/L (38-126); Aspartate Aminotransferase 29 IU/L (14-36); BUN Creatinine Ratio 17.8 (6-22); Bilirubin Total 0.5 mg/dL (0.2-1.3); Blood Urea Nitrogen 16 mg/dL (7-17); Calcium 9.5 mg/dL (8.4-10.2); Carbon Dioxide 30 mmol/L (22-32); Chloride 97 mmol/L (98-107); Cholesterol 191 mg/dL (140-199); Estimated Glomerular Filt Rate > 60.0 mL/min (>60); Globulin 2.9 g/dL (1.7-4.1); Glucose 102 mg/dL (80-110); HDL Cholesterol 43 mg/dL (40-60); HEMOLYSIS < 15 (0-50); LDL Cholesterol Calculated 113 mg/dL (<100); Sodium 135 mmol/L (137-145); Total Protein 7.6 g/dL (6.3-8.2); Triglycerides 177 mg/dL (35-150)
[2021-08-19 09:25] LABS: Free T4, Direct Thyroxine 0.95 ng/dL (0.78-2.19)
== END ==
PROVIDERS: PCP Family Medicine; Referring Provider Family Medicine; Visit Provider Family Medicine
DX: I10 Essential (primary) hypertension (principal); E78.2 Mixed hyperlipidemia; E66.09 Other obesity due to excess calories; Z68.31 Body mass index [BMI] 31.0-31.9, adult; E03.9 Hypothyroidism, unspecified
CPT/HCPCS: 36415; 80053; 80061; 84439; 84443; 84481; 85025

== ENCOUNTER → 2021-11-09 10:56 | Outpatient (CLI) | payer MEDICARE, OTHER, SELFPAY ==
[2020-06-03 01:38] VITALS: BMI 33.3
[2021-11-09 14:01] LABS: Free T3, Triiodothyronine Free 3.27 pg/mL (2.77-5.27); Free T4, Direct Thyroxine 1.33 ng/dL (0.78-2.19)
[2021-11-09 14:15] LABS: Thyroid Stimulating Hormone 2.32 uIU/mL (0.47-4.68)
== END ==
PROVIDERS: PCP Family Medicine; Referring Provider Family Medicine; Visit Provider Family Medicine
DX: I10 Essential (primary) hypertension (principal); E03.9 Hypothyroidism, unspecified; E78.2 Mixed hyperlipidemia
CPT/HCPCS: 36415; 84439; 84443; 84481

== ENCOUNTER → 2022-01-11 10:41 | Outpatient (CLI) | payer MEDICARE, OTHER, SELFPAY ==
[2020-06-03 01:38] VITALS: BMI 33.3
--- NOTE | 2022-01-11 | DI.MG.S_ITS ---
BILATERAL DIGITAL SCREENING MAMMOGRAM 3D/2D WITH CAD: 01/11/2022 CLINICAL: Routine screening. Family history of breast cancer. Comparison is made to exams dated: 12/08/2020 mammogram, 01/01/2020 mammogram, 12/08/2019 mammogram - [facility], 09/28/2018 mammogram, and 08/25/2017 mammogram - [facility]. There are scattered fibroglandular elements in both breasts. Current study was also evaluated with a Computer Aided Detection (CAD) system. There are benign post operative findings in the left breast. No significant masses, calcifications, or other findings are seen in either breast. There has been no significant interval change. IMPRESSION: BENIGN There is no mammographic evidence of malignancy. A 1 year screening mammogram is recommended. Based on the Tyrer Cuzick model (a risk assessment model) the patient's lifetime risk is 4.7% and her 10 year risk is 2.3%. According to the ACR, ACS, and NCCN guidelines, an annual breast MRI exam along with mammogram is recommended if the patient's lifetime risk is 20% or greater. This exam was interpreted at Station ID: [id number]. NOTE: For mammograms, a report in lay terms will be sent to the patient. Approximately 15% of breast malignancies will not be visualized mammographically. In the management of a palpable breast mass, a negative mammogram must not discourage biopsy of a clinically suspicious lesion. Electronically Signed By: Go mattson/avelino:01/11/2022 13:12:35 letter sent: Normal Exam ACR BI-RADS Category 2: Benign Finding(s) 3342F
== END ==
PROVIDERS: PCP Family Medicine; Referring Provider Family Medicine; Visit Provider Family Medicine
DX: Z12.31 Encounter for screening mammogram for malignant neoplasm of breast (principal); Z80.3 Family history of malignant neoplasm of breast
CPT/HCPCS: 77063; 77067

== ENCOUNTER → 2022-12-20 17:25 | Outpatient (CLI) | payer MEDICARE, OTHER, SELFPAY ==
[2022-12-20 14:07] VITALS: BMI 33.3
[2022-12-20 18:23] LABS: Appearance Urine UA CLEAR; Bilirubin Urine UA NEGATIVE (NEGATIVE); Color Urine UA YELLOW; Glucose Urine UA NEGATIVE (Negative); Ketones Urine UA NEGATIVE (NEGATIVE); Leukocyte Esterase Urine UA TRACE (NEGATIVE); Nitrite Urine UA NEGATIVE (Negative); Occult Blood Urine UA NEGATIVE (Negative); Protein Urine UA NEGATIVE (Negative); Specific Gravity Urine UA 1.015 (1.000-1.035); Urobilinogen Urine UA 0.2 E.U./dL (0.2)
[2022-12-20 18:51] LABS: Bacteria Urine None Seen; Culture Indicated Urine Cult Not Indicated; RBC Urine None Seen (0-5/HPF); Squamous Epithelial Cell Urine None Seen (0-5/HPF); WBC Urine 0-1/HPF (0-5/HPF)
== END ==
PROVIDERS: PCP Family Medicine; Referring Provider Family Medicine; Visit Provider Family Medicine
DX: R30.0 Dysuria (principal); R35.0 Frequency of micturition
CPT/HCPCS: 81001

== ENCOUNTER → 2023-02-01 14:18 | Outpatient (CLI) | payer MEDICARE, OTHER, SELFPAY ==
[2022-12-20 14:07] VITALS: BMI 33.3
--- NOTE | 2023-02-01 | DI.MG.S_ITS ---
BILATERAL DIGITAL SCREENING MAMMOGRAM 3D/2D WITH CAD: 02/01/2023 CLINICAL: Routine screening. Family history of breast cancer. Comparison is made to exams dated: 01/11/2022 mammogram, 12/08/2020 mammogram, 01/01/2020 mammogram, 12/08/2019 mammogram - [facility], and 09/28/2018 mammogram - [facility]. There are scattered areas of fibroglandular density in both breasts (category b / 25%-50% glandular tissue). Current study was also evaluated with a Computer Aided Detection (CAD) system. There are benign post operative findings in the left breast. No significant masses, calcifications, or other findings are seen in either breast. There has been no significant interval change. IMPRESSION: BENIGN There is no mammographic evidence of malignancy. A 1 year screening mammogram is recommended. Based on the Tyrer Cuzick model (a risk assessment model) the patient's lifetime risk is 4.5% and her 10 year risk is 2.3%. According to the ACR, ACS, and NCCN guidelines, an annual breast MRI exam along with mammogram is recommended if the patient's lifetime risk is 20% or greater. This exam was interpreted at Station ID: [id number]. NOTE: For mammograms, a report in lay terms will be sent to the patient. Approximately 15% of breast malignancies will not be visualized mammographically. In the management of a palpable breast mass, a negative mammogram must not discourage biopsy of a clinically suspicious lesion. Electronically Signed By: Go mattson/avelino:02/01/2023 21:44:02 letter sent: Normal Exam ACR BI-RADS Category 2: Benign Finding(s) 3342F
== END ==
PROVIDERS: PCP Family Medicine; Referring Provider Family Medicine; Visit Provider Family Medicine
DX: Z12.31 Encounter for screening mammogram for malignant neoplasm of breast (principal); Z80.3 Family history of malignant neoplasm of breast
CPT/HCPCS: 77063; 77067

== ENCOUNTER → 2023-05-18 08:01 | Outpatient (CLI) | payer MEDICARE, OTHER, SELFPAY ==
[2022-12-20 14:07] VITALS: BMI 33.3
[2023-05-18 09:32] LABS: Hemoglobin A1C% w Est Avg Glu 5.8 % (4.0-6.0)
[2023-05-18 09:51] LABS: Alanine Aminotransferase 123 IU/L (<35); Albumin 4.4 g/dL (3.5-5.0); Albumin Globulin Ratio 1.6 (1.0-2.8); Alkaline Phosphatase 55 U/L (38-126); Aspartate Aminotransferase 76 IU/L (14-36); BUN Creatinine Ratio 24.3 (6-22); Bilirubin Total 0.7 mg/dL (0.2-1.3); Blood Urea Nitrogen 18 mg/dL (7-17); Carbon Dioxide 26 mmol/L (22-32); Chloride 98 mmol/L (98-107); Cholesterol 158 mg/dL (140-199); Estimated Glomerular Filt Rate > 60 mL/min (>60); Globulin 2.7 g/dL (1.7-4.1); Glucose 109 mg/dL (80-110); HDL Cholesterol 36 mg/dL (40-60); HEMOLYSIS < 15 (0-50); LDL Cholesterol Calculated 93 mg/dL (<100); Potassium 3.6 mmol/L (3.4-5.1); Sodium 134 mmol/L (137-145); Total Protein 7.1 g/dL (6.3-8.2); Triglycerides 146 mg/dL (35-150)
[2023-05-18 09:53] LABS: Add Manual Diff / Slide Review NO; Basophils Absolute Auto 100 /uL (0-100); Basophils Percent Auto 0.7 % (0-2); Eosinophils Absolute Auto 200 /uL (0-450); Eosinophils Percent Auto 1.7 % (2-4); Hemoglobin 13.6 g/dL (12.0-16.0); Lymphocytes Absolute Auto 1900 /uL (1100-4500); Lymphocytes Percent Auto 19.8 % (25-40); Mean Corpuscular HGB Conc 35.7 % (30-36); Mean Corpuscular Hemoglobin 32.7 PG (26-34); Mean Corpuscular Volume 91.5 fL (80-100); Monocytes Absolute Auto 900 /uL (0-900); Monocytes Percent Auto 9.9 % (3-14); Neutrophils Absolute Auto 6500 /uL (1500-7000); Neutrophils Percent Auto 67.9 % (50-75); Platelet Count 298 X10^3/uL (150-400); Red Blood Cell Count 4.15 X10^6/uL (4.0-5.2); Red Cell Distribution Width 12.2 % (11.6-14.8); White Blood Cell Count 9.5 X10^3/uL (4.5-11.0)
[2023-05-18 10:12] LABS: TSH w/ Reflex to FT4 3.73 uIU/mL (0.47-4.68)
== END ==
PROVIDERS: PCP Family Medicine; Referring Provider Family Medicine; Visit Provider Family Medicine
DX: I10 Essential (primary) hypertension (principal); Z79.899 Other long term (current) drug therapy; E78.2 Mixed hyperlipidemia; E03.9 Hypothyroidism, unspecified; E66.09 Other obesity due to excess calories; Z68.31 Body mass index [BMI] 31.0-31.9, adult
CPT/HCPCS: 36415; 80053; 80061; 83036; 84443; 85025

== ENCOUNTER → 2023-05-23 09:28 | Outpatient (CLI) | payer MEDICARE, OTHER, SELFPAY ==
[2022-12-20 14:07] VITALS: BMI 33.3
[2023-05-23 10:48] LABS: Creatinine Urine Random 90.2 mg/dL
[2023-05-23 10:53] LABS: Microalbumi Creatinin Ratio Ur 9.9 ug/mg CR (<30); Microalbumin Urine Random 0.9 mg/dL (0-1.6)
== END ==
PROVIDERS: PCP Family Medicine; Referring Provider Family Medicine; Visit Provider Family Medicine
DX: I10 Essential (primary) hypertension (principal); E78.2 Mixed hyperlipidemia; E03.9 Hypothyroidism, unspecified; E66.09 Other obesity due to excess calories; Z68.31 Body mass index [BMI] 31.0-31.9, adult; Z79.899 Other long term (current) drug therapy
CPT/HCPCS: 82043; 82570

== ENCOUNTER 2023-10-25 10:38 | Day surgery (SDC) | payer OTHER, SELFPAY ==
[2022-12-20 14:07] VITALS: BMI 33.3
[2023-10-25 11:02] VITALS: BP 152/76; PULSE 60; RESP 16; TEMP 35.9; O2SAT 96
[2023-10-25] MEDS: LACTATED RINGERS 1,000 ML 42 ML IV (11:09)
[2023-10-25 11:40] VITALS: BP 153/77; PULSE 70; RESP 18; TEMP 37.1; O2SAT 95
[2023-10-25 11:46] VITALS: BP 148/75; PULSE 67; RESP 15; TEMP 37.1; O2SAT 96
[2023-10-25 11:52] VITALS: BP 149/71; PULSE 61; RESP 17; TEMP 37; O2SAT 98
--- NOTE | 2023-10-25 12:27 | PM.OP.COLON ---
Operative Date/Time/Diagnoses Date of procedure: 10/25/23 Time of procedure: 12:27 Pre-op diagnosis: [address] [address] EGD & Colonoscopy Note Patient: Telma Soto MR#: [id number] : 03/17/1959 Acct:[id number] Age/Sex: 64 / F Admit Date: 10/25/23 Provider: Jose Manuel Busby MD Operative Date/Time/Diagnoses Date of procedure: 10/25/23 Time of procedure: 11:17 Pre-op diagnosis: Colorectal screening Chronic GERD Procedure & Clinicians Study performed: Screening esophagogastroduodenoscopy and colonoscopy Indications: Chronic GERD Colorectal screening Surgeon: Jose Manuel Busby Procedure Notes Procedure in detail: The history and physical was performed/updated and the patient is ASA class is 2. The procedure was discussed in detail with the patient. Potential risks complications including infection, bleeding, missed diagnosis, perforation, need for surgery, and were explained. Their questions were answered and informed consent was obtained. Patient placed in left lateral decubitus position. Time out was performed. Procedural sedation was administered by Anesthesia. A bite block was placed. the scope was inserted into the mouth and advanced through the esophagus and into the stomach. the pylorus was intubated and the duodenum was examined to the 2nd portion.. The scope was retroflexed within the stomach. The stomach was then decompressed and scope pulled back to the GE junction. The scope was then removed Examination began with a thorough inspection of the perianal area there was no evidence of fissures, fistulae, external hemorrhoids or cutaneous malignancy. The colonoscopy scope was then placed into the anal canal and was advanced to the cecum, which was identified by the ileocecal valve, the appendiceal orifice and the confluence of the taenia. The scope was then slowly withdrawn examining colon thoroughly in all directions, irrigating it of any residual stool. FINDINGS -unremarkable upper endoscopy. Normal stomach duodenum and esophagus -normal colonoscopy. No masses polyps or inflammation. Normal colorectal anastomosis The patient tolerated the procedure well. They will be discharged once criteria are met. The prep was of fair quality. The withdrawl time was 6 minutes. Specimen(s): none sent Impression: Normal upper and lower endoscopy. Post-procedure Recommendations: Colonscopy in 10 years Disposition: same day surgery
--- NOTE | 2023-10-25 12:28 | P.HP_ITS ---
History of Present Illness History of Present Illness Chief complaint: EGD & Colonoscopy w/poss bx's Narrative: [address] [address] History & Physical Report Patient: Telma Soto MR#: [id number] : 03/17/1959 Acct:[id number] Age/Sex: 64 / F Admit Date: 10/25/23 Provider: Jose Manuel Busby MD History of Present Illness History of Present Illness Date Patient Seen: 10/25/23 Time Patient Seen: 11:15 Chief complaint: SDC Narrative: 64-year-old woman with chronic GERD here for screening esophagogastroduodenoscopy and colonoscopy. Takes 40 mg of omeprazole daily recently having breakthrough episodes. No family history of intestinal malignancy. [facility] Medical History (Updated 10/25/23 @ 11:17 by Jose Manuel Busby MD) B12 deficiency Osteopenia Age-related osteoporosis without current pathological fracture Mixed hyperlipidemia Menopausal syndrome Primary osteoarthritis involving multiple joints Chronic, continuous use of opioids Anemia Fatigue Vitamin D deficiency CRPS (complex regional pain syndrome) Anesthesia complication Anxiety Easy bruisability Miscarriage Heartburn CRPS (complex regional pain syndrome type I) Surgical History History of total left knee replacement (09/24/21) History of bunionectomy of right great toe Hx of arthroscopy of left knee Hx of laminectomy History of arthroscopy of right shoulder Hx of dilation and curettage History of hysterectomy Social History details: , 3 kids, 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 household members: spouse and family Smoking Status: Former smoker alcohol intake: former Meds Home Medications and Allergies Home Medications Medication Instructions Recorded Confirmed Type acetaminophen 500 mg tablet 1,000 mg PO Q6H PRN Pain 07/19/23 08/30/23 History ibuprofen 200 mg tablet (Motrin IB) 400 mg PO Q6H PRN Pain 07/19/23 08/30/23 History duloxetine 60 mg capsule,delayed 60 mg PO BID #180 caps 08/30/23 08/30/23 Rx release estradiol 1 mg tablet (Estrace) 1 mg PO DAILY #90 tabs 08/30/23 08/30/23 Rx hydromorphone 2 mg tablet 2 mg PO QID #90 tabs 10/14/23 Rx morphine 15 mg tablet,extended 15 mg PO TID #90 tabs 10/24/23 Rx release Allergies Allergy/AdvReac Type Severity Reaction Status Date / Time codeine Allergy Severe Itching, Verified 08/30/23 12:32 bad headaches hydrocodone Allergy Severe Anaphylaxis Verified 08/30/23 12:32 oxycodone Allergy Severe Anaphylaxis Verified 08/30/23 12:32 propoxyphene Allergy Severe Anaphylaxis Verified 08/30/23 12:32 [From Darvocet-N] pregabalin [From Lyrica CR] Allergy Intermediate Swelling, Verified 08/30/23 12:32 increases CRPS penicillin V Allergy Mild itchy Verified 08/30/23 12:32 Penicillins Allergy Unknown Rash Verified 08/30/23 12:32 Exam Narrative Exam Narrative: General adult man alert oriented no acute distress Chest nonlabored respiration Extremities warm well perfused Assessment & Plan Assessment and plan (1) Screening for colorectal cancer: Status: Acute (2) Heartburn: Status: Acute Assessment & Plan narrative: Screening colonoscopy and esophagogastroduodenoscopy indicated. Technical details were discussed. Risks, benefits, alternatives explained. Risks including but not limited to myocardial infarction, aspiration, bleeding, pain, missed lesion, incomplete examination, need for further radiographic studies, i ntestinal injury, and need for major abdominal surgery were discussed. All questions were answered to their satisfaction, and they are in agreement with this plan. [facility] Medical History (Updated 05/30/23 @ 14:17 by Mark Gant DO) Transaminitis Dysuria Urinary frequency Bilateral chronic knee pain Arthralgia of hands, bilateral Oral thrush Thigh cramp Vision changes Sinusitis Hordeolum externum (stye) Upper extremity somatic dysfunction Segmental and somatic dysfunction of rib cage Wears glasses Hearing loss Rosacea (~2015) Actinic keratosis (~2012) Asthma Anxiety Restless leg syndrome Chronic back pain (~2016) Ankle pain (~2004) Vertigo (~2016) Tinnitus (~2016) Recurrent sinusitis (~1974) GERD (gastroesophageal reflux disease) Chronic diarrhea Pain of right thumb Resistant hypertension Hyperlipidemia (~1996) Hypothyroidism (acquired) (~1996) Exercise-induced asthma Hypothyroidism Hypertension (~1996) Excessive daytime sleepiness Snoring Primary insomnia Obstructive sleep apnea syndrome Obesity Surgical History Anesthesia History of sinus surgery (~2018) History of ankle surgery (~2012) S/P removal of left ovary (~1986) History of appendectomy (~1990) History of hysterectomy (~1990) Skin cancer (~1985) Family History Father Myocardial infarction Cancer History of heart disease Hypertension Mental health problem Mother Cancer Mental health problem Brother Atrial fibrillation History of heart disease Hypertension Sister Atrial fibrillation Myocardial infarction Squamous cell skin cancer History of heart disease Hypertension Grandfather Cancer Grandmother History of heart disease Hypertension Mental health problem Stroke Grandfather Cancer Grandmother Diabetes mellitus History of heart disease Social History marital status: household members: spouse lives independently: Yes caregiver/support person: No education level: college occupational status: other 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 history: over 6 months ago Smoking Status: Former smoker alcohol intake: current Meds Home Medications and Allergies Home Medications Medication Instructions Recorded Confirmed Type fexofenadine 180 mg tablet 180 mg PO QDAY ##0 06/13/16 10/25/23 History (Sherry Allergy) Resmed Airsense CPAP #1 ea 11/14/18 05/25/23 History albuterol sulfate 90 mcg/actuation 2 puff inhalation Q6H PRN asthma 08/25/21 10/25/23 Rx aerosol inhaler #8.5 grams fluticasone propionate 50 1 spray intranasal QDAY #16 grams 08/25/21 10/25/23 Rx mcg/actuation nasal spray,suspension (Flonase Allergy Relief) omeprazole 20 mg capsule,delayed 20 mg PO DAILY #90 caps 08/25/21 10/25/23 Rx release trazodone 100 mg tablet 100 mg PO BEDTIME PRN sleep #90 08/25/21 10/25/23 Rx tabs spironolactone 25 mg tablet 50 mg PO DAILY 11/04/21 10/25/23 History budesonide 0.25 mg/2 mL suspension 0.25 mg (2 mL) inhalation DAILY 11/09/21 10/25/23 Rx for nebulization (Pulmicort) #60 mL labetalol 100 mg tablet 100 mg PO BID #60 tabs 09/21/22 10/25/23 Rx losartan 50 mg tablet 50 mg PO DAILY #30 tabs 09/21/22 10/25/23 Rx levothyroxine 175 mcg tablet 175 mcg PO DAILY Hypothyroid 10/08/22 10/25/23 History chlorthalidone 25 mg tablet 25 mg PO DAILY 11/03/22 10/25/23 History cyclobenzaprine 10 mg tablet 10 mg PO TID PRN muscle spasm #60 05/30/23 05/30/23 Rx tabs sodium,potassium,mag sulfates 17.5 See Rx Instructions PO .COMPLEX 10/11/23 Rx gram-3.13 gram-1.6 gram oral soln #354 mL (Suprep Bowel Prep Kit) Allergies Allergy/AdvReac Type Severity Reaction Status Date / Time gluten Allergy Severe Agitated Verified 10/25/23 10:46 codeine [CODEINE] Allergy Mild Rash Verified 10/25/23 10:58 Exam Vital Signs (past 8 hours): - 10/25/23 11:02 10/25/23 11:40 10/25/23 11:46 Temperature 96.7 F L 98.8 F 98.7 F Pulse Rate 60 70 67 Respiratory Rate 16 18 15 Blood Pressure 152/76 H 153/77 H 148/75 H Pulse Oximetry 96 95 96 Oxygen Delivery Method Room Air Room Air Room Air 10/25/23 11:52 Temperature 98.6 F Pulse Rate 61 Respiratory Rate 17 Blood Pressure 149/71 H Pulse Oximetry 98 Oxygen Delivery Method Room Air Oxygen Delivery Method Room Air
== END 2023-10-25 12:06 | disposition home or self-care (01) ==
PROVIDERS: PCP Family Medicine; Referring Provider Surgery; Visit Provider Surgery
PROC: 0DJ08ZZ Inspection of Upper Intestinal Tract, Via Natural or Artificial Opening Endoscopic (ICD-10-PCS; CPT 45378; principal; 2023-10-25 11:45)
PROC: 0DJD8ZZ Inspection of Lower Intestinal Tract, Via Natural or Artificial Opening Endoscopic (ICD-10-PCS; CPT 45378; 2023-10-25 11:45)
DX: Z12.11 Encounter for screening for malignant neoplasm of colon (principal); K21.9 Gastro-esophageal reflux disease without esophagitis
CPT/HCPCS: 45378; 43235; J2704

== ENCOUNTER → 2023-11-03 08:27 | Outpatient (CLI) | payer OTHER, SELFPAY ==
[2022-12-20 14:07] VITALS: BMI 33.3
== END ==
LOC: LAB 08:29
PROVIDERS: PCP Family Medicine; Referring Provider Dermatology; Visit Provider Dermatology
DX: R21 Rash and other nonspecific skin eruption (principal)
CPT/HCPCS: 36415; 86038

== ENCOUNTER → 2023-11-29 07:06 | Outpatient (CLI) | payer MEDICARE, OTHER, SELFPAY ==
[2022-12-20 14:07] VITALS: BMI 33.3
[2023-11-29 08:14] LABS: Add Manual Diff / Slide Review NO; Basophils Absolute Auto 0 /uL (0-100); Basophils Percent Auto 0.6 % (0-2); Eosinophils Absolute Auto 100 /uL (0-450); Eosinophils Percent Auto 1.4 % (2-4); Hematocrit 34.5 % (36-46); Hemoglobin 12.4 g/dL (12.0-16.0); Lymphocytes Absolute Auto 1400 /uL (1100-4500); Mean Corpuscular HGB Conc 35.9 % (30-36); Mean Corpuscular Hemoglobin 32.1 PG (26-34); Mean Corpuscular Volume 89.3 fL (80-100); Monocytes Absolute Auto 700 /uL (0-900); Monocytes Percent Auto 10.5 % (3-14); Neutrophils Absolute Auto 4100 /uL (1500-7000); Neutrophils Percent Auto 65.5 % (50-75); Platelet Count 306 X10^3/uL (150-400); Red Blood Cell Count 3.86 X10^6/uL (4.0-5.2); Red Cell Distribution Width 12.4 % (11.6-14.8); White Blood Cell Count 6.3 X10^3/uL (4.5-11.0)
[2023-11-29 08:31] LABS: Alanine Aminotransferase 37 IU/L (<35); Albumin 4.7 g/dL (3.5-5.0); Alkaline Phosphatase 94 U/L (38-126); Aspartate Aminotransferase 36 IU/L (14-36); BUN Creatinine Ratio 21.4 (6-22); Bilirubin Total 0.7 mg/dL (0.2-1.3); Blood Urea Nitrogen 15 mg/dL (7-17); Calcium 9.6 mg/dL (8.4-10.2); Carbon Dioxide 28 mmol/L (22-32); Chloride 97 mmol/L (98-107); Cholesterol 136 mg/dL (140-199); Estimated Glomerular Filt Rate > 60 mL/min (>60); Globulin 2.3 g/dL (1.7-4.1); Glucose 106 mg/dL (80-110); HDL Cholesterol 38 mg/dL (40-60); HEMOLYSIS < 15 (0-50); LDL Cholesterol Calculated 84 mg/dL (<100); Sodium 134 mmol/L (137-145); Triglycerides 71 mg/dL (35-150)
[2023-11-29 08:57] LABS: TSH w/ Reflex to FT4 0.61 uIU/mL (0.47-4.68)
== END ==
PROVIDERS: PCP Family Medicine; Referring Provider Family Medicine; Visit Provider Family Medicine
DX: R74.01 Elevation of levels of liver transaminase levels (principal); E78.5 Hyperlipidemia, unspecified; E03.9 Hypothyroidism, unspecified; I10 Essential (primary) hypertension
CPT/HCPCS: 36415; 80053; 80061; 84443; 85025

== ENCOUNTER → 2024-03-30 08:05 | Outpatient (CLI) | payer OTHER, SELFPAY ==
[2022-12-20 14:07] VITALS: BMI 33.3
--- NOTE | 2024-03-30 08:06 | DI.ECHO.S_ITS ---
+ + [place] [facility] : : [facility] : : [place] : : [place] : : [address] : : Phone: [phone] Echocardiogram Report + + :Name: YULIANA REINOSO Study Date: 03/30/2024 Height: 65 in : :[facility] ReadingLocation: Weight: 164 lb : : Gender: Female BSA: 1.8 m2 : :: 1955 Age: 68 yrs BP: 167/89 mmHg: :Reason For Study: SHORTNESS OF BREATH : :Ordering Physician: : :LEIGH HAMILTON Performed By: Wicho English : :Referring: LEIGH HAMILTON : + + Interpretation Summary The ejection fraction is estimated to be 60-65%. Diastolic parameters suggest probable normal left ventricular diastolic function and normal filling pressures. The right ventricle is normal in size and function. There is moderate mitral regurgitation. There is mild to moderate tricuspid regurgitation. The right ventricular systolic pressure is estimated to be at least 35 mmHg based on an estimated right atrial pressure of 3 mm Hg. Compared to the prior study dated 06/03/2020, there has been a slight increase in the mitral regurgitation. Procedure: A two-dimensional transthoracic echocardiogram with color flow and Doppler was performed. The study quality was technically good. Comparison is made with the echocardiogram of 06/03/2020. The patient was in normal sinus rhythm during the exam. Left Ventricle: The left ventricle is normal in size. There is normal left ventricular wall thickness. There is no ventricular septal defect visualized. The ejection fraction is estimated to be 60-65%. There are no focal wall motion abnormalities. Diastolic parameters suggest probable normal left ventricular diastolic function and normal filling pressures. Right Ventricle: The right ventricle is normal in size and function. Atria: The left atrial size is normal. Right atrial size is normal. There is no Doppler evidence for an atrial septal defect. Mitral Valve: The mitral valve is normal. There is moderate mitral regurgitation. Aortic Valve: The aortic valve is trileaflet. The aortic valve opens well. There is no aortic valve stenosis. No aortic regurgitation is present. Tricuspid Valve: The tricuspid valve is normal in structure and function. There is mild to moderate tricuspid regurgitation. The right ventricular systolic pressure is estimated to be at least 35 mmHg based on an estimated right atrial pressure of 3 mm Hg. Pulmonic Valve: The pulmonic valve is not well visualized. The pulmonic valve is not well seen, but is grossly normal. There is trace pulmonic regurgitation. Great Vessels: The aortic root is normal size. The dimensions of the ascending aorta are normal. The pulmonary artery is normal size. The IVC is of normal diameter and collapses greater than 50% with a sniff. This suggests a low right atrial pressure of 3 mm Hg. Pericardium/ Pleura There is no pericardial effusion. There is no pleural effusion. MMode/2D Measurements & Calculations LVIDd: 4.7 cm LVOT diam: 1.9 cm LVIDs: 3.2 cm Ao root diam: 2.9 cm FS: 33.4 % asc Aorta Diam: 2.9 cm EPSS: 0.48 cm Ao Arch Diam (Prox Trans): 2.0 cm IVSd: 0.78 cm LVPWd: 0.82 cm LV lion. diameter/BSA (cm/m^2): 2.6 LV sys. diameter/BSA (cm/m^2): 1.7 LA A2 area: 18.4 cm2 RA long axis: 5.3 cm LA A4 area: 19.6 cm2 RA area: 15.3 cm2 LA length (vol): 5.8 cm RA vol: 37.2 ml LA vol: 53.1 ml RA : 20.4 ml/m2 LA vol index: 29.2 ml/m2 IVC diam: 2.0 cm RVD1 (basal): 2.8 cm RVD2 (mid): 2.6 cm TAPSE: 2.7 cm Doppler Measurements & Calculations Ao V2 max: 149.6 cm/sec LVOT Max Ric: 124.1 cm/sec Ao V2 mean: 102.5 cm/sec LV V1 max P.2 mmHg Ao max P.9 mmHg LV V1 VTI: 29.3 cm Ao mean P.8 mmHg ELYSSA(I,D): 2.2 cm2 Ao V2 VTI: 39.0 cm ELYSSA(V,D): 2.4 cm2 sev ratio: 0.75 ELYSSA indexed to BSA (cm^2/m^2): 1.2 MV E max ric: 96.7 cm/sec TR max ric: 273.4 cm/sec MV A max ric: 106.4 cm/sec TR max P.9 mmHg MV E/A: 0.91 PA V2 max: 80.1 cm/sec Med Peak E' Ric: 6.7 cm/sec PA V2 mean: 55.7 cm/sec E/E' med: 14.4 PA mean P.4 mmHg Lat Peak E' Ric: 8.6 cm/sec PA pr(Accel): 22.5 mmHg E/E' lat: 11.2 E/e' average: 12.8 MV dec time: 0.22 sec MR ERO: 0.14 cm2 MR PISA: 2.4 cm2 SV(LVOT): 85.4 ml MR flow rate: 89.2 cm3/sec MR PISA radius: 0.62 cm Reading Physician:11:41 AM
== END ==
PROVIDERS: PCP Family Medicine; Referring Provider Family Medicine; Visit Provider Family Medicine
DX: R06.02 Shortness of breath (principal); I08.1 Rheumatic disorders of both mitral and tricuspid valves
CPT/HCPCS: 93306

== ENCOUNTER → 2024-06-11 13:34 | Outpatient (CLI) | payer OTHER, SELFPAY ==
[2022-12-20 14:07] VITALS: BMI 33.3
[2024-06-11 14:14] LABS: Albumin 4.6 g/dL (3.5-5.0); BUN Creatinine Ratio 20.6 (6-22); Blood Urea Nitrogen 14 mg/dL (7-17); Calcium 9.4 mg/dL (8.4-10.2); Carbon Dioxide 24 mmol/L (22-32); Chloride 101 mmol/L (98-107); Estimated Glomerular Filt Rate > 60 mL/min (>60); Glucose 97 mg/dL (80-110); HEMOLYSIS < 15 (0-50); Phosphorous 3.5 mg/dL (2.8-4.1); Potassium 4.4 mmol/L (3.4-5.1); Sodium 134 mmol/L (137-145)
== END ==
LOC: LAB 13:37
PROVIDERS: Family Provider Family Medicine; PCP Family Medicine; Referring Provider Student in an Organized Health Care Education/Training Program; Visit Provider Student in an Organized Health Care Education/Training Program
DX: I10 Essential (primary) hypertension (principal)
CPT/HCPCS: 36415; 80069

== ENCOUNTER → 2024-06-15 15:45 | Outpatient (CLI) | payer OTHER, SELFPAY ==
[2022-12-20 14:07] VITALS: BMI 33.3
[2024-06-15 17:40] LABS: Albumin 4.5 g/dL (3.5-5.0); BUN Creatinine Ratio 15.6 (6-22); Blood Urea Nitrogen 14 mg/dL (7-17); Calcium 9.5 mg/dL (8.4-10.2); Carbon Dioxide 28 mmol/L (22-32); Chloride 100 mmol/L (98-107); Estimated Glomerular Filt Rate > 60 mL/min (>60); Glucose 98 mg/dL (80-110); HEMOLYSIS < 15 (0-50); Phosphorous 3.9 mg/dL (2.8-4.1); Potassium 4.2 mmol/L (3.4-5.1); Sodium 132 mmol/L (137-145)
== END ==
PROVIDERS: Family Provider Family Medicine; PCP Family Medicine; Referring Provider Student in an Organized Health Care Education/Training Program; Visit Provider Student in an Organized Health Care Education/Training Program
DX: I10 Essential (primary) hypertension (principal)
CPT/HCPCS: 36415; 80069

== ENCOUNTER → 2024-06-25 15:05 | Outpatient (CLI) | payer OTHER, SELFPAY ==
[2022-12-20 14:07] VITALS: BMI 33.3
[2024-06-25 16:23] LABS: Albumin 4.6 g/dL (3.5-5.0); BUN Creatinine Ratio 22.2 (6-22); Blood Urea Nitrogen 18 mg/dL (7-17); Calcium 9.8 mg/dL (8.4-10.2); Carbon Dioxide 28 mmol/L (22-32); Chloride 101 mmol/L (98-107); Estimated Glomerular Filt Rate > 60 mL/min (>60); Glucose 90 mg/dL (80-110); HEMOLYSIS < 15 (0-50); Phosphorous 4.6 mg/dL (2.8-4.1); Potassium 3.9 mmol/L (3.4-5.1); Sodium 135 mmol/L (137-145)
== END ==
PROVIDERS: Family Provider Family Medicine; PCP Family Medicine; Referring Provider Student in an Organized Health Care Education/Training Program; Visit Provider Student in an Organized Health Care Education/Training Program
DX: I10 Essential (primary) hypertension (principal)
CPT/HCPCS: 36415; 80069

== ENCOUNTER → 2024-07-03 17:27 | Outpatient (CLI) | payer OTHER, SELFPAY ==
[2022-12-20 14:07] VITALS: BMI 33.3
[2024-07-03 18:26] LABS: Albumin 4.8 g/dL (3.5-5.0); BUN Creatinine Ratio 23.5 (6-22); Blood Urea Nitrogen 19 mg/dL (7-17); Calcium 9.6 mg/dL (8.4-10.2); Carbon Dioxide 25 mmol/L (22-32); Chloride 99 mmol/L (98-107); Estimated Glomerular Filt Rate > 60 mL/min (>60); Glucose 99 mg/dL (80-110); HEMOLYSIS < 15 (0-50); Phosphorous 4.1 mg/dL (2.8-4.1); Potassium 4.3 mmol/L (3.4-5.1); Sodium 134 mmol/L (137-145)
== END ==
PROVIDERS: Family Provider Family Medicine; PCP Family Medicine; Referring Provider Student in an Organized Health Care Education/Training Program; Visit Provider Student in an Organized Health Care Education/Training Program
DX: R39.9 Unspecified symptoms and signs involving the genitourinary system (principal)
CPT/HCPCS: 36415; 80069

== ENCOUNTER → 2024-07-16 16:41 | Outpatient (CLI) | payer OTHER, SELFPAY ==
[2022-12-20 14:07] VITALS: BMI 33.3
[2024-07-16 17:33] LABS: Albumin 4.6 g/dL (3.5-5.0); BUN Creatinine Ratio 21.8 (6-22); Blood Urea Nitrogen 17 mg/dL (7-17); Calcium 9.4 mg/dL (8.4-10.2); Carbon Dioxide 27 mmol/L (22-32); Chloride 96 mmol/L (98-107); Estimated Glomerular Filt Rate > 60 mL/min (>60); Glucose 95 mg/dL (80-110); HEMOLYSIS 20 (0-50); Phosphorous 4.3 mg/dL (2.8-4.1); Potassium 4.3 mmol/L (3.4-5.1); Sodium 129 mmol/L (137-145)
== END ==
PROVIDERS: Family Provider Family Medicine; PCP Family Medicine; Referring Provider Student in an Organized Health Care Education/Training Program; Visit Provider Student in an Organized Health Care Education/Training Program
DX: I10 Essential (primary) hypertension (principal)
CPT/HCPCS: 36415; 80069

== ENCOUNTER → 2024-07-23 08:42 | Outpatient (CLI) | payer OTHER, SELFPAY ==
[2022-12-20 14:07] VITALS: BMI 33.3
[2024-07-23 10:18] LABS: Albumin 4.7 g/dL (3.5-5.0); BUN Creatinine Ratio 22.1 (6-22); Blood Urea Nitrogen 19 mg/dL (7-17); Calcium 9.8 mg/dL (8.4-10.2); Carbon Dioxide 24 mmol/L (22-32); Chloride 99 mmol/L (98-107); Estimated Glomerular Filt Rate > 60 mL/min (>60); Glucose 99 mg/dL (80-110); HEMOLYSIS < 15 (0-50); Phosphorous 4.2 mg/dL (2.8-4.1); Potassium 4.3 mmol/L (3.4-5.1); Sodium 134 mmol/L (137-145)
== END ==
PROVIDERS: Family Provider Family Medicine; PCP Family Medicine; Referring Provider Student in an Organized Health Care Education/Training Program; Visit Provider Student in an Organized Health Care Education/Training Program
DX: I10 Essential (primary) hypertension (principal)
CPT/HCPCS: 36415; 80069

== ENCOUNTER → 2024-08-11 10:32 | Outpatient (CLI) | payer OTHER, SELFPAY ==
[2022-12-20 14:07] VITALS: BMI 33.3
[2024-08-11 11:34] LABS: Albumin 4.4 g/dL (3.5-5.0); BUN Creatinine Ratio 21.5 (6-22); Blood Urea Nitrogen 17 mg/dL (7-17); Calcium 9.2 mg/dL (8.4-10.2); Carbon Dioxide 25 mmol/L (22-32); Chloride 102 mmol/L (98-107); Estimated Glomerular Filt Rate > 60 mL/min (>60); Glucose 103 mg/dL (80-110); HEMOLYSIS < 15 (0-50); Phosphorous 3.5 mg/dL (2.8-4.1); Potassium 4.1 mmol/L (3.4-5.1); Sodium 133 mmol/L (137-145)
== END ==
LOC: LAB 10:33
PROVIDERS: Family Provider Family Medicine; PCP Family Medicine; Referring Provider Student in an Organized Health Care Education/Training Program; Visit Provider Student in an Organized Health Care Education/Training Program
DX: I10 Essential (primary) hypertension (principal)
CPT/HCPCS: 36415; 80069

== ENCOUNTER → 2024-08-15 16:03 | Outpatient (CLI) | payer OTHER, SELFPAY ==
[2022-12-20 14:07] VITALS: BMI 33.3
[2024-08-15 17:28] LABS: Albumin 4.6 g/dL (3.5-5.0); BUN Creatinine Ratio 16.7 (6-22); Blood Urea Nitrogen 13 mg/dL (7-17); Calcium 9.4 mg/dL (8.4-10.2); Carbon Dioxide 25 mmol/L (22-32); Chloride 100 mmol/L (98-107); Estimated Glomerular Filt Rate > 60 mL/min (>60); Glucose 80 mg/dL (80-110); HEMOLYSIS < 15 (0-50); Phosphorous 3.4 mg/dL (2.8-4.1); Potassium 4.2 mmol/L (3.4-5.1); Sodium 136 mmol/L (137-145)
== END ==
PROVIDERS: Family Provider Family Medicine; PCP Family Medicine; Referring Provider Student in an Organized Health Care Education/Training Program; Visit Provider Student in an Organized Health Care Education/Training Program
DX: I10 Essential (primary) hypertension (principal)
CPT/HCPCS: 36415; 80069

== ENCOUNTER → 2024-08-24 16:50 | Outpatient (CLI) | payer OTHER, SELFPAY ==
[2022-12-20 14:07] VITALS: BMI 33.3
[2024-08-24 18:07] LABS: Albumin 4.6 g/dL (3.5-5.0); BUN Creatinine Ratio 15.6 (6-22); Blood Urea Nitrogen 12 mg/dL (7-17); Calcium 9.7 mg/dL (8.4-10.2); Carbon Dioxide 29 mmol/L (22-32); Chloride 101 mmol/L (98-107); Estimated Glomerular Filt Rate > 60 mL/min (>60); Glucose 87 mg/dL (80-110); HEMOLYSIS < 15 (0-50); Phosphorous 3.7 mg/dL (2.8-4.1); Potassium 3.7 mmol/L (3.4-5.1); Sodium 138 mmol/L (137-145)
== END ==
LOC: LAB 16:50
PROVIDERS: Family Provider Family Medicine; PCP Family Medicine; Referring Provider Student in an Organized Health Care Education/Training Program; Visit Provider Student in an Organized Health Care Education/Training Program
DX: E87.1 Hypo-osmolality and hyponatremia (principal)
CPT/HCPCS: 36415; 80069

== ENCOUNTER → 2024-08-29 15:14 | Outpatient (CLI) | payer MEDICARE, OTHER, SELFPAY ==
[2022-12-20 14:07] VITALS: BMI 33.3
[2024-08-29 16:14] LABS: Albumin 4.4 g/dL (3.5-5.0); BUN Creatinine Ratio 21.3 (6-22); Blood Urea Nitrogen 17 mg/dL (7-17); Calcium 9.2 mg/dL (8.4-10.2); Carbon Dioxide 24 mmol/L (22-32); Chloride 95 mmol/L (98-107); Estimated Glomerular Filt Rate > 60 mL/min (>60); Glucose 87 mg/dL (80-110); HEMOLYSIS < 15 (0-50); Phosphorous 4.1 mg/dL (2.8-4.1); Potassium 3.5 mmol/L (3.4-5.1); Sodium 131 mmol/L (137-145)
== END ==
PROVIDERS: Family Provider Family Medicine; PCP Family Medicine; Referring Provider Student in an Organized Health Care Education/Training Program; Visit Provider Student in an Organized Health Care Education/Training Program
DX: I10 Essential (primary) hypertension (principal)
CPT/HCPCS: 36415; 80069

== ENCOUNTER → 2024-09-05 11:11 | Outpatient (CLI) | payer MEDICARE, OTHER, SELFPAY ==
[2022-12-20 14:07] VITALS: BMI 33.3
[2024-09-05 12:28] LABS: Albumin 4.9 g/dL (3.5-5.0); BUN Creatinine Ratio 13.2 (6-22); Blood Urea Nitrogen 10 mg/dL (7-17); Calcium 9.8 mg/dL (8.4-10.2); Carbon Dioxide 28 mmol/L (22-32); Chloride 85 mmol/L (98-107); Estimated Glomerular Filt Rate > 60 mL/min (>60); Glucose 108 mg/dL (80-110); HEMOLYSIS < 15 (0-50); Phosphorous 3.7 mg/dL (2.8-4.1); Potassium 3.4 mmol/L (3.4-5.1); Sodium 123 mmol/L (137-145)
== END ==
PROVIDERS: Family Provider Family Medicine; PCP Family Medicine; Referring Provider Student in an Organized Health Care Education/Training Program; Visit Provider Student in an Organized Health Care Education/Training Program
DX: I10 Essential (primary) hypertension (principal)
CPT/HCPCS: 36415; 80069

== ENCOUNTER 2024-09-05 20:58 | Inpatient (IN) | payer OTHER, SELFPAY ==
[2022-12-20 14:07] VITALS: BMI 33.3
[2024-09-05] VITALS (9 sets, daily range): BP systolic 182–208; BP diastolic 78–89; PULSE 61–70; RESP 14–31; TEMP 36.2; O2SAT 93–96; BMI 28.6
--- NOTE | 2024-09-05 21:24 | DI.RAD.S_ITS ---
PROCEDURE: XR CHEST 1V INDICATIONS: chest pain TECHNIQUE: One view of the chest was acquired. COMPARISON: [facility], CR, XR CHEST 1V, 06/02/2020, 23:12. [facility], CR, XR CHEST 1 VIEW, 08/27/2024, 23:12. FINDINGS AND IMPRESSION: On this single view study, no airspace consolidation or pleural effusion. Normal heart size. Degenerative osseous changes Dictated by: Jeronimo More M.D. on 09/05/2024 at 22:00 Approved by: Jeronimo More M.D. on 09/05/2024 at 22:01
[2024-09-05 21:33] LABS: Add Manual Diff / Slide Review NO; Basophils Absolute Auto 0 /uL (0-100); Basophils Percent Auto 0.6 % (0-2); Eosinophils Absolute Auto 100 /uL (0-450); Eosinophils Percent Auto 0.9 % (2-4); Hematocrit 36.9 % (36-46); Hemoglobin 13.2 g/dL (12.0-16.0); Lymphocytes Absolute Auto 1800 /uL (1100-4500); Lymphocytes Percent Auto 23.3 % (25-40); Mean Corpuscular HGB Conc 35.8 % (30-36); Mean Corpuscular Volume 89.4 fL (80-100); Monocytes Absolute Auto 800 /uL (0-900); Monocytes Percent Auto 10.8 % (3-14); Neutrophils Absolute Auto 4900 /uL (1500-7000); Neutrophils Percent Auto 64.4 % (50-75); Platelet Count 316 X10^3/uL (150-400); Red Blood Cell Count 4.13 X10^6/uL (4.0-5.2); Red Cell Distribution Width 12.2 % (11.6-14.8); White Blood Cell Count 7.6 X10^3/uL (4.5-11.0)
[2024-09-05 21:36] LABS: INR 1.2 (0.9-1.3); Prothrombin Time 13.2 SECONDS (9.4-12.5)
--- NOTE | 2024-09-05 21:36 | EKG_ITS ---
[facility] [address] [place] [address] Test Date: 2024-09-05 Pat Name: Mery Price Department: [facility] Room: Gender: Female Fiber Optic Technician: RAVINDRA : 1955 Requested By: Order Number: [id number] Reading MD: Delfin Regalado Measurements Intervals [place] Rate: 62 P: 68 [place]: 168 QRS: 38 QRSD: 84 T: 48 QT: 434 QTc: 440 Interpretive Statements Normal sinus rhythm Possible Left atrial enlargement Nonspecific ST and T wave abnormality Electronically Signed On 09-08-2024 18:28:33 PDT by Delfin Regalado
[2024-09-05 21:38] LABS: PTT Partial Thromboplastin Tim 42 SECONDS (25.1-36.5)
[2024-09-05 21:40] LABS: Alanine Aminotransferase 36 IU/L (<35); Albumin 4.7 g/dL (3.5-5.0); Albumin Globulin Ratio 1.7 (1.0-2.8); Alkaline Phosphatase 69 U/L (38-126); Aspartate Aminotransferase 35 IU/L (14-36); BUN Creatinine Ratio 17.6 (6-22); Bilirubin Total 1.2 mg/dL (0.2-1.3); Blood Urea Nitrogen 12 mg/dL (7-17); Calcium 9.7 mg/dL (8.4-10.2); Carbon Dioxide 28 mmol/L (22-32); Chloride 83 mmol/L (98-107); Creatine Kinase 130 U/L (30-135); Estimated Glomerular Filt Rate > 60 mL/min (>60); Globulin 2.7 g/dL (1.7-4.1); Glucose 106 mg/dL (80-110); HEMOLYSIS < 15 (0-50); Lipase 56 U/L (23-300); Magnesium 1.6 mg/dL (1.6-2.3); Potassium 2.8 mmol/L (3.4-5.1); Sodium 122 mmol/L (137-145); Total Protein 7.4 g/dL (6.3-8.2)
[2024-09-05 21:52] LABS: NT-proBNP (BNP-Adult 18+) < 20 pg/mL (<125); Troponin I < 0.012 ng/mL (0.01-0.034)
--- NOTE | 2024-09-05 22:04 | DI.CT.S_ITS ---
PROCEDURE: CT ANGIO HEAD AND NECK INDICATIONS: htn, scott, slurred speech earlier TECHNIQUE: After the administration of intravenous contrast, 1 mm thick sections acquired from the aortic arch through the [place]. 3-dimensional ckvukwr-oieudcpay-cjjbragsvn (MIP) and/or volume rendering reformats were acquired of the central intracranial vasculature and neck separately. For radiation dose reduction, the following was used: automated exposure control, adjustment of mA and/or kV according to patient size. COMPARISON: None. FINDINGS: Image quality: Diagnostic HEAD ANGIOGRAPHY: Anterior circulation: ICAs: Mild cavernous and supraclinoid calcifications greater on the right ACAs: Patent MCAs: Patent AComm: No aneurysm Venous sinuses: No occlusive thrombus Posterior circulation: Dominance: Right Vertebral arteries: Patent. Left vertebral artery terminates in PICA Basilar artery: Patent PComms: Dominant bilaterally rheumatology nurse: Patent NECK ANGIOGRAPHY: Aortic arch and subclavian arteries: Patent. Mild atherosclerotic calcifications. CCAs: No stenosis, occlusion, or aneurysm. ICA origins (by NASCET criteria): Mghg-nq-xilcehuf calcifications bilaterally, narrowing is 50% on the left, less than 50% on the right ICAs: Patent ECAs: Origins are patent. Vertebral arteries: Patent Soft tissues: No significant mass, aneurysm, or lymphadenopathy Lung apices: No pneumothorax Bones: Degenerative changes are present. No aggressive appearing osseous abnormality IMPRESSION: No large vessel occlusion. No high-grade stenosis. Ktsw-yv-ggltotik areas of atherosclerotic calcifications as described above. If there is high concern for infarct, consider MRI. Any quantitative measurements of stenosis were performed using NASCET criteria. Dictated by: Jeronimo More M.D. on 09/05/2024 at 22:37 Approved by: Jeronimo More M.D. on 09/05/2024 at 22:41
--- NOTE | 2024-09-05 22:04 | DI.CT.S_ITS ---
PROCEDURE: CT HEAD/BRAIN WO CON INDICATIONS: htn, scott, slurred speech earlier TECHNIQUE: Noncontrast 4.5 mm thick angled axial sections acquired from the foramen magnum to the vertex, with coronal and sagittal reformats. For radiation dose reduction, the following was used: automated exposure control, adjustment of mA and/or kV according to patient size. COMPARISON: None. FINDINGS: Image quality: Diagnostic CSF spaces: Basal cisterns are patent. Lateral ventricles are symmetric. Volume: Vascular calcifications. Periventricular white matter disease is commonly seen with chronic microangiopathy. Volume loss is present. These findings are mild Brain: No intracranial hemorrhage. March-white differentiation is grossly maintained. Craniofacial structures: No significant paranasal sinus opacity. IMPRESSION: No acute intracranial pathology. If there is high concern for parenchymal pathology, consider further evaluation with MRI. Dictated by: Jeronimo More M.D. on 09/05/2024 at 22:36 Approved by: Jeronimo More M.D. on 09/05/2024 at 22:36
--- NOTE | 2024-09-05 23:45 | ED_ITS ---
HPI - General Adult General Chief complaint: Hypertension Stated complaint: states hypertensive crisis Time Seen by Provider: 09/05/24 22:04 Source: patient, RN notes reviewed and old records reviewed Mode of arrival: Ambulatory History of Present Illness HPI narrative: 68-year-old female history of hypertension, CHF with report of headache, elevated blood pressures and some difficulty with word finding and confusion earlier today. Patient states headache improved after some Tylenol still there little bit. She appreciates a little bit of blurry vision in the left lower quadrant of her vision with either eyes open or closed for the past 3 or 4 days. Denies any numbness, tingling or weakness no difficulty with gait or movement. She denies any chest pain, no shortness of breath. No syncope. She has had some nausea but no vomiting. No issues with bowel movements. She was noticed a little bit of urinary frequency, she denies any new swelling in her extremities. She does note her weight has gone up 4 lb in the last day. Patient notes she has been on a water fast for the past several days and has been doing this intermittently for the past 5-6 weeks. She notes that she takes labetalol 100 mg b.i.d., losartan 100 mg daily, doxazosin 12.5 mg daily, chlorthalidone 50 mg daily she did take extra took 75 mg of chlorthalidone last night as well as today. She had her spironolactone stopped 4 weeks ago. She notes she has been following with Endocrinology at [facility] to be evaluated for hyperaldosteronism. Notes she has a sister and brother who both have AFib and sister was diagnosed with hyperaldosteronism. States prior history was complete hysterectomy, appendectomy and partial sigmoid removal, she states this was for endometriosis. No prior cardiac interventions. States allergies to wheat and describes herself celiac, also allergy to codeine. No tobacco, occasional alcohol 3-4 drinks but every couple weeks or months. No recreational drugs. Dr. Gant is her primary care physician. She also [facility]. she has been seeing Dr. Fabian with endocrinology as an outpatient at [facility]. She was accompanied by her . Patient is full code. Related Data Home Medications Medication Instructions Recorded Confirmed chlorthalidone 25 mg tablet 50 mg PO DAILY 11/03/22 09/05/24 ascorbic acid (vitamin C) 250 mg 250 mg PO DAILY 09/05/24 09/05/24 tablet calcium 250 mg (as 1 tab PO DAILY 09/05/24 09/05/24 carbonate)-vitamin D3 3.125 mcg (125 unit) tablet cranberry extract 405 mg capsule 405 mg PO DAILY 09/05/24 09/05/24 doxazosin 8 mg tablet,extended 12 mg PO DAILY 09/05/24 09/05/24 release 24 hr labetalol 100 mg tablet 100 mg PO BID 09/05/24 09/05/24 levothyroxine 175 mcg tablet 175 mcg PO DAILY 09/05/24 09/05/24 losartan 100 mg tablet 100 mg PO DAILY 09/05/24 09/05/24 trazodone 150 mg tablet 100 mg PO BEDTIME PRN sleep 09/05/24 09/05/24 zinc gluconate 50 mg tablet 50 mg PO DAILY 09/05/24 09/05/24 Previous Rx's Medication Instructions Recorded fluticasone propionate 50 1 spray intranasal QDAY #16 grams 08/25/21 mcg/actuation nasal spray,suspension (Flonase Allergy Relief) meclizine 12.5 mg tablet 12.5 - 25 mg (1 - 2 x 12.5 mg) PO 11/07/23 BID PRN dizziness #30 tabs budesonide 0.25 mg/2 mL suspension 0.25 mg (2 mL) inhalation DAILY 01/06/24 for nebulization (Pulmicort) #60 mL albuterol sulfate 90 mcg/actuation 2 puff inhalation Q6H PRN asthma 07/06/24 aerosol inhaler #8.5 grams fexofenadine 180 mg tablet 180 mg PO QDAY #10 tabs 07/26/24 ([facility] Allergy) omeprazole 20 mg capsule,delayed 20 mg PO DAILY #10 caps 07/26/24 release Allergies Allergy/AdvReac Type Severity Reaction Status Date / Time gluten Allergy Severe Agitated Verified 09/05/24 21:01 codeine [CODEINE] Allergy Mild Rash Verified 09/05/24 21:01 Review of Systems Review of Systems ROS Unobtainable: All systems reviewed & are unremarkable except as noted in HPI and below Patient History Medical History Right knee pain UTI (urinary tract infection) Chronic hypokalemia Acute pain of left shoulder Chronic left shoulder pain Posterior right knee pain Short leg syndrome, right, acquired Strain of right piriformis muscle Somatic dysfunction of lower extremity Sacral region somatic dysfunction Segmental and somatic dysfunction of abdomen and other regions Pelvic somatic dysfunction Lumbar region somatic dysfunction Iliotibial band syndrome, right leg Acute right-sided low back pain with sciatica History of open sigmoidectomy Hx of endometriosis Transaminitis Dysuria Urinary frequency Bilateral chronic knee pain Arthralgia of hands, bilateral Oral thrush Thigh cramp Vision changes Sinusitis Hordeolum externum (stye) Upper extremity somatic dysfunction Segmental and somatic dysfunction of rib cage Wears glasses Hearing loss Rosacea (~2015) Actinic keratosis (~2012) Asthma Anxiety Restless leg syndrome Chronic back pain (~2016) Ankle pain (~2004) Vertigo (~2016) Tinnitus (~2016) Recurrent sinusitis (~1974) GERD (gastroesophageal reflux disease) Chronic diarrhea Pain of right thumb Resistant hypertension Hyperlipidemia (~1996) Hypothyroidism (acquired) (~1996) Exercise-induced asthma Hypothyroidism Hypertension (~1996) Excessive daytime sleepiness Snoring Primary insomnia Obstructive sleep apnea syndrome Obesity Surgical History Hx of total hysterectomy Anesthesia History of sinus surgery (~2018) History of ankle surgery (~2012) S/P removal of left ovary (~1986) History of appendectomy (~1990) History of hysterectomy (~1990) Skin cancer (~1985) Family History Father Myocardial infarction Cancer History of heart disease Hypertension Mental health problem Mother Cancer Mental health problem Brother Atrial fibrillation History of heart disease Hypertension Sister Atrial fibrillation Myocardial infarction Squamous cell skin cancer History of heart disease Hypertension Grandfather Cancer Grandmother History of heart disease Hypertension Mental health problem Stroke Grandfather Cancer Grandmother Diabetes mellitus History of heart disease Social History marital status: household members: spouse lives independently: Yes caregiver/support person: No education level: college occupational status: other 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 HEENT: Atraumatic, pupils are equal round reactive to light, extraocular movements are intact, no nystagmus, nares are clear, TMs are clear with no fluid, there is no conjunctival pallor. Throat is clear without any exudates, erythema, tonsillar enlargement or uvular deviation, no facial droop HEART: Regular rate and rhythm without murmur, clicks, rubs. Pulses are equal in upper and lower extremities LUNGS:Lungs clear to auscultation, no wheezes, rales, crackles, chest moves symmetrically ABD:bowel sounds normal, soft, non-tender, no guarding, rebound, rigidity, no masses noted, no hepatosplenomegaly :No CVA tenderness MSCL: Non-tender, no muscle atrophy, muscles strength 5/5 upper and lower extremities, full range of motion. NEURO:CN 2-12 intact, sensation normal, reflexes 2/4 upper and lower extremities. finger nose finger test normal, heel bauer test normal Initial Vital Signs Initial Vital Signs: Vital Signs Temperature 97.2 F L 09/05/24 21:01 Pulse Rate 63 09/05/24 21:01 Respiratory Rate 18 09/05/24 21:01 Blood Pressure 193/84 H 09/05/24 21:01 Pulse Oximetry 96 09/05/24 21:01 Oxygen Delivery Method Room Air 09/05/24 21:01 Scores NIH Stroke Scale Level of Conciousness: Alert, keenly responsive Ask month/age: Answers both questions correctly. Open/close eyes, close hand: Performs both tasks correctly Best gaze horizontal: Normal Visual hernandez: No visual loss Facial palsy: Normal symetrical movement Left arm drift: No drift for full 10 sec Right arm drift: No drift for full 10 sec Left leg drift: No drift for full 5 sec Right leg drift: No drift for full 5 sec Limb ataxia: Absent Sensory on face/arms/legs: Normal, no sensory loss Best language: No aphasia, normal Dysarthria: Normal Extinction or inattention: No abnormality Total NIH Stroke scale score: 0 Course Orders Ordered: ED Orders 09/05/24 21:19 Complete Blood Count AUTO DIFF Stat Comprehensive Metabolic Panel Stat Lipase Stat Magnesium Stat NT-proBNP (BNP-Adult 18+) Stat PTT Partial Thromboplastin Jai Stat Prothrombin Time INR Stat Troponin & CK Cardiac Panel Stat 09/05/24 21:24 XR chest 1V Stat EKG-12 Lead Stat 09/05/24 22:04 CT angio head and neck Stat CT head/brain wo con Stat 09/06/24 00:51 EC echo doppler complete Stat MR head/brain wo con Stat 09/06/24 01:15 BMP [Basic Metabolic Panel] Q4H 09/06/24 05:15 BMP [Basic Metabolic Panel] Q4H 09/06/24 09:15 BMP [Basic Metabolic Panel] Q4H 09/06/24 13:15 BMP [Basic Metabolic Panel] Q4H 09/06/24 17:15 BMP [Basic Metabolic Panel] Q4H Sodium Chloride (Normal Saline 0.9%) 1,000 mls @ 100 mls/hr IV CONT JOSHUA Trazodone HCl (Trazodone 50 Mg Tablet) 100 mg PO BEDTIME JOSHUA Last Admin: 09/06/24 00:45 Dose: 100 mg Discontinued Medications Aspirin (Aspirin 81 Mg Chew Tab) 324 mg PO NOW ONE Stop: 09/06/24 00:54 Last Admin: 09/06/24 01:07 Dose: 324 mg Potassium Chloride (Potassium Chloride 20 Meq Tab) 40 meq PO NOW ONE Stop: 09/05/24 23:50 Last Admin: 09/06/24 00:08 Dose: 40 meq Documented By: COLE Vital Signs Vital signs: Vital Signs - 8 hr 09/05/24 21:01 09/05/24 22:00 09/05/24 22:02 Temperature 97.2 F L Pulse Rate 63 61 Respiratory Rate 18 Blood Pressure 193/84 H 208/89 H Pulse Oximetry 96 95 Oxygen Delivery Method Room Air 09/05/24 22:30 09/05/24 22:40 09/05/24 22:40 Temperature Pulse Rate 70 64 Respiratory Rate 31 H 14 Blood Pressure 203/83 H Pulse Oximetry 95 93 Oxygen Delivery Method 09/05/24 23:00 09/05/24 23:01 09/05/24 23:01 Temperature Pulse Rate 61 65 Respiratory Rate 14 14 Blood Pressure 206/85 H Pulse Oximetry 94 94 Oxygen Delivery Method 09/05/24 23:30 09/05/24 23:31 09/05/24 23:31 Temperature Pulse Rate 61 63 Respiratory Rate 18 Blood Pressure 182/78 H Pulse Oximetry 93 Oxygen Delivery Method 09/06/24 00:00 09/06/24 00:01 09/06/24 00:01 Temperature Pulse Rate 64 64 Respiratory Rate 19 Blood Pressure 193/81 H Pulse Oximetry 96 92 Oxygen Delivery Method 09/06/24 00:30 09/06/24 00:30 Temperature Pulse Rate 61 Respiratory Rate 16 Blood Pressure 208/86 H Pulse Oximetry 95 Oxygen Delivery Method Medical Decision Making Lab Data 09/05/24 21:19 09/05/24 21:19 Labs: Lab Results 09/05/24 Range/Units 21:19 WBC 7.6 (4.5-11.0) X10^3/uL RBC 4.13 (4.0-5.2) X10^6/uL Hgb 13.2 (12.0-16.0) g/dL Hct 36.9 (36-46) % MCV 89.4 (80-100) fL MCH 32.0 (26-34) PG MCHC 35.8 (30-36) % RDW 12.2 (11.6-14.8) % Plt Count 316 (150-400) X10^3/uL Neut % (Auto) 64.4 (50-75) % Lymph % (Auto) 23.3 L (25-40) % [place] % (Auto) 10.8 (3-14) % Eos % (Auto) 0.9 L (2-4) % Baso % (Auto) 0.6 (0-2) % Neut # (Auto) 4900 (1621-4273) /uL Lymph # (Auto) 1800 (8009-8210) /uL [place] # (Auto) 800 (0-900) /uL Eos # (Auto) 100 (0-450) /uL Baso # (Auto) 0 (0-100) /uL PT 13.2 H (9.4-12.5) SECONDS INR 1.2 (0.9-1.3) APTT 42 H (25.1-36.5) SECONDS Sodium 122 L (137-145) mmol/L Potassium 2.8 L (3.4-5.1) mmol/L Chloride 83 L (98-107) mmol/L Carbon Dioxide 28 (22-32) mmol/L BUN 12 (7-17) mg/dL Creatinine 0.68 (0.52-1.04) mg/dL Estimated GFR > 60 (>60) mL/min BUN/Creatinine Ratio 17.6 (6-22) Glucose 106 (80-110) mg/dL Calcium 9.7 (8.4-10.2) mg/dL Magnesium 1.6 (1.6-2.3) mg/dL Total Bilirubin 1.2 (0.2-1.3) mg/dL AST 35 (14-36) IU/L ALT 36 H (<35) IU/L Alkaline Phosphatase 69 (38-126) U/L Total Creatine Kinase 130 (30-135) U/L Troponin I < 0.012 (0.01-0.034) ng/mL NT-Pro-B Natriuret Pep < 20 (<125) pg/mL Total Protein 7.4 (6.3-8.2) g/dL Albumin 4.7 (3.5-5.0) g/dL Globulin 2.7 (1.7-4.1) g/dL Albumin/Globulin Ratio 1.7 (1.0-2.8) Lipase 56 (23-300) U/L Urine Dip Bedside Urine Glucose Negative Bedside Urine Bilirubin - Negative Bedside Urine Ketone - Negative Urine Specific [place] 1.005 Bedside Urine Occult Blood - Negative Bedside Urine pH 7.0 Bedside Urine Protein - Negative Bedside Urine Urobilinogen - Negative Bedside Urine Nitrite - Negative Bedside Urine Leukocytes - Negative Esterase Point of care testing: Urine Dip Bedside Urine Glucose Negative Bedside Urine Bilirubin - Negative Bedside Urine Ketone - Negative Urine Specific [place] 1.005 Bedside Urine Occult Blood - Negative Bedside Urine pH 7.0 Bedside Urine Protein - Negative Bedside Urine Urobilinogen - Negative Bedside Urine Nitrite - Negative Bedside Urine Leukocytes - Negative Esterase ECG Data Attestation: I personally reviewed and interpreted this ECG as follows: Prior ECG tracings: available for review Interpretation: Sinus rhythm rate of 62 IN 168 QRS 84 QTC of 440, no acute ST elevation or depression appreciated. patient has prior from 06/03/20 which appears similar. [facility] Narrative Medical decision making narrative: EKG shows sinus rhythm appears similar to prior from 06/03/2020. Labs show normal CBC, INR is 1.2 PTT is 42. Sodium is 122 was 123 on 09/05/2024 but was 131 08/29/2024 and has been trending down words since July. Sodium is 2.8, chloride 83 CO2 is 28 with a BUN 12 and a creatinine of 0.68 glucose is 106 ALT is 36 with otherwise normal bilirubin, AST and alk-phos troponins less than 0.012 with a BNP of 20. Head CT shows no acute change, CTA head and neck shows no large vessel occlusion, no high-grade stenosis, [id number] areas of atherosclerotic calcification described as above. poc urine is negative. Patient was hypertensive today, we will discuss with tele hospitalist if they would like to pursue decreasing blood pressure or allow for a little bit of hypertension in the setting of potential TIA versus hyponatremia. Patient has taken her evening blood pressure medications. Patient was not a candidate for TNK or code IR based on resolution of symptoms. Patient comes in with a complaint of headache, hypertension appears to be hyponatremic with hypokalemia has been trending down words over the past 2-3 weeks. Patient had noted some stuttering changes initially was concern for potential TIA those had resolved but suspect it maybe more related to her hyponatremia. NIH is 0. Patient appear she has a little bit of blurry vision left lower quadrant but visual hernandez appear to be intact on examination. Discussed with the patient and family TIA is on the differential but seems less likely then relation to her hyponatremia she does note some medication changes as well as a water fast she has been doing fairly frequently over the past 4-5 weeks that maybe contributing to her electrolyte changes. She notes she has been drinking water and occasionally some tea over the past several days. Patient received potassium orally. Call to telehospitalist [phone], spoke with Dr. Mora, she accepts observation telemetry. We will have a start NS at 100 mL after 4 hour BMP which he would be about 1:15 a.m. and asked for repeat BMP Q4. We will give aspirin 325 mg although patient's symptoms maybe secondary to her hyponatremia asked if I can go ahead and order MR brain as well as echo for the morning for stroke workup. Discharge Plan Departure Patient Disposition: Admitted as Observation Clinical Impression: Hyponatremia, Hypokalemia Admit Date/Time: 09/06/24 00:54 Admit Provider: Catherine Mora
[2024-09-06] VITALS (22 sets, daily range): BP systolic 129–208; BP diastolic 61–86; PULSE 58–97; RESP 13–42; TEMP 36–36.4; O2SAT 92–99; BMI 28.6
[2024-09-06] MEDS: POTASSIUM CHLORIDE 20 MEQ TAB 40 MEQ PO ×3 (00:08→14:27)
[2024-09-06] MEDS: TRAZODONE 50 MG TABLET 100 MG PO ×2 (00:45→20:59)
--- NOTE | 2024-09-06 00:51 | DI.MRI.S_ITS ---
PROCEDURE: MR HEAD/BRAIN WO CON INDICATIONS: tia vs hyponatremia TECHNIQUE: Non-contrast axial T1 spin echo, axial T2 fast spin echo, sagittal and axial FLAIR, coronal T2 fast spin echo, axial gradient echo, axial diffusion and ADC through the brain. COMPARISON: [facility], CT, CT HEAD/BRAIN WO CON, 09/05/2024, 22:09. FINDINGS: Image quality: Excellent. CSF spaces: Ventricles appear symmetric in size and shape. Basal cisterns are patent. No extra-axial fluid collections. Brain: No intracranial bleeds or mass effects. There is cerebral volume loss for age. There are periventricular and deep white matter chronic small vessel ischemic changes. Brainstem appears normal. Diffusion-weighted images show no acute infarct. No chronic ischemic insults. Normal intravascular flow voids are present. Skull and face: Calvarial bone marrow is normal in signal. Orbits are normal. Sinuses: Sinuses and mastoids are clear. IMPRESSION: 1. No acute infarction. No intracranial bleed, midline shift or mass effect. 2. Age related volume loss and mild white matter small vessel chronic ischemic changes. Dictated by: Christian Zhong M.D. on 09/06/2024 at 9:49 Approved by: Christian Zhong M.D. on 09/06/2024 at 9:53
--- NOTE | 2024-09-06 00:51 | DI.ECHO.S_ITS ---
[facility] : : [address] : : [place] : : [id number] : : Phone: [phone] Echocardiogram Report + + :Name: YULIANA REINOSO Study Date: 09/06/2024 Height: 65 in : :[facility] ReadingLocation: Weight: 172 lb : : Gender: Female BSA: 1.9 m2 : :: 1955 Age: 68 yrs BP: 185/83 mmHg: :Reason For Study: TIA VS HYPONATREMIA : :Ordering Physician: SAVITA ACEVEDO Performed By: Nhi Amador : :Referring: SAVITA ACEVEDO : + + Interpretation Summary The ejection fraction is estimated to be 60-65%. There is mild to moderate mitral regurgitation. There is mild to moderate tricuspid regurgitation. Compared to the prior echo exam, there has been no change in TR severity. There is no Doppler evidence for an interatrial shunt. Procedure: A two-dimensional transthoracic echocardiogram with color flow and Doppler was performed. The study quality was technically adequate. Comparison is made with the echocardiogram of 03/30/2024. A saline contrast injection was performed to assess for cardiac shunting. The patient was in sinus bradycardia with heart rates between 58-62 bpm during the exam. Left Ventricle: The left ventricle is normal in size and wall thickness. The ejection fraction is estimated to be 60-65%. Left ventricular wall motion is normal. Right Ventricle: The right ventricle is normal size. The right ventricular systolic function is normal. Atria: The left atrial size is normal. Right atrial size is normal. There is no Doppler evidence for an interatrial shunt. Injection of contrast documented no interatrial shunt. Mitral Valve: The mitral valve leaflets appear to open well. There is no mitral annular calcification. There is mild to moderate mitral regurgitation. Aortic Valve: The aortic valve is trileaflet. The aortic valve opens well. There is no aortic valve stenosis. No aortic regurgitation is present. Tricuspid Valve: The tricuspid valve leaflets are thin and pliable. There is mild to moderate tricuspid regurgitation. Compared to the prior echo exam, there has been no change in TR severity. Pulmonic Valve: The pulmonic valve leaflets are thin and pliable; valve motion is normal. There is no pulmonic valvular regurgitation. Great Vessels: The aortic root is normal size. The ascending aorta could not be visualized. The IVC is of normal diameter and collapses greater than 50% with a sniff. This suggests a low right atrial pressure of 3 mm Hg. Pericardium/ Pleura There is no pericardial effusion. There is no pleural effusion. MMode/2D Measurements & Calculations LVIDd: 4.5 cm LVOT diam: 2.0 cm LVIDs: 2.8 cm Ao root diam: 2.7 cm FS: 37.9 % Ao Arch Diam (Prox Trans): 2.8 cm EPSS: 0.33 cm IVSd: 0.82 cm LVPWd: 0.89 cm LV lion. diameter/BSA (cm/m^2): 2.4 LV sys. diameter/BSA (cm/m^2): 1.5 LA A2 area: 19.3 cm2 RA long axis: 5.7 cm LA A4 area: 17.6 cm2 RA area: 18.3 cm2 LA length (vol): 5.7 cm RA vol: 49.8 ml LA vol: 51.0 ml RA : 26.9 ml/m2 LA vol index: 27.5 ml/m2 IVC diam: 2.0 cm RVD1 (basal): 3.4 cm TAPSE: 2.4 cm Doppler Measurements & Calculations Ao V2 max: 137.4 cm/sec LVOT Max Ric: 115.8 cm/sec Ao V2 mean: 88.3 cm/sec LV V1 max P.4 mmHg Ao max P.6 mmHg LV V1 VTI: 30.3 cm Ao mean P.6 mmHg ELYSSA(I,D): 2.9 cm2 Ao V2 VTI: 31.8 cm ELYSSA(V,D): 2.5 cm2 sev ratio: 0.95 ELYSSA indexed to BSA (cm^2/m^2): 1.5 MV E max ric: 80.9 cm/sec TR max ric: 256.0 cm/sec MV A max ric: 93.6 cm/sec TR max P.2 mmHg MV E/A: 0.86 PA V2 max: 82.9 cm/sec Med Peak E' Ric: 8.6 cm/sec PA V2 mean: 58.1 cm/sec E/E' med: 9.4 PA mean P.5 mmHg Lat Peak E' Ric: 9.5 cm/sec PA pr(Accel): 10.9 mmHg E/E' lat: 8.5 E/e' average: 9.0 MV dec time: 0.25 sec Pulm A Revs Ric: 29.4 cm/sec SV(LVOT): 91.2 ml Pulm A Revs Dur: 0.09 sec Reading Physician:10:12 AM
[2024-09-06] MEDS: ASPIRIN 81 MG CHEW TAB 324 MG PO (01:07)
[2024-09-06] MEDS: SODIUM CHLORIDE 0.9% 1,000 ML 100 ML IV ×2 (01:17→14:27)
--- NOTE | 2024-09-06 01:22 | PC.NURSE ---
repeat BMP drawn and sent to lab
[2024-09-06 01:49] LABS: BUN Creatinine Ratio 18.8 (6-22); Blood Urea Nitrogen 12 mg/dL (7-17); Calcium 9.6 mg/dL (8.4-10.2); Carbon Dioxide 27 mmol/L (22-32); Chloride 86 mmol/L (98-107); Estimated Glomerular Filt Rate > 60 mL/min (>60); Glucose 97 mg/dL (80-110); HEMOLYSIS 25 (0-50); Sodium 125 mmol/L (137-145)
[2024-09-06 04:24] LABS: MRSA (Nasal) PCR NOT DETECTED (Not Detect)
[2024-09-06 06:11] LABS: Add Manual Diff / Slide Review NO; Basophils Absolute Auto 100 /uL (0-100); Basophils Percent Auto 1.1 % (0-2); Eosinophils Absolute Auto 100 /uL (0-450); Hematocrit 37.2 % (36-46); Hemoglobin 13.4 g/dL (12.0-16.0); Lymphocytes Absolute Auto 2000 /uL (1100-4500); Lymphocytes Percent Auto 26.9 % (25-40); Mean Corpuscular HGB Conc 36.1 % (30-36); Mean Corpuscular Hemoglobin 32.4 PG (26-34); Mean Corpuscular Volume 89.9 fL (80-100); Monocytes Absolute Auto 800 /uL (0-900); Monocytes Percent Auto 10.9 % (3-14); Neutrophils Absolute Auto 4400 /uL (1500-7000); Neutrophils Percent Auto 60.1 % (50-75); Platelet Count 304 X10^3/uL (150-400); Red Blood Cell Count 4.14 X10^6/uL (4.0-5.2); Red Cell Distribution Width 12.1 % (11.6-14.8); White Blood Cell Count 7.3 X10^3/uL (4.5-11.0)
[2024-09-06 06:34] LABS: BUN Creatinine Ratio 15.6 (6-22); Blood Urea Nitrogen 10 mg/dL (7-17); Calcium 9.6 mg/dL (8.4-10.2); Carbon Dioxide 27 mmol/L (22-32); Chloride 90 mmol/L (98-107); Estimated Glomerular Filt Rate > 60 mL/min (>60); Glucose 98 mg/dL (80-110); HEMOLYSIS < 15 (0-50); Potassium 3.1 mmol/L (3.4-5.1); Sodium 127 mmol/L (137-145)
[2024-09-06 07:07] LABS: Magnesium 1.8 mg/dL (1.6-2.3); Phosphorous 3.8 mg/dL (2.8-4.1)
--- NOTE | 2024-09-06 08:18 | PM.HP.1 ---
History of Present Illness History of Present Illness Date Patient Seen: 09/06/24 Chief complaint: states hypertensive crisis Narrative: 68 y/o F with h/o GERD, Hypothyroidism, Asthma, chronic headaches, yesterday noted some word finding difficulty, HTN, on multiple anti HTN agents, including Chlorthalidone, has noted for last 3-4 days, intermittent Blurry vision in Left lower quadrant, and confusion, no weakness of any extremity , no fall , or hitting her head. She had noted mild headache, wi8th improvement with Tylenol. She had noted her SBPs have been high in 190 to 200 range over last few days. She had taken Chlorthalidone 75 mg daily instead of her usual dose of 50 mg daily. She also does a metabolic re set routine with intermittent fasting , and drinking more fluids these last few weeks. Denies Abd pain, dysuria, Vomiting , Diarrhea, CP or cough Noted some intermittent nausea yeasterday but this has subsided. She also sees her Fish Processing Supervisor / Dr Ant Fabian at [facility] , for investigation related to Aldosterponism , as pt has a Family h/o same. She came to ED for evaluation. IN ED, BP was elevated 190 to 200 range, HR 63 Afebrile, RR 18, O2 sat 96 % on RA Her Sodium was low at 122, K at 2.8 CL 83 Troponin not elevated < 0.012 Creat / BUN : 12/ 0.[address] head WNL EKG : NSR HR 62 , no acute ST changes seen. Pt had a CT head, CTA Head and neck done : No arterial narrowing or acute changes. She was given IV NS and referred to Hospitalist ike for further care. [facility] Medical History (Updated 09/06/24 @ 09:06 by Catherine Mora MD) Uncontrolled hypertension Family history of hyperaldosteronism Right knee pain UTI (urinary tract infection) Chronic hypokalemia Acute pain of left shoulder Chronic left shoulder pain Posterior right knee pain Short leg syndrome, right, acquired Strain of right piriformis muscle Somatic dysfunction of lower extremity Sacral region somatic dysfunction Segmental and somatic dysfunction of abdomen and other regions Pelvic somatic dysfunction Lumbar region somatic dysfunction Iliotibial band syndrome, right leg Acute right-sided low back pain with sciatica History of open sigmoidectomy Hx of endometriosis Transaminitis Dysuria Urinary frequency Bilateral chronic knee pain Arthralgia of hands, bilateral Oral thrush Thigh cramp Vision changes Sinusitis Hordeolum externum (stye) Upper extremity somatic dysfunction Segmental and somatic dysfunction of rib cage Wears glasses Hearing loss Rosacea (~2015) Actinic keratosis (~2012) Asthma Anxiety Restless leg syndrome Chronic back pain (~2016) Ankle pain (~2004) Vertigo (~2016) Tinnitus (~2016) Recurrent sinusitis (~1974) GERD (gastroesophageal reflux disease) Chronic diarrhea Pain of right thumb Resistant hypertension Hyperlipidemia (~1996) Hypothyroidism (acquired) (~1996) Exercise-induced asthma Hypothyroidism Hypertension (~1996) Excessive daytime sleepiness Snoring Primary insomnia Obstructive sleep apnea syndrome Obesity Surgical History Hx of total hysterectomy Anesthesia History of sinus surgery (~2018) History of ankle surgery (~2012) S/P removal of left ovary (~1986) History of appendectomy (~1990) History of hysterectomy (~1990) Skin cancer (~1985) Family History Father Myocardial infarction Cancer History of heart disease Hypertension Mental health problem Mother Cancer Mental health problem Brother Atrial fibrillation History of heart disease Hypertension Sister Atrial fibrillation Myocardial infarction Squamous cell skin cancer History of heart disease Hypertension Grandfather Cancer Grandmother History of heart disease Hypertension Mental health problem Stroke Grandfather Cancer Grandmother Diabetes mellitus History of heart disease Social History marital status: household members: spouse lives independently: Yes caregiver/support person: No education level: college occupational status: other 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 history: over 6 months ago Smoking Status: Former smoker alcohol intake: current Meds Home Medications and Allergies Home Medications Medication Instructions Recorded Confirmed Type fluticasone propionate 50 1 spray intranasal QDAY #16 grams 08/25/21 09/05/24 Rx mcg/actuation nasal spray,suspension (Flonase Allergy Relief) chlorthalidone 25 mg tablet 50 mg PO DAILY 11/03/22 09/05/24 History meclizine 12.5 mg tablet 12.5 - 25 mg (1 - 2 x 12.5 mg) PO 11/07/23 09/05/24 Rx BID PRN dizziness #30 tabs budesonide 0.25 mg/2 mL suspension 0.25 mg (2 mL) inhalation DAILY 01/06/24 09/05/24 Rx for nebulization (Pulmicort) #60 mL albuterol sulfate 90 mcg/actuation 2 puff inhalation Q6H PRN asthma 07/06/24 09/05/24 Rx aerosol inhaler #8.5 grams fexofenadine 180 mg tablet 180 mg PO QDAY #10 tabs 07/26/24 09/05/24 Rx (Sherry Allergy) omeprazole 20 mg capsule,delayed 20 mg PO DAILY #10 caps 07/26/24 09/05/24 Rx release ascorbic acid (vitamin C) 250 mg 250 mg PO DAILY 09/05/24 09/05/24 History tablet calcium 250 mg (as 1 tab PO DAILY 09/05/24 09/05/24 History carbonate)-vitamin D3 3.125 mcg (125 unit) tablet cranberry extract 405 mg capsule 405 mg PO DAILY 09/05/24 09/05/24 History doxazosin 8 mg tablet,extended 12 mg PO DAILY 09/05/24 09/05/24 History release 24 hr labetalol 100 mg tablet 100 mg PO BID 09/05/24 09/05/24 History levothyroxine 175 mcg tablet 175 mcg PO DAILY 09/05/24 09/05/24 History losartan 100 mg tablet 100 mg PO DAILY 09/05/24 09/05/24 History trazodone 150 mg tablet 100 mg PO BEDTIME PRN sleep 09/05/24 09/05/24 History zinc gluconate 50 mg tablet 50 mg PO DAILY 09/05/24 09/05/24 History Allergies Allergy/AdvReac Type Severity Reaction Status Date / Time gluten Allergy Severe Agitated Verified 09/05/24 21:01 codeine [CODEINE] Allergy Mild Rash Verified 09/05/24 21:01 Review of Systems Review of Systems ROS: Yes All systems reviewed with the patient and are negative except as otherwise documented Exam Vital Signs (past 8 hours): - 09/06/24 00:30 09/06/24 00:30 09/06/24 01:00 Temperature Pulse Rate 61 58 L Respiratory Rate 16 16 Blood Pressure 208/86 H Pulse Oximetry 95 94 Oxygen Delivery Method Oxygen Flow Rate 09/06/24 01:01 09/06/24 01:01 09/06/24 01:30 Temperature Pulse Rate 62 Respiratory Rate Blood Pressure 183/79 H 181/81 H Pulse Oximetry 94 Oxygen Delivery Method Oxygen Flow Rate 09/06/24 01:30 09/06/24 02:00 09/06/24 02:00 Temperature Pulse Rate 58 L 59 L Respiratory Rate 13 14 Blood Pressure 170/74 H Pulse Oximetry 94 94 Oxygen Delivery Method Oxygen Flow Rate 0 09/06/24 02:30 09/06/24 03:31 09/06/24 04:21 Temperature 96.8 F L Pulse Rate 60 Respiratory Rate 18 Blood Pressure 177/82 H Pulse Oximetry 96 93 Oxygen Delivery Method Room Air Room Air Oxygen Flow Rate 0 09/06/24 04:21 09/06/24 08:00 Temperature 96.9 F L Pulse Rate 60 66 Respiratory Rate 16 Blood Pressure 174/78 H 177/73 H Pulse Oximetry 93 98 Oxygen Delivery Method Oxygen Flow Rate 0 Oxygen Delivery Method Room Air Oxygen Flow Rate 0 Narrative Exam Narrative: Pt is sitting comfortably in her bed, answering questions appropriately. Has no complaints and is feeling much better aftyer IV NS HEENT: AT/ NC head EOMI, PERRL, no scleral icterus, normal conjunctivae, neck is suppe, No TMG, no Adenopathy Chest : CTA , BS present and equal Bilat. No Wheezing, rales or rhonchi Heart : RRR< NO M/ Gallop or rub. Abd : Soft NT ND BS are WNL No HSM Ext : no edema, or cyanosis. No calf tenderness bilat. Neuro: A and O x 4, Cranial Nerves : 2-12 tested, WNL No motor or sensory deficits noted. Visual hernandez are WNL bilat. No tremors Psych: Normal mood, Normal Judgement and insight Objective Labs 09/06/24 05:53 09/06/24 05:53 Labs: Laboratory Results - last 24 hr 09/05/24 09/06/24 09/06/24 21:19 01:15 02:59 WBC 7.6 RBC 4.13 Hgb 13.2 Hct 36.9 MCV 89.4 MCH 32.0 MCHC 35.8 RDW 12.2 Plt Count 316 Neut % (Auto) 64.4 Lymph % (Auto) 23.3 L Crowley % (Auto) 10.8 Eos % (Auto) 0.9 L Baso % (Auto) 0.6 Neut # (Auto) 4900 Lymph # (Auto) 1800 Crowley # (Auto) 800 Eos # (Auto) 100 Baso # (Auto) 0 PT 13.2 H INR 1.2 APTT 42 H Sodium 122 L 125 L Potassium 2.8 L 3.0 L Chloride 83 L 86 L Carbon Dioxide 28 27 BUN 12 12 Creatinine 0.68 0.64 Estimated GFR > 60 > 60 BUN/Creatinine Ratio 17.6 18.8 Glucose 106 97 Calcium 9.7 9.6 Phosphorus Magnesium 1.6 Total Bilirubin 1.2 AST 35 ALT 36 H Alkaline Phosphatase 69 Total Creatine Kinase 130 Troponin I < 0.012 NT-Pro-B Natriuret Pep < 20 Total Protein 7.4 Albumin 4.7 Globulin 2.7 Albumin/Globulin Ratio 1.7 Lipase 56 Nasal Screen MRSA (PCR) Not detected 09/06/24 05:53 WBC 7.3 RBC 4.14 Hgb 13.4 Hct 37.2 MCV 89.9 MCH 32.4 MCHC 36.1 H RDW 12.1 Plt Count 304 Neut % (Auto) 60.1 Lymph % (Auto) 26.9 Crowley % (Auto) 10.9 Eos % (Auto) 1.0 L Baso % (Auto) 1.1 Neut # (Auto) 4400 Lymph # (Auto) 2000 Crowley # (Auto) 800 Eos # (Auto) 100 Baso # (Auto) 100 PT INR APTT Sodium 127 L Potassium 3.1 L Chloride 90 L Carbon Dioxide 27 BUN 10 Creatinine 0.64 Estimated GFR > 60 BUN/Creatinine Ratio 15.6 Glucose 98 Calcium 9.6 Phosphorus 3.8 Magnesium 1.8 Total Bilirubin AST ALT Alkaline Phosphatase Total Creatine Kinase Troponin I NT-Pro-B Natriuret Pep Total Protein Albumin Globulin Albumin/Globulin Ratio Lipase Nasal Screen MRSA (PCR) Assessment & Plan Assessment and plan (1) Confusion state: Problem details: Transient/ resolved Vision changes: intermittent / resolved, her NIHSS : is zero CT head : negative for acute changes CTA hd and Neck: No arterial narrowing or obstruction Shall get Echo and Check MRI Brain r/o Stroke , though her symptoms could have been sec to her electrolyte abn and dehydration. Status: Acute (2) Uncontrolled hypertension: Problem details: Continue home anti HTN meds except Chlorathalidone. Status: Acute Time-Based Coding :: [TOTAL MINUTES] spent with patient and on the chart (including review of chart, obtaining history, exam, reviewing outside data, placing orders, documenting exam and treatment plan, and counseling patient) on [DATE]. Quality VTE Deep Vein Thrombosis/Pulmonary Embolism Present on Admission: No
[2024-09-06] MEDS: LABETALOL 100 MG TABLET PO ×2 (08:26→21:24)
[2024-09-06] MEDS: LOSARTAN 50 MG TABLET 100 MG PO (08:26)
[2024-09-06] MEDS: LEVOTHYROXINE 100 MCG, LEVOTHYROXINE 75 MCG 175 MCG PO (08:26)
[2024-09-06] MEDS: LORATADINE 10 MG TABLET PO (08:26)
[2024-09-06] MEDS: ACETAMINOPHEN 325 MG TABLET 650 MG PO (08:27)
[2024-09-06] MEDS: ENOXAPARIN 40 MG/0.4 ML SYRINGE SUBCUT (08:27)
--- NOTE | 2024-09-06 09:16 | OT.IPNOTE ---
Per nursing pt completely independent in the room, per hospitalist ok to discharge therapy eval orders.
[2024-09-06] MEDS: DOXAZOSIN 2 MG TABLET 12 MG PO (09:56)
[2024-09-06 10:29] LABS: BUN Creatinine Ratio 15.4 (6-22); Blood Urea Nitrogen 10 mg/dL (7-17); Calcium 9.6 mg/dL (8.4-10.2); Carbon Dioxide 28 mmol/L (22-32); Chloride 90 mmol/L (98-107); Estimated Glomerular Filt Rate > 60 mL/min (>60); Glucose 136 mg/dL (80-110); HEMOLYSIS 19 (0-50); Potassium 3.2 mmol/L (3.4-5.1); Sodium 128 mmol/L (137-145)
[2024-09-06 10:46] LABS: Sodium Urine Random 31 mmol/L (30-90)
--- NOTE | 2024-09-06 11:16 | PT-IP ANOTE ---
Physical Therapy order received. Hospitalist reports no skilled Physical Therapy needs at this time. Will discharge order. Please re-order if new needs arise during this hospitalization.
--- NOTE | 2024-09-06 13:40 | CM.DANOTE ---
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 PCP: Mark Reed ([place]) Payer: [facility] Reviewed chart, pt discussed in multidisciplinary rounds this morning. Patient with hypokalemia and hyponatremia. Patient lives independently with her spouse. No barriers identified at this time to patient's safe discharge home w/family to assist; close outpatient f/u recommended. CM team will plan to follow clinical course closely in case any DC needs or concerns arise. ALINA Neff Discharge Planning/Care Management CM Discharge Assessment Start: 09/06/24 13:37 Freq: Status: Active Protocol: Document 09/06/24 13:37 DEV (Rec: 09/06/24 13:40 DEV [id number]) Discharge Planning Assessment Assigned Model Technician ALINA Morley DPOA/Assigned Designee Name Marilynn Barnett May, spouse Contact Information [phone] Advance Directives? Yes Advance Directives on File No History Provided By Patient,Medical Record Prior Living Arrangements House Household Members spouse Type of transporation used prior to Drives own vehicle admit Independent with ADL's Yes Is patient alert and oriented? Yes Barriers to Discharge No Discharge Plan Home Transportation Arrangement Family to provide transport. Referrals Initiated None needed
[2024-09-06 15:01] LABS: Appearance Urine UA CLEAR; Bilirubin Urine UA NEGATIVE (NEGATIVE); Color Urine UA YELLOW; Glucose Urine UA NEGATIVE (Negative); Ketones Urine UA TRACE (NEGATIVE); Leukocyte Esterase Urine UA NEGATIVE (NEGATIVE); Nitrite Urine UA NEGATIVE (Negative); Occult Blood Urine UA NEGATIVE (Negative); Protein Urine UA NEGATIVE (Negative); Specific Gravity Urine UA <=1.005 (1.000-1.035); Urobilinogen Urine UA 0.2 E.U./dL (0.2)
[2024-09-06 15:03] LABS: pH Urine UA 6.5 (4.5-8.0)
[2024-09-06 15:19] LABS: Urine Volume 10mL (spun)
[2024-09-06 15:20] LABS: Bacteria Urine None Seen; Culture Indicated Urine Cult Not Indicated; RBC Urine None Seen (0-5/HPF); Squamous Epithelial Cell Urine 0-1 /HPF (0-5/HPF); WBC Urine None Seen (0-5/HPF)
--- NOTE | 2024-09-06 15:28 | PM.HP.1 ---
History of Present Illness History of Present Illness Date Patient Seen: 09/06/24 Time Patient Seen: 09:00 Chief complaint: states hypertensive crisis Narrative: Per overnight provider: 68 y/o F with h/o GERD, Hypothyroidism, Asthma, chronic headaches, yesterday noted some word finding difficulty, HTN, on multiple anti HTN agents, including Chlorthalidone, has noted for last 3-4 days, intermittent Blurry vision in Left lower quadrant, and confusion, no weakness of any extremity , no fall , or hitting her head. She had noted mild headache, wi8th improvement with Tylenol. She had noted her SBPs have been high in 190 to 200 range over last few days. She had taken Chlorthalidone 75 mg daily instead of her usual dose of 50 mg daily. She also does a metabolic re set routine with intermittent fasting , and drinking more fluids these last few weeks. Denies Abd pain, dysuria, Vomiting , Diarrhea, CP or cough Noted some intermittent nausea yeasterday but this has subsided. She also sees her [facility] / Dr Ant aFbian at [facility] , for investigation related to Aldosterponism , as pt has a Family h/o same. She came to ED for evaluation. IN ED, BP was elevated 190 to 200 range, HR 63 Afebrile, RR 18, O2 sat 96 % on RA Her Sodium was low at 122, K at 2.8 CL 83 Troponin not elevated < 0.012 Creat / BUN : 12/ 0.[address] head WNL EKG : NSR HR 62 , no acute ST changes seen. Pt had a CT head, CTA Head and neck done : No arterial narrowing or acute changes. She was given IV NS and referred to Hospitalist ike for further care. Interval history: History confirmed as above this morning. She feels much better without current symptoms this morning. Attempted to discuss with endocrinology directly, but he was unavailable today or until Tuesday. He did leave a note after being informed of this admission which essentially stated he will abandon workup. Recommended aldactone starting this evening and increasing to 100 mg tomorrow. renin/aldosterone sent this morning. Urine sodium was 31. UA with low specific gravity but after fluids given. Na has improved to 128 with fluids. Reduced monitoring to q8hr. [facility] Medical History (Updated 09/06/24 @ 09:06 by Catherine Mora MD) Uncontrolled hypertension Family history of hyperaldosteronism Right knee pain UTI (urinary tract infection) Chronic hypokalemia Acute pain of left shoulder Chronic left shoulder pain Posterior right knee pain Short leg syndrome, right, acquired Strain of right piriformis muscle Somatic dysfunction of lower extremity Sacral region somatic dysfunction Segmental and somatic dysfunction of abdomen and other regions Pelvic somatic dysfunction Lumbar region somatic dysfunction Iliotibial band syndrome, right leg Acute right-sided low back pain with sciatica History of open sigmoidectomy Hx of endometriosis Transaminitis Dysuria Urinary frequency Bilateral chronic knee pain Arthralgia of hands, bilateral Oral thrush Thigh cramp Vision changes Sinusitis Hordeolum externum (stye) Upper extremity somatic dysfunction Segmental and somatic dysfunction of rib cage Wears glasses Hearing loss Rosacea (~2015) Actinic keratosis (~2012) Asthma Anxiety Restless leg syndrome Chronic back pain (~2016) Ankle pain (~2004) Vertigo (~2016) Tinnitus (~2016) Recurrent sinusitis (~1974) GERD (gastroesophageal reflux disease) Chronic diarrhea Pain of right thumb Resistant hypertension Hyperlipidemia (~1996) Hypothyroidism (acquired) (~1996) Exercise-induced asthma Hypothyroidism Hypertension (~1996) Excessive daytime sleepiness Snoring Primary insomnia Obstructive sleep apnea syndrome Obesity Surgical History Hx of total hysterectomy Anesthesia History of sinus surgery (~2018) History of ankle surgery (~2012) S/P removal of left ovary (~1986) History of appendectomy (~1990) History of hysterectomy (~1990) Skin cancer (~1985) Family History Father Myocardial infarction Cancer History of heart disease Hypertension Mental health problem Mother Cancer Mental health problem Brother Atrial fibrillation History of heart disease Hypertension Sister Atrial fibrillation Myocardial infarction Squamous cell skin cancer History of heart disease Hypertension Grandfather Cancer Grandmother History of heart disease Hypertension Mental health problem Stroke Grandfather Cancer Grandmother Diabetes mellitus History of heart disease Social History marital status: household members: spouse lives independently: Yes caregiver/support person: No education level: college occupational status: other 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 history: over 6 months ago Smoking Status: Former smoker alcohol intake: current Meds Home Medications and Allergies Home Medications Medication Instructions Recorded Confirmed Type fluticasone propionate 50 1 spray intranasal QDAY #16 grams 08/25/21 09/05/24 Rx mcg/actuation nasal spray,suspension (Flonase Allergy Relief) chlorthalidone 25 mg tablet 50 mg PO DAILY 11/03/22 09/05/24 History meclizine 12.5 mg tablet 12.5 - 25 mg (1 - 2 x 12.5 mg) PO 11/07/23 09/05/24 Rx BID PRN dizziness #30 tabs budesonide 0.25 mg/2 mL suspension 0.25 mg (2 mL) inhalation DAILY 01/06/24 09/05/24 Rx for nebulization (Pulmicort) #60 mL albuterol sulfate 90 mcg/actuation 2 puff inhalation Q6H PRN asthma 07/06/24 09/05/24 Rx aerosol inhaler #8.5 grams fexofenadine 180 mg tablet 180 mg PO QDAY #10 tabs 07/26/24 09/05/24 Rx ([facility] All[facility]) omeprazole 20 mg capsule,delayed 20 mg PO DAILY #10 caps 07/26/24 09/05/24 Rx release ascorbic acid (vitamin C) 250 mg 250 mg PO DAILY 09/05/24 09/05/24 History tablet calcium 250 mg (as 1 tab PO DAILY 09/05/24 09/05/24 History carbonate)-vitamin D3 3.125 mcg (125 unit) tablet cranberry extract 405 mg capsule 405 mg PO DAILY 09/05/24 09/05/24 History doxazosin 8 mg tablet,extended 12 mg PO DAILY 09/05/24 09/05/24 History release 24 hr labetalol 100 mg tablet 100 mg PO BID 09/05/24 09/05/24 History levothyroxine 175 mcg tablet 175 mcg PO DAILY 09/05/24 09/05/24 History losartan 100 mg tablet 100 mg PO DAILY 09/05/24 09/05/24 History trazodone 150 mg tablet 100 mg PO BEDTIME PRN sleep 09/05/24 09/05/24 History zinc gluconate 50 mg tablet 50 mg PO DAILY 09/05/24 09/05/24 History Allergies Allergy/AdvReac Type Severity Reaction Status Date / Time gluten Allergy Severe Agitated Verified 09/05/24 21:01 codeine [CODEINE] Allergy Mild Rash Verified 09/05/24 21:01 Review of Systems Review of Systems Narrative: All other systems reviewed with the patient and are negative unless otherwise stated. Exam Vital Signs (past 8 hours): - 09/06/24 08:00 09/06/24 08:26 09/06/24 09:56 Temperature 96.9 F L Pulse Rate 66 Respiratory Rate 16 Blood Pressure 177/73 H 168/79 H 168/79 H Pulse Oximetry 98 Oxygen Flow Rate 0 09/06/24 12:00 09/06/24 12:00 Temperature 97.6 F Pulse Rate 67 Respiratory Rate 17 Blood Pressure 144/67 H 144/67 H Pulse Oximetry 98 Oxygen Flow Rate 0 Oxygen Delivery Method Room Air Oxygen Flow Rate 0 Narrative Exam Narrative: General:? Patient is well developed and well nourished, in no distress at this time. HEENT:? Normocephalic, atraumatic, extraocular muscles intact, oral pharynx is clear and mucous membranes are moist. Neck: supple and symmetric, trachea is midline, no cervical adenopathy. Negative for JVD Chest:? Normal AP diameter and contour without kyphoscoliosis, no tachypnea, equal chest rise bilaterally. Lungs:? CTA b/l no wheezing rhonchi or rales. Cardio:?RRR no m/r/g. Abdomen: S NT ND. No CVA tenderness. Musculoskeletal:? Muscle strength and tone are equal within normal limits, no deformity. Extremities: No edema or joint effusions. No cyanosis or clubbing. Skin:? Pale,? Warm to touch,dry and intact without rashes, ulcerations or petechiae.? Objective Labs 09/06/24 05:53 09/06/24 09:58 Labs: Laboratory Results - last 24 hr 09/05/24 09/06/24 09/06/24 21:19 01:15 02:59 WBC 7.6 RBC 4.13 Hgb 13.2 Hct 36.9 MCV 89.4 MCH 32.0 MCHC 35.8 RDW 12.2 Plt Count 316 Neut % (Auto) 64.4 Lymph % (Auto) 23.3 L [place] % (Auto) 10.8 Eos % (Auto) 0.9 L Baso % (Auto) 0.6 Neut # (Auto) 4900 Lymph # (Auto) 1800 [place] # (Auto) 800 Eos # (Auto) 100 Baso # (Auto) 0 PT 13.2 H INR 1.2 APTT 42 H Sodium 122 L 125 L Potassium 2.8 L 3.0 L Chloride 83 L 86 L Carbon Dioxide 28 27 BUN 12 12 Creatinine 0.68 0.64 Estimated GFR > 60 > 60 BUN/Creatinine Ratio 17.6 18.8 Glucose 106 97 Calcium 9.7 9.6 Phosphorus Magnesium 1.6 Total Bilirubin 1.2 AST 35 ALT 36 H Alkaline Phosphatase 69 Total Creatine Kinase 130 Troponin I < 0.012 NT-Pro-B Natriuret Pep < 20 Total Protein 7.4 Albumin 4.7 Globulin 2.7 Albumin/Globulin Ratio 1.7 Lipase 56 Urine Color Urine Appearance Urine pH Ur Specific [place] Urine Protein Urine Glucose (UA) Urine Ketones Urine Occult Blood Urine Nitrate Urine Bilirubin Urine Urobilinogen Ur Leukocyte Esterase Urine RBC Urine WBC Ur Squamous Epith Cells Urine Bacteria Ur Culture Indicated? Vol Urine Centrifuged Ur Random Sodium Nasal Screen MRSA (PCR) Not detected 09/06/24 09/06/24 09/06/24 05:53 09:52 09:58 WBC 7.3 RBC 4.14 Hgb 13.4 Hct 37.2 MCV 89.9 MCH 32.4 MCHC 36.1 H RDW 12.1 Plt Count 304 Neut % (Auto) 60.1 Lymph % (Auto) 26.9 [place] % (Auto) 10.9 Eos % (Auto) 1.0 L Baso % (Auto) 1.1 Neut # (Auto) 4400 Lymph # (Auto) 2000 [place] # (Auto) 800 Eos # (Auto) 100 Baso # (Auto) 100 PT INR APTT Sodium 127 L 128 L Potassium 3.1 L 3.2 L Chloride 90 L 90 L Carbon Dioxide 27 28 BUN 10 10 Creatinine 0.64 0.65 Estimated GFR > 60 > 60 BUN/Creatinine Ratio 15.6 15.4 Glucose 98 136 H Calcium 9.6 9.6 Phosphorus 3.8 Magnesium 1.8 Total Bilirubin AST ALT Alkaline Phosphatase Total Creatine Kinase Troponin I NT-Pro-B Natriuret Pep Total Protein Albumin Globulin Albumin/Globulin Ratio Lipase Urine Color Yellow Urine Appearance Clear Urine pH 6.5 Ur Specific [place] <=1.005 Urine Protein Negative Urine Glucose (UA) Negative Urine Ketones Trace H Urine Occult Blood Negative Urine Nitrate Negative Urine Bilirubin Negative Urine Urobilinogen 0.2 Ur Leukocyte Esterase Negative Urine RBC None seen Urine WBC None seen Ur Squamous Epith Cells 0-1 /hpf Urine Bacteria None seen Ur Culture Indicated? Cult not indicated Vol Urine Centrifuged 10ml (spun) Ur Random Sodium 31 Nasal Screen MRSA (PCR) Assessment & Plan Assessment & Plan narrative: 1. Acute metabolic encephalopathy, POA, improving - MRI negative for acute infarct, and TTE unremarkable. TIA ruled out and symptoms consistent with metabolic encephalopathy due to hyponatremia. - continue IV fluids - can reduce to q8 hr BMP with Na up to 128. - urine Na was 31. UA unremarkable. 2. Hyponatremia - likely hypovolemic, presume due to chlorthalidone at this time. - continue fluids for now - BMP q8 - Urine Na 31. Osm pending. 3. Presumed hyperaldosteronism - has been holding spironolactone, per documentation (fax sent) recommende renin/aldosterone which was sent this AM. Recommending starting 50 mg aldactone tonight, increasing to 100 mg tomorrow and outpatient follow up. 4. HTN, presumed secondary to #3, POA - resume spironolactone, losartan, labetalol, doxazosin. Hold chlorthalidone for now with hyponatremia. Code: Full, surrogate is patient's spouse DVT: Lovenox daily I have utilized all available immediate resources to obtain, update, or review the patient's current medications. Dispo: patient admitted under inpatient status. Unclear if will be able to discharge home or possible SNF, will have PT/OT evaluations. Additional history obtained via discussions with the endocrinology nursing staff at the clinic today and overnight hospitalist. These discussions contributed to the creation of the above assessment and plan. I have reviewed patient's presenting documentation, labs, and imaging personally. Time-Based Coding :: [TOTAL MINUTES] spent with patient and on the chart (including review of chart, obtaining history, exam, reviewing outside data, placing orders, documenting exam and treatment plan, and counseling patient) on [DATE]. Quality VTE Deep Vein Thrombosis/Pulmonary Embolism Present on Admission: No
[2024-09-06] MEDS: SPIRONOLACTONE 25 MG TABLET 50 MG PO (16:56)
[2024-09-06 18:28] LABS: BUN Creatinine Ratio 20.9 (6-22); Blood Urea Nitrogen 14 mg/dL (7-17); Calcium 9.1 mg/dL (8.4-10.2); Carbon Dioxide 25 mmol/L (22-32); Chloride 94 mmol/L (98-107); Estimated Glomerular Filt Rate > 60 mL/min (>60); Glucose 104 mg/dL (80-110); HEMOLYSIS < 15 (0-50); Potassium 3.8 mmol/L (3.4-5.1); Sodium 128 mmol/L (137-145)
[2024-09-07] VITALS (10 sets, daily range): BP systolic 147–198; BP diastolic 66–87; PULSE 61–76; RESP 16–18; TEMP 36.1–36.2; O2SAT 93–97
[2024-09-07] MEDS: SODIUM CHLORIDE 0.9% 1,000 ML 100 ML IV (00:10)
[2024-09-07 05:16] LABS: Add Manual Diff / Slide Review NO; Basophils Absolute Auto 100 /uL (0-100); Basophils Percent Auto 0.9 % (0-2); Eosinophils Absolute Auto 100 /uL (0-450); Eosinophils Percent Auto 1.4 % (2-4); Hematocrit 37.9 % (36-46); Hemoglobin 13.5 g/dL (12.0-16.0); Lymphocytes Absolute Auto 2000 /uL (1100-4500); Lymphocytes Percent Auto 29.5 % (25-40); Mean Corpuscular HGB Conc 35.6 % (30-36); Mean Corpuscular Volume 90.1 fL (80-100); Monocytes Absolute Auto 800 /uL (0-900); Monocytes Percent Auto 12.3 % (3-14); Neutrophils Absolute Auto 3800 /uL (1500-7000); Neutrophils Percent Auto 55.9 % (50-75); Platelet Count 303 X10^3/uL (150-400); Red Blood Cell Count 4.21 X10^6/uL (4.0-5.2); Red Cell Distribution Width 12.6 % (11.6-14.8); White Blood Cell Count 6.8 X10^3/uL (4.5-11.0)
[2024-09-07 05:28] LABS: BUN Creatinine Ratio 12.7 (6-22); Blood Urea Nitrogen 9 mg/dL (7-17); Calcium 9.8 mg/dL (8.4-10.2); Carbon Dioxide 28 mmol/L (22-32); Chloride 96 mmol/L (98-107); Estimated Glomerular Filt Rate > 60 mL/min (>60); Glucose 98 mg/dL (80-110); HEMOLYSIS < 15 (0-50); Potassium 3.5 mmol/L (3.4-5.1); Sodium 134 mmol/L (137-145)
[2024-09-07] MEDS: LEVOTHYROXINE 100 MCG, LEVOTHYROXINE 75 MCG 175 MCG PO (05:34)
[2024-09-07] MEDS: LABETALOL 100 MG TABLET PO (08:01)
[2024-09-07] MEDS: LORATADINE 10 MG TABLET PO (08:01)
[2024-09-07] MEDS: LOSARTAN 50 MG TABLET 100 MG PO (08:01)
[2024-09-07] MEDS: ENOXAPARIN 40 MG/0.4 ML SYRINGE SUBCUT (08:01)
[2024-09-07] MEDS: DOXAZOSIN 2 MG TABLET 12 MG PO (08:01)
--- NOTE | 2024-09-07 08:46 | PM.DS.1 ---
History of Present Illness History of Present Illness Date Patient Seen: 09/07/24 Time Patient Seen: 08:46 Chief complaint: states hypertensive crisis Narrative: Per overnight provider: 68 y/o F with h/o GERD, Hypothyroidism, Asthma, chronic headaches, yesterday noted some word finding difficulty, HTN, on multiple anti HTN agents, including Chlorthalidone, has noted for last 3-4 days, intermittent Blurry vision in Left lower quadrant, and confusion, no weakness of any extremity , no fall , or hitting her head. She had noted mild headache, wi8th improvement with Tylenol. She had noted her SBPs have been high in 190 to 200 range over last few days. She had taken Chlorthalidone 75 mg daily instead of her usual dose of 50 mg daily. She also does a metabolic re set routine with intermittent fasting , and drinking more fluids these last few weeks. Denies Abd pain, dysuria, Vomiting , Diarrhea, CP or cough Noted some intermittent nausea yeasterday but this has subsided. She also sees her Interactive Graphic Designer / Dr Ant Fabian at [facility] , for investigation related to Aldosterponism , as pt has a Family h/o same. She came to ED for evaluation. IN ED, BP was elevated 190 to 200 range, HR 63 Afebrile, RR 18, O2 sat 96 % on RA Her Sodium was low at 122, K at 2.8 CL 83 Troponin not elevated < 0.012 Creat / BUN : 12/ 0.[address] head WNL EKG : NSR HR 62 , no acute ST changes seen. Pt had a CT head, CTA Head and neck done : No arterial narrowing or acute changes. She was given IV NS and referred to Hospitalist ike for further care. Interval history: History confirmed as above this morning. She feels much better without current symptoms this morning. Attempted to discuss with endocrinology directly, but he was unavailable today or until Tuesday. He did leave a note after being informed of this admission which essentially stated he will abandon workup. Recommended aldactone starting this evening and increasing to 100 mg tomorrow. renin/aldosterone sent this morning. Urine sodium was 31. UA with low specific gravity but after fluids given. Na has improved to 128 with fluids. Reduced monitoring to q8hr. Discharge Providers Provider Date of admission: 09/06/24 00:54 Discharge Date: 09/07/24 Primary care physician: Mark Gant DO Consults: 09/06/24 04:26 Consult to Occupational Therapy Evaluate & Treat Comment: cognition Physician Instructions: Evaluate and treat Consult to Physical Therapy Evaluate & Treat Comment: Physician Instructions: Evaluate and Treat Discharge provider: Delfin Regalado DO Summary Hospital Course Discharge Diagnosis: 1. Acute metabolic encephalopathy, POA, improving 2. Hyponatremia, POA, improving 3. Presumed hyperaldosteronism, chronic 4. HTN, presumed secondary to #3, POA Hospital Course: This is a 68-year-old female with a past medical history of hypertension, secondary to presumed hyperaldosteronism who was admitted with an acute metabolic encephalopathy secondary to hyponatremia and hypokalemia as well. She had been holding on spironolactone as part of workup for presumed hyperaldosteronism as directed by her hydraulic rockbreaker operator. I reached out to her hydraulic rockbreaker operator, and discussed with the clinic but received a note that he had written in the chart after receiving a phone call. He recommended aborting workup but did recommend a renin aldosterone level which was ordered and is currently pending at the time of discharge. He also recommended restarting Aldactone, and increasing to 100 mg on the day of discharge. The patient was given IV fluids with gradual improvement in her sodium and resolution of her encephalopathy. On the day of discharge her sodium was 134. I had been holding her chlorthalidone due to her hyponatremia but given her improvement she can resume these on discharge. She was also hypertensive, which is chronic for her but with resumption of her previous medications this should improve at home. Additional evaluation included a urine sodium which was 31. Hyponatremia was likely due to hypovolemic causes and chlorthalidone use. Given her prior stability in sodium levels in the past with chlorthalidone and her marked hypertension this should be safe to resume on discharge. According to documentation her hydraulic rockbreaker operator would like to check labs next week which is appropriate. Recommend continued follow-up with her hydraulic rockbreaker operator after discharge. No additional changes to her home medications are recommended at the time of discharge. Time Spent with Patient Time spent: Greater than 30 minutes Exam Vital Signs (past 8 hours): - 09/07/24 01:31 09/07/24 01:32 09/07/24 01:32 Temperature Pulse Rate 76 66 Respiratory Rate Blood Pressure 147/66 H Pulse Oximetry 96 93 Oxygen Flow Rate 09/07/24 04:00 09/07/24 04:56 09/07/24 04:58 Temperature 96.9 F L Pulse Rate 62 63 Respiratory Rate 18 Blood Pressure 152/68 H 152/68 H Pulse Oximetry 95 97 Oxygen Flow Rate 0 09/07/24 04:58 09/07/24 07:49 09/07/24 07:50 Temperature Pulse Rate 66 63 Respiratory Rate Blood Pressure 198/76 H Pulse Oximetry 95 97 Oxygen Flow Rate 09/07/24 07:50 09/07/24 08:42 Temperature 97.1 F L Pulse Rate 63 63 Respiratory Rate 16 Blood Pressure 198/76 H Pulse Oximetry 96 97 Oxygen Flow Rate 0 Oxygen Delivery Method Room Air Oxygen Flow Rate 0 Narrative Exam Narrative: General:? Patient is well developed and well nourished, in no distress at this time. HEENT:? Normocephalic, atraumatic, extraocular muscles intact, oral pharynx is clear and mucous membranes are moist. Neck: supple and symmetric, trachea is midline, no cervical adenopathy. Negative for JVD Chest:? Normal AP diameter and contour without kyphoscoliosis, no tachypnea, equal chest rise bilaterally. Lungs:? CTA b/l no wheezing rhonchi or rales. Cardio:?RRR no m/r/g. Abdomen: S NT ND. No CVA tenderness. Musculoskeletal:? Muscle strength and tone are equal within normal limits, no deformity. Extremities: No edema or joint effusions. No cyanosis or clubbing. Skin:? Pale,? Warm to touch,dry and intact without rashes, ulcerations or petechiae.? Objective Labs 09/07/24 04:50 09/07/24 04:50 Labs: Laboratory Results - last 24 hr 09/06/24 09/06/24 09/06/24 09:52 09:58 18:10 WBC RBC Hgb Hct MCV MCH MCHC RDW Plt Count Neut % (Auto) Lymph % (Auto) [place] % (Auto) Eos % (Auto) Baso % (Auto) Neut # (Auto) Lymph # (Auto) [place] # (Auto) Eos # (Auto) Baso # (Auto) Sodium 128 L 128 L Potassium 3.2 L 3.8 Chloride 90 L 94 L Carbon Dioxide 28 25 BUN 10 14 Creatinine 0.65 0.67 Estimated GFR > 60 > 60 BUN/Creatinine Ratio 15.4 20.9 Glucose 136 H 104 Calcium 9.6 9.1 Urine Color Yellow Urine Appearance Clear Urine pH 6.5 Ur Specific Alliance <=1.005 Urine Protein Negative Urine Glucose (UA) Negative Urine Ketones Trace H Urine Occult Blood Negative Urine Nitrate Negative Urine Bilirubin Negative Urine Urobilinogen 0.2 Ur Leukocyte Esterase Negative Urine RBC None seen Urine WBC None seen Ur Squamous Epith Cells 0-1 /hpf Urine Bacteria None seen Ur Culture Indicated? Cult not indicated Vol Urine Centrifuged 10ml (spun) Ur Random Sodium 31 09/07/24 04:50 WBC 6.8 RBC 4.21 Hgb 13.5 Hct 37.9 MCV 90.1 MCH 32.0 MCHC 35.6 RDW 12.6 Plt Count 303 Neut % (Auto) 55.9 Lymph % (Auto) 29.5 [place] % (Auto) 12.3 Eos % (Auto) 1.4 L Baso % (Auto) 0.9 Neut # (Auto) 3800 Lymph # (Auto) 2000 [place] # (Auto) 800 Eos # (Auto) 100 Baso # (Auto) 100 Sodium 134 L Potassium 3.5 Chloride 96 L Carbon Dioxide 28 BUN 9 Creatinine 0.71 Estimated GFR > 60 BUN/Creatinine Ratio 12.7 Glucose 98 Calcium 9.8 Urine Color Urine Appearance Urine pH Ur Specific Alliance Urine Protein Urine Glucose (UA) Urine Ketones Urine Occult Blood Urine Nitrate Urine Bilirubin Urine Urobilinogen Ur Leukocyte Esterase Urine RBC Urine WBC Ur Squamous Epith Cells Urine Bacteria Ur Culture Indicated? Vol Urine Centrifuged Ur Random Sodium [facility] Medical History (Updated 09/06/24 @ 09:06 by Catherine Mora MD) Uncontrolled hypertension Family history of hyperaldosteronism Right knee pain UTI (urinary tract infection) Chronic hypokalemia Acute pain of left shoulder Chronic left shoulder pain Posterior right knee pain Short leg syndrome, right, acquired Strain of right piriformis muscle Somatic dysfunction of lower extremity Sacral region somatic dysfunction Segmental and somatic dysfunction of abdomen and other regions Pelvic somatic dysfunction Lumbar region somatic dysfunction Iliotibial band syndrome, right leg Acute right-sided low back pain with sciatica History of open sigmoidectomy Hx of endometriosis Transaminitis Dysuria Urinary frequency Bilateral chronic knee pain Arthralgia of hands, bilateral Oral thrush Thigh cramp Vision changes Sinusitis Hordeolum externum (stye) Upper extremity somatic dysfunction Segmental and somatic dysfunction of rib cage Wears glasses Hearing loss Rosacea (~2015) Actinic keratosis (~2012) Asthma Anxiety Restless leg syndrome Chronic back pain (~2016) Ankle pain (~2004) Vertigo (~2016) Tinnitus (~2016) Recurrent sinusitis (~1974) GERD (gastroesophageal reflux disease) Chronic diarrhea Pain of right thumb Resistant hypertension Hyperlipidemia (~1996) Hypothyroidism (acquired) (~1996) Exercise-induced asthma Hypothyroidism Hypertension (~1996) Excessive daytime sleepiness Snoring Primary insomnia Obstructive sleep apnea syndrome Obesity Surgical History Hx of total hysterectomy Anesthesia History of sinus surgery (~2018) History of ankle surgery (~2012) S/P removal of left ovary (~1986) History of appendectomy (~1990) History of hysterectomy (~1990) Skin cancer (~1985) Family History Father Myocardial infarction Cancer History of heart disease Hypertension Mental health problem Mother Cancer Mental health problem Brother Atrial fibrillation History of heart disease Hypertension Sister Atrial fibrillation Myocardial infarction Squamous cell skin cancer History of heart disease Hypertension Grandfather Cancer Grandmother History of heart disease Hypertension Mental health problem Stroke Grandfather Cancer Grandmother Diabetes mellitus History of heart disease Social History marital status: household members: spouse lives independently: Yes caregiver/support person: No education level: college occupational status: other 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 You are okay to resume your previous medications but hydraulic rockbreaker operator recommended only taking spironolactone 100 mg nightly. Please keep in touch with your hydraulic rockbreaker operator. Discharge orders & Medications Prescriptions: New spironolactone 100 mg tablet 100 mg PO DAILY Qty: 30 0RF Continued budesonide [Pulmicort] 0.25 mg/2 mL suspension for nebulization 0.25 mg inhalation DAILY Qty: 60 5RF albuterol sulfate 90 mcg/actuation HFA aerosol inhaler 2 puff inhalation Q6H PRN (Reason: asthma) Qty: 8.5 1RF omeprazole 20 mg capsule,delayed release(DR/EC) 20 mg PO DAILY Qty: 10 0RF fexofenadine [Sherry Allergy] 180 mg tablet 180 mg PO QDAY Qty: 10 0RF fluticasone propionate [Flonase Allergy Relief] 50 mcg/actuation spray,suspension 1 spray Intranasal QDAY Qty: 16 8RF meclizine 12.5 mg tablet 12.5 - 25 mg PO BID PRN (Reason: dizziness) Qty: 30 0RF chlorthalidone 25 mg tablet 50 mg PO DAILY Patient Comments: took 75mg this am per hydraulic rockbreaker operator levothyroxine 175 mcg Tablet 175 mcg PO DAILY ascorbic acid (vitamin C) 250 mg Tablet 250 mg PO DAILY cranberry extract 405 mg Capsule 405 mg PO DAILY Rx Instructions: administer with a meal zinc gluconate 50 mg Tablet 50 mg PO DAILY losartan 100 mg Tablet 100 mg PO DAILY doxazosin 8 mg Tablet Extended Release 24hr 12 mg PO DAILY Rx Instructions: must administer with breakfast calcium carbonate-vitamin D3 250 mg-3.125 mcg (125 unit) Tablet 1 tab PO DAILY trazodone 150 mg tablet 100 mg PO BEDTIME PRN (Reason: sleep) labetalol 100 mg tablet 100 mg PO BID Follow up/Referrals: Mark Gant, [Primary Care Provider] - Diet/Activity/Treatments Diet: Diet as Tolerated and Regular Activity: As tolerated, no restrictions Visit Report/Discharge Packet Stand Alone Forms: Patient Portal/API, Stroke Signs & Symptoms Discharge Data Primary Care Provider: Mark Gant Quality VTE Deep Vein Thrombosis/Pulmonary Embolism Present on Admission: No
[2024-09-07 11:36] LABS: Osmolality Urine 226 mOsmol/kg (.)
--- NOTE | 2024-09-07 14:07 | CM.DPNOTE ---
DC Note Discharge home w/sp, no CM needs. Close outpatient follow up. DEV
== END 2024-09-07 09:17 | disposition home or self-care (01) | DRG 640 ==
LOC: ED 09-06 00:53 → AC 09-06 00:56 → ICU 09-06 02:16 → AC 09-06 11:10
PROVIDERS: Internal Medicine; Admitting Provider Hospitalist; Emergency Provider Emergency Medicine; Family Provider Family Medicine; PCP Family Medicine; Referring Provider Emergency Medicine; Visit Provider Hospitalist
DX: E87.1 Hypo-osmolality and hyponatremia (principal); G93.41 Metabolic encephalopathy; H53.8 Other visual disturbances; T50.2X5A Adverse effect of carbonic-anhydrase inhibitors, benzothiadiazides and other diuretics, initial encounter; E26.9 Hyperaldosteronism, unspecified; I15.2 Hypertension secondary to endocrine disorders; E87.6 Hypokalemia; E86.1 Hypovolemia; K21.9 Gastro-esophageal reflux disease without esophagitis; E03.9 Hypothyroidism, unspecified; Z79.890 Hormone replacement therapy; Z87.891 Personal history of nicotine dependence
CPT/HCPCS: 36415; 70450; 70496; 70498; 70551; 71045; 80048; 80053; 80069; 81001; 81003; 82088; 82550; 83690; 83735; 83880; 83935; 84100; 84244; 84300; 84484; 85025; 85610; 85730; 87797; 93005; 93306; 96360; 99284; J1650; Q9967

== ENCOUNTER → 2024-09-12 14:07 | Outpatient (CLI) | payer OTHER, SELFPAY ==
[2024-09-06 02:51] VITALS: BMI 28.6
[2024-09-12 15:43] LABS: Albumin 4.8 g/dL (3.5-5.0); BUN Creatinine Ratio 17.3 (6-22); Blood Urea Nitrogen 14 mg/dL (7-17); Calcium 9.9 mg/dL (8.4-10.2); Carbon Dioxide 24 mmol/L (22-32); Chloride 100 mmol/L (98-107); Estimated Glomerular Filt Rate > 60 mL/min (>60); Glucose 98 mg/dL (80-110); HEMOLYSIS < 15 (0-50); Phosphorous 3.8 mg/dL (2.8-4.1); Potassium 4.8 mmol/L (3.4-5.1); Sodium 134 mmol/L (137-145)
== END ==
PROVIDERS: Family Provider Family Medicine; PCP Family Medicine; Referring Provider Student in an Organized Health Care Education/Training Program; Visit Provider Student in an Organized Health Care Education/Training Program
DX: I10 Essential (primary) hypertension (principal)
CPT/HCPCS: 36415; 80069

== ENCOUNTER → 2024-09-19 15:23 | Outpatient (CLI) | payer MEDICARE, OTHER, SELFPAY ==
[2024-09-06 02:51] VITALS: BMI 28.6
[2024-09-19 16:23] LABS: Albumin 4.9 g/dL (3.5-5.0); Blood Urea Nitrogen 19 mg/dL (7-17); Calcium 9.9 mg/dL (8.4-10.2); Carbon Dioxide 22 mmol/L (22-32); Chloride 99 mmol/L (98-107); Estimated Glomerular Filt Rate > 60 mL/min (>60); Glucose 96 mg/dL (80-110); HEMOLYSIS 21 (0-50); Phosphorous 4.1 mg/dL (2.8-4.1); Potassium 4.6 mmol/L (3.4-5.1); Sodium 133 mmol/L (137-145)
== END ==
LOC: LAB 15:24
PROVIDERS: Family Provider Family Medicine; PCP Family Medicine; Referring Provider Student in an Organized Health Care Education/Training Program; Visit Provider Student in an Organized Health Care Education/Training Program
DX: I10 Essential (primary) hypertension (principal)
CPT/HCPCS: 36415; 80069

== ENCOUNTER → 2024-09-26 17:06 | Outpatient (CLI) | payer OTHER, SELFPAY ==
[2024-09-06 02:51] VITALS: BMI 28.6
[2024-09-26 18:31] LABS: Albumin 4.8 g/dL (3.5-5.0); BUN Creatinine Ratio 21.6 (6-22); Blood Urea Nitrogen 16 mg/dL (7-17); Calcium 10.3 mg/dL (8.4-10.2); Carbon Dioxide 25 mmol/L (22-32); Chloride 97 mmol/L (98-107); Estimated Glomerular Filt Rate > 60 mL/min (>60); Glucose 96 mg/dL (80-110); HEMOLYSIS < 15 (0-50); Phosphorous 4.2 mg/dL (2.8-4.1); Potassium 4.2 mmol/L (3.4-5.1); Sodium 133 mmol/L (137-145)
== END ==
PROVIDERS: Family Provider Family Medicine; PCP Family Medicine; Referring Provider Student in an Organized Health Care Education/Training Program; Visit Provider Student in an Organized Health Care Education/Training Program
DX: I10 Essential (primary) hypertension (principal)
CPT/HCPCS: 36415; 80069

== ENCOUNTER → 2024-10-05 10:10 | Outpatient (CLI) | payer OTHER, SELFPAY ==
[2024-09-06 02:51] VITALS: BMI 28.6
[2024-10-05 11:19] LABS: Albumin 4.9 g/dL (3.5-5.0); Blood Urea Nitrogen 16 mg/dL (7-17); Carbon Dioxide 25 mmol/L (22-32); Chloride 98 mmol/L (98-107); Estimated Glomerular Filt Rate > 60 mL/min (>60); Glucose 112 mg/dL (80-110); HEMOLYSIS < 15 (0-50); Phosphorous 3.9 mg/dL (2.8-4.1); Potassium 4.9 mmol/L (3.4-5.1); Sodium 134 mmol/L (137-145)
== END ==
PROVIDERS: Family Provider Family Medicine; PCP Family Medicine; Referring Provider Student in an Organized Health Care Education/Training Program; Visit Provider Student in an Organized Health Care Education/Training Program
DX: I10 Essential (primary) hypertension (principal)
CPT/HCPCS: 36415; 80069

== ENCOUNTER → 2024-10-10 15:15 | Outpatient (CLI) | payer OTHER, SELFPAY ==
[2024-09-06 02:51] VITALS: BMI 28.6
[2024-10-10 17:30] LABS: Albumin 4.9 g/dL (3.5-5.0); Blood Urea Nitrogen 15 mg/dL (7-17); Calcium 9.6 mg/dL (8.4-10.2); Carbon Dioxide 25 mmol/L (22-32); Chloride 98 mmol/L (98-107); Estimated Glomerular Filt Rate > 60 mL/min (>60); Glucose 101 mg/dL (80-110); HEMOLYSIS < 15 (0-50); Phosphorous 3.7 mg/dL (2.8-4.1); Sodium 134 mmol/L (137-145)
== END ==
LOC: LAB 15:17
PROVIDERS: Family Provider Family Medicine; PCP Family Medicine; Referring Provider Student in an Organized Health Care Education/Training Program; Visit Provider Student in an Organized Health Care Education/Training Program
DX: I10 Essential (primary) hypertension (principal)
CPT/HCPCS: 36415; 80069

== ENCOUNTER → 2024-11-06 08:12 | Outpatient (CLI) | payer OTHER, SELFPAY ==
[2024-09-06 02:51] VITALS: BMI 28.6
[2024-11-06 09:29] LABS: Blood Urea Nitrogen 20 mg/dL (7-17); Calcium 9.7 mg/dL (8.4-10.2); Carbon Dioxide 26 mmol/L (22-32); Chloride 99 mmol/L (98-107); Estimated Glomerular Filt Rate > 60 mL/min (>60); Glucose 98 mg/dL (70-99); HEMOLYSIS < 15 (0-50); Phosphorous 4.7 mg/dL (2.8-4.1); Potassium 5.1 mmol/L (3.4-5.1); Sodium 135 mmol/L (137-145)
== END ==
LOC: LAB 08:14
PROVIDERS: Family Provider Family Medicine; PCP Family Medicine; Referring Provider Student in an Organized Health Care Education/Training Program; Visit Provider Student in an Organized Health Care Education/Training Program
DX: I10 Essential (primary) hypertension (principal)
CPT/HCPCS: 36415; 80069

== ENCOUNTER → 2024-11-24 11:27 | Outpatient (CLI) | payer OTHER, SELFPAY ==
[2024-09-06 02:51] VITALS: BMI 28.6
[2024-11-24 13:06] LABS: Albumin 4.5 g/dL (3.5-5.0); BUN Creatinine Ratio 21.3 (6-22); Blood Urea Nitrogen 16 mg/dL (7-17); Calcium 9.6 mg/dL (8.4-10.2); Carbon Dioxide 24 mmol/L (22-32); Chloride 100 mmol/L (98-107); Estimated Glomerular Filt Rate > 60 mL/min (>60); Glucose 95 mg/dL (70-99); HEMOLYSIS < 15 (0-50); Phosphorous 3.9 mg/dL (2.8-4.1); Potassium 4.4 mmol/L (3.4-5.1); Sodium 133 mmol/L (137-145)
== END ==
PROVIDERS: Family Provider Family Medicine; PCP Family Medicine; Referring Provider Family Medicine; Visit Provider Student in an Organized Health Care Education/Training Program
DX: I10 Essential (primary) hypertension (principal)
CPT/HCPCS: 36415; 80069

== ENCOUNTER → 2024-12-01 12:00 | Outpatient (CLI) | payer OTHER, SELFPAY ==
[2024-09-06 02:51] VITALS: BMI 28.6
[2024-12-01 13:26] LABS: Albumin 4.5 g/dL (3.5-5.0); BUN Creatinine Ratio 22.7 (6-22); Blood Urea Nitrogen 17 mg/dL (7-17); Calcium 9.4 mg/dL (8.4-10.2); Carbon Dioxide 24 mmol/L (22-32); Chloride 102 mmol/L (98-107); Estimated Glomerular Filt Rate > 60 mL/min (>60); Glucose 86 mg/dL (70-99); HEMOLYSIS < 15 (0-50); Phosphorous 3.5 mg/dL (2.8-4.1); Potassium 4.4 mmol/L (3.4-5.1); Sodium 135 mmol/L (137-145)
[2024-12-01 13:42] LABS: Free T4, Direct Thyroxine 1.15 ng/dL (0.78-2.19)
[2024-12-01 13:56] LABS: Thyroid Stimulating Hormone 3.04 uIU/mL (0.47-4.68)
== END ==
LOC: LAB 12:03
PROVIDERS: Family Provider Family Medicine; PCP Family Medicine; Referring Provider Family Medicine; Visit Provider Student in an Organized Health Care Education/Training Program
DX: E03.9 Hypothyroidism, unspecified (principal); I10 Essential (primary) hypertension
CPT/HCPCS: 36415; 80069; 84439; 84443

== ENCOUNTER → 2024-12-12 11:26 | Outpatient (CLI) | payer OTHER, SELFPAY ==
[2024-09-06 02:51] VITALS: BMI 28.6
[2024-12-12 13:27] LABS: Albumin 4.4 g/dL (3.5-5.0); BUN Creatinine Ratio 19.5 (6-22); Blood Urea Nitrogen 16 mg/dL (7-17); Calcium 9.4 mg/dL (8.4-10.2); Carbon Dioxide 25 mmol/L (22-32); Chloride 104 mmol/L (98-107); Estimated Glomerular Filt Rate > 60 mL/min (>60); Glucose 95 mg/dL (70-99); HEMOLYSIS < 15 (0-50); Potassium 3.9 mmol/L (3.4-5.1); Sodium 138 mmol/L (137-145)
== END ==
PROVIDERS: Family Provider Family Medicine; PCP Family Medicine; Referring Provider Student in an Organized Health Care Education/Training Program; Visit Provider Student in an Organized Health Care Education/Training Program
DX: I10 Essential (primary) hypertension (principal)
CPT/HCPCS: 36415; 80069

== ENCOUNTER → 2024-12-18 17:29 | Outpatient (CLI) | payer OTHER, SELFPAY ==
[2024-09-06 02:51] VITALS: BMI 28.6
[2024-12-18 18:15] LABS: Albumin 4.6 g/dL (3.5-5.0); BUN Creatinine Ratio 19.7 (6-22); Blood Urea Nitrogen 15 mg/dL (7-17); Carbon Dioxide 25 mmol/L (22-32); Chloride 103 mmol/L (98-107); Estimated Glomerular Filt Rate > 60 mL/min (>60); Glucose 91 mg/dL (70-99); HEMOLYSIS < 15 (0-50); Phosphorous 3.8 mg/dL (2.8-4.1); Potassium 3.8 mmol/L (3.4-5.1); Sodium 137 mmol/L (137-145)
== END ==
PROVIDERS: Family Provider Family Medicine; PCP Family Medicine; Referring Provider Family Medicine; Visit Provider Student in an Organized Health Care Education/Training Program
DX: I10 Essential (primary) hypertension (principal)
CPT/HCPCS: 36415; 80069

== ENCOUNTER → 2024-12-26 14:41 | Outpatient (CLI) | payer MEDICARE, OTHER, SELFPAY ==
[2024-09-06 02:51] VITALS: BMI 28.6
[2024-12-26 15:33] LABS: Albumin 4.5 g/dL (3.5-5.0); Blood Urea Nitrogen 14 mg/dL (7-17); Calcium 9.1 mg/dL (8.4-10.2); Carbon Dioxide 25 mmol/L (22-32); Chloride 103 mmol/L (98-107); Estimated Glomerular Filt Rate > 60 mL/min (>60); Glucose 90 mg/dL (70-99); HEMOLYSIS 19 (0-50); Phosphorous 3.9 mg/dL (2.8-4.1); Potassium 4.0 mmol/L (3.4-5.1); Sodium 137 mmol/L (137-145)
== END ==
PROVIDERS: Family Provider Family Medicine; PCP Family Medicine; Referring Provider Student in an Organized Health Care Education/Training Program; Visit Provider Student in an Organized Health Care Education/Training Program
DX: I10 Essential (primary) hypertension (principal)
CPT/HCPCS: 36415; 80069

== ENCOUNTER → 2025-01-02 17:23 | Outpatient (CLI) | payer MEDICARE, OTHER, SELFPAY ==
[2024-09-06 02:51] VITALS: BMI 28.6
[2025-01-02 18:10] LABS: Albumin 4.6 g/dL (3.5-5.0); Blood Urea Nitrogen 15 mg/dL (7-17); Calcium 9.0 mg/dL (8.4-10.2); Carbon Dioxide 27 mmol/L (22-32); Chloride 104 mmol/L (98-107); Estimated Glomerular Filt Rate > 60 mL/min (>60); Glucose 95 mg/dL (70-99); HEMOLYSIS < 15 (0-50); Phosphorous 3.9 mg/dL (2.8-4.1); Potassium 3.8 mmol/L (3.4-5.1); Sodium 138 mmol/L (137-145)
== END ==
PROVIDERS: Family Provider Family Medicine; PCP Family Medicine; Referring Provider Family Medicine; Visit Provider Student in an Organized Health Care Education/Training Program
DX: I10 Essential (primary) hypertension (principal)
CPT/HCPCS: 36415; 80069

== ENCOUNTER → 2025-01-08 07:31 | Outpatient (CLI) | payer MEDICARE, OTHER, SELFPAY ==
[2024-09-06 02:51] VITALS: BMI 28.6
[2025-01-08 08:08] LABS: Albumin 4.6 g/dL (3.5-5.0); Blood Urea Nitrogen 18 mg/dL (7-17); Calcium 9.5 mg/dL (8.4-10.2); Carbon Dioxide 26 mmol/L (22-32); Chloride 104 mmol/L (98-107); Estimated Glomerular Filt Rate > 60 mL/min (>60); Glucose 107 mg/dL (70-99); HEMOLYSIS < 15 (0-50); Phosphorous 4.7 mg/dL (2.8-4.1); Potassium 3.9 mmol/L (3.4-5.1); Sodium 137 mmol/L (137-145)
[2025-01-17 02:36] LABS: Plama Renin, LC/MS/MS <0.167 ng/mL/hr (.)
== END ==
PROVIDERS: Family Provider Family Medicine; PCP Family Medicine; Referring Provider Student in an Organized Health Care Education/Training Program; Visit Provider Student in an Organized Health Care Education/Training Program
DX: E26.9 Hyperaldosteronism, unspecified (principal); I10 Essential (primary) hypertension
CPT/HCPCS: 36415; 80069; 82088; 84244

== ENCOUNTER → 2025-01-21 12:52 | Outpatient (CLI) | payer MEDICARE, OTHER, SELFPAY ==
[2024-09-06 02:51] VITALS: BMI 28.6
[2025-01-21 14:21] LABS: Albumin 4.7 g/dL (3.5-5.0); Blood Urea Nitrogen 12 mg/dL (7-17); Calcium 9.6 mg/dL (8.4-10.2); Carbon Dioxide 26 mmol/L (22-32); Chloride 101 mmol/L (98-107); Estimated Glomerular Filt Rate > 60 mL/min (>60); Glucose 96 mg/dL (70-99); HEMOLYSIS < 15 (0-50); Phosphorous 3.7 mg/dL (2.8-4.1); Potassium 4.1 mmol/L (3.4-5.1); Sodium 136 mmol/L (137-145)
== END ==
PROVIDERS: Family Provider Family Medicine; PCP Family Medicine; Referring Provider Student in an Organized Health Care Education/Training Program; Visit Provider Student in an Organized Health Care Education/Training Program
DX: I10 Essential (primary) hypertension (principal)
CPT/HCPCS: 36415; 80069

== ENCOUNTER → 2025-02-01 15:02 | Outpatient (CLI) | payer MEDICARE, OTHER, SELFPAY ==
[2024-09-06 02:51] VITALS: BMI 28.6
--- NOTE | 2025-02-01 15:06 | DI.MG.S_ITS ---
MM screening mammo BI: 02/01/2025. BI-RADS: 1 CLINICAL: 69-year old female for bilateral screening mammogram. Tyrer-Cuzick lifetime risk of 8.1%. No personal or first-degree family history of breast cancer. Current reported family history of breast cancer: maternal aunt and paternal aunt. PRIOR EXAMS 02/06/2024, 02/01/2023, 01/11/2022, 12/08/2020. MAMMOGRAPHY TECHNIQUE: 2D and 3D (tomosynthesis) digital mammographic views obtained, with additional images as needed for full coverage. Current study was also evaluated with a Computer Aided Detection (CAD) system. DENSITY B. There are scattered areas of fibroglandular density. MAMMOGRAPHY FINDINGS Bilateral: No suspicious mass, asymmetry, microcalcification, or other abnormality seen. IMPRESSION: * No evidence of malignancy. RECOMMENDATIONS Bilateral * Annual screening mammography. OVERALL ASSESSMENT CATEGORY BI-RADS-1: Negative. [employer] recommends annual screening mammography beginning at age 40 for women with average risk of breast cancer. ELECTRONICALLY SIGNED: Nery Sesay M.D. on 02/01/2025 at 09:49:18 PM PT Interpreting Station ID: [id number]
== END ==
PROVIDERS: Family Provider Family Medicine; PCP Family Medicine; Referring Provider Student in an Organized Health Care Education/Training Program; Visit Provider Student in an Organized Health Care Education/Training Program
DX: Z12.31 Encounter for screening mammogram for malignant neoplasm of breast (principal); Z80.3 Family history of malignant neoplasm of breast
CPT/HCPCS: 77063; 77067

== ENCOUNTER → 2025-02-01 15:45 | Outpatient (CLI) | payer MEDICARE, OTHER, SELFPAY ==
[2024-09-06 02:51] VITALS: BMI 28.6
[2025-02-01 18:21] LABS: Albumin 4.6 g/dL (3.5-5.0); Blood Urea Nitrogen 15 mg/dL (7-17); Calcium 9.4 mg/dL (8.4-10.2); Carbon Dioxide 27 mmol/L (22-32); Chloride 102 mmol/L (98-107); Estimated Glomerular Filt Rate > 60 mL/min (>60); Glucose 90 mg/dL (70-99); HEMOLYSIS < 15 (0-50); Phosphorous 4.2 mg/dL (2.8-4.1); Potassium 4.0 mmol/L (3.4-5.1); Sodium 138 mmol/L (137-145)
== END ==
PROVIDERS: Family Provider Family Medicine; PCP Family Medicine; Referring Provider Student in an Organized Health Care Education/Training Program; Visit Provider Student in an Organized Health Care Education/Training Program
DX: I10 Essential (primary) hypertension (principal)
CPT/HCPCS: 36415; 80069

== ENCOUNTER → 2025-03-04 11:47 | Outpatient (CLI) | payer MEDICARE, OTHER, SELFPAY ==
[2024-09-06 02:51] VITALS: BMI 28.6
[2025-03-04 12:28] LABS: Albumin 4.8 g/dL (3.5-5.0); Blood Urea Nitrogen 15 mg/dL (7-17); Calcium 9.7 mg/dL (8.4-10.2); Carbon Dioxide 23 mmol/L (22-32); Chloride 102 mmol/L (98-107); Estimated Glomerular Filt Rate > 60 mL/min (>60); Glucose 108 mg/dL (70-99); HEMOLYSIS < 15 (0-50); Phosphorous 4.2 mg/dL (2.8-4.1); Potassium 4.5 mmol/L (3.4-5.1); Sodium 136 mmol/L (137-145)
== END ==
PROVIDERS: Family Provider Family Medicine; PCP Family Medicine; Referring Provider Student in an Organized Health Care Education/Training Program; Visit Provider Student in an Organized Health Care Education/Training Program
DX: I10 Essential (primary) hypertension (principal)
CPT/HCPCS: 36415; 80069

== ENCOUNTER → 2025-03-16 10:53 | Outpatient (CLI) | payer MEDICARE, OTHER, SELFPAY ==
[2024-09-06 02:51] VITALS: BMI 28.6
[2025-03-16 11:49] LABS: Albumin 4.7 g/dL (3.5-5.0); Blood Urea Nitrogen 20 mg/dL (7-17); Calcium 9.6 mg/dL (8.4-10.2); Carbon Dioxide 25 mmol/L (22-32); Chloride 101 mmol/L (98-107); Estimated Glomerular Filt Rate > 60 mL/min (>60); Glucose 105 mg/dL (70-99); HEMOLYSIS < 15 (0-50); Phosphorous 3.7 mg/dL (2.8-4.1); Potassium 4.6 mmol/L (3.4-5.1); Sodium 136 mmol/L (137-145)
== END ==
PROVIDERS: Family Provider Family Medicine; PCP Family Medicine; Referring Provider Student in an Organized Health Care Education/Training Program; Visit Provider Student in an Organized Health Care Education/Training Program
DX: I10 Essential (primary) hypertension (principal)
CPT/HCPCS: 36415; 80069

== ENCOUNTER → 2025-05-21 09:50 | Outpatient (CLI) | payer MEDICARE, OTHER, SELFPAY ==
[2024-09-06 02:51] VITALS: BMI 28.6
[2025-05-21 11:05] LABS: Albumin 4.7 g/dL (3.5-5.0); Blood Urea Nitrogen 18 mg/dL (7-17); Calcium 9.4 mg/dL (8.4-10.2); Carbon Dioxide 24 mmol/L (22-32); Chloride 101 mmol/L (98-107); Estimated Glomerular Filt Rate > 60 mL/min (>60); Glucose 106 mg/dL (70-99); HEMOLYSIS < 15 (0-50); Phosphorous 4.1 mg/dL (2.8-4.1); Potassium 4.9 mmol/L (3.4-5.1); Sodium 135 mmol/L (137-145)
== END ==
PROVIDERS: Family Provider Family Medicine; PCP Family Medicine; Referring Provider Student in an Organized Health Care Education/Training Program; Visit Provider Student in an Organized Health Care Education/Training Program
DX: I10 Essential (primary) hypertension (principal)
CPT/HCPCS: 36415; 80069